=== PATIENT | female | born 1995 | race Hispanic/Latino ===

== ENCOUNTER 2018-04-22 14:53 | Emergency (ER) | payer OTHER, SELFPAY ==
[2018-04-22 14:58] VITALS: BP 120/68; PULSE 84; RESP 16; TEMP 36.6; O2SAT 98; BMI 27.9
--- NOTE | 2018-04-22 15:04 | ED.LOWEXIN ---
HPI - Extremity Injury (Lower) <PRO Dowd - Last Filed: 04/22/18 22:32> General Chief Complaint: Extremity Injury, Lower Stated Complaint: 'NEEDS US FOR LFT LEG' Time Seen by Provider: 04/22/18 15:04 History of Present Illness HPI Narrative: 22-year-old female here for complaint of pain into her left calf for the last few days. She recently had surgery for tunnel release left lower extremity. She was seen by her primary care provider today and due to pain in her calf she was sent here to rule out DVT. She denies any swelling no increased temperature no erythema to the area. She denies any shortness of breath or chest pain. She denies any other concerns or complaints at this time. Related Data Home Medications Medication Instructions Recorded Confirmed No Known Home Medications 04/22/18 04/22/18 Allergies Allergy/AdvReac Type Severity Reaction Status Date / Time No Known Drug Allergies Allergy Verified 04/07/18 12:15 Review of Systems <PRO Dwod - Last Filed: 04/22/18 22:32> Constitutional Denies chills, Denies fever(s), Denies lethargy and Denies weakness Eyes Denies change in vision, Denies eye discharge, Denies irritation and Denies loss of vision ENT Ears, Nose, Mouth, and Throat: Denies change in voice, Denies neck pain and Denies sore throat Cardiovascular Denies chest pain, Denies irregular heart rhythm, Denies lightheadedness, Denies palpitations, Denies dyspnea, Denies dyspnea on exertion and Denies orthopnea Respiratory Denies cough, Denies dyspnea, Denies dyspnea on exertion and Denies wheezing Gastrointestinal Gastrointestinal: Denies abdominal pain, Denies change in bowel habits, Denies diarrhea, Denies nausea and Denies vomiting Genitourinary Denies hematuria, Denies flank pain, Denies urinary incontinence and Denies urinary urgency Musculoskeletal Denies neck pain Comments: Left calf pain Integumentary/Breasts Denies pruritus, Denies erythema, Denies rash and Denies wounds Neurologic Denies loss of vision and Denies weakness Endocrine Denies palpitations Allergic/Immunologic Denies wheezing Exam <PRO Dowd Last Filed: 04/22/18 22:32> Initial Vital Signs Initial Vital Signs: Vital Signs Temperature 98 F 04/22/18 14:58 Pulse Rate 84 04/22/18 14:58 Respiratory Rate 16 04/22/18 14:58 Blood Pressure 120/68 04/22/18 14:58 Pulse Oximetry 98 04/22/18 14:58 Const General: cooperative and well developed Nutritional Appearance: well nourished Orientation: alert, awake, oriented x3 and not confused HENWA Mouth: oral mucosae normal and moist mucous membranes Eyes Sclera: sclerae normal Cornea: corneas normal EOM: EOM intact bilaterally Resp Effort & Inspection: normal respiratory effort, able to speak in complete sentences, no respiratory distress and no use of accessory muscles Auscultation: clear to auscultation bilaterally, no rales, no rhonchi and no wheezes Cardio Rate: regular rate Rhythm: regular rhythm Heart Sounds: no click, no gallops, no murmurs and no rubs Pulses: normal peripheral pulses Skin General: no rashes or lesions noted, No jaundice and No petechiae Neuro General: alert, oriented x3, gait normal and no focal motor deficits Speech: speech normal Extrem Other: Left calf with no swelling no erythema no bruising no deformities. No increased temperature. Homans sign negative. Distal CMS is intact <Vanessa Valenzuela DO - Last Filed: 04/29/18 18:49> Initial Vital Signs Initial Vital Signs: Vital Signs Temperature 98 F 04/22/18 14:58 Pulse Rate 84 04/22/18 14:58 Respiratory Rate 16 04/22/18 14:58 Blood Pressure 120/68 04/22/18 14:58 Pulse Oximetry 98 04/22/18 14:58 Course <PRO Dowd - Last Filed: 04/22/18 22:32> Orders Ordered: ED Orders 04/22/18 15:32 periph venous low extrem lt Stat Vital Signs - 8 hr 04/22/18 14:58 04/22/18 16:59 Temperature 98 F Pulse Rate 84 87 Respiratory Rate 16 15 Blood Pressure 120/68 Blood Pressure [Left Arm] 122/81 H Pulse Oximetry 98 97 <Vanessa Valenzuela DO - Last Filed: 04/29/18 18:49> Orders Ordered: ED Orders 04/22/18 15:32 periph venous low extrem lt Stat Vital Signs - 8 hr 04/22/18 14:58 04/22/18 16:59 Temperature 98 F Pulse Rate 84 87 Respiratory Rate 16 15 Blood Pressure 120/68 Blood Pressure [Left Arm] 122/81 H Pulse Oximetry 98 97 MDM - Extremity Injury (Lower) <PRO Dowd - Last Filed: 04/22/18 22:32> [facility] Narrative Medical decision making narrative: Ultrasound of left lower extremity was obtained and was negative for DVT. Signs and symptoms presents as calf pain secondary to her recent surgery for tarsal tunnel release. [id number] Tylenol or Motrin as needed for any discomfort. Follow up with primary care provider. For any worsening symptoms return to the emergency room. Discharge Plan Departure Patient Disposition: Home, Self-Care Clinical Impression: Leg pain, left Discharge Date/Time: 04/22/18 17:10 Interventions: ED Discharge Assessment Last Done: 04/22/18 17:08 Instructions: How to Care for a Surgical Wound Activity Restrictions/Additional Instructions: Ultrasound of left lower extremity was obtained and was negative for DVT. Signs and symptoms presents as calf pain secondary to her recent surgery for tarsal tunnel release. [id number] Tylenol or Motrin as needed for any discomfort. Follow up with primary care provider. For any worsening symptoms return to the emergency room. Prescriptions: No Action No Known Home Medications RF: 0 Referrals: [facility] [Provider Group] <Vanessa Valenzuela DO - Last Filed: 04/29/18 18:49> Cosign ED Attending Ghazala Attestation: I was immediately available in the department for consultation. Documentation has been reviewed. I agree with assessment and plan.
--- NOTE | 2018-04-22 15:27 | PC.NURSE ---
Pt with recent surgery. Reports cramping in calf starting a few days ago. Followed up with her ortho doc today and sent for possible dvt. Pt reports increased pain with palpation of calf.
--- NOTE | 2018-04-22 15:32 | DI.US.S_ITS ---
PROCEDURE: US PERIPH VENOUS LOW EXTREM LT INDICATIONS: pain in calf after recent surgery. TECHNIQUE: Real-time imaging, as well as color and pulse Doppler interrogation, were performed of the lower extremity deep veins from the inguinal ligament to the popliteal fossa. COMPARISON: None. FINDINGS: The deep veins are normally compressible, and free of intraluminal thrombus. Color and pulse Doppler demonstrate normal phasic intraluminal flow. There is normal augmentation response to distal compression maneuver. IMPRESSION: Negative for DVT Dictated by: Jese Monroy M.D. on 04/22/2018 at 16:54 Approved by: Jese Monroy M.D. on 04/22/2018 at 16:55
[2018-04-22 16:59] VITALS: BP 122/81; PULSE 87; RESP 15; O2SAT 97
== END 2018-04-22 17:10 | disposition home or self-care (01) ==
PROVIDERS: Emergency Provider Nurse Practitioner Family
DX: M79.662 Pain in left lower leg (principal)
CPT/HCPCS: 93971; 99282; 99283

== ENCOUNTER 2018-10-11 21:49 | Emergency (ER) | payer OTHER, SELFPAY ==
[2018-10-11 21:59] VITALS: BP 126/79; PULSE 88; RESP 22; TEMP 37.1; O2SAT 100
--- NOTE | 2018-10-11 22:34 | DI.CT.S_ITS ---
PROCEDURE: CT ABDOMEN PELVIS W CON INDICATIONS: LUQ pain >LLQ pain, slight lft elevated last week TECHNIQUE: After the administration of intravenous contrast, 5 mm thick sections acquired from the diaphragm to the symphysis. 5 mm coronal and sagittal reformats were acquired. For radiation dose reduction, the following was used: automated exposure control, adjustment of mA and/or kV according to patient size. COMPARISON: None. FINDINGS: Image quality: Excellent. ABDOMEN: Lung bases: Lung bases are clear. Heart size is normal. Solid organs: Liver is normal in size and enhancement. Gallbladder surgically absent. Biliary system is non dilated. Pancreas enhances normally. Spleen is normal in size and enhancement. No adrenal nodules. Kidneys demonstrate normal size and enhancement, without hydronephrosis. Peritoneum and bowel: Bowel loops demonstrate normal wall thickness and caliber. No free fluid or air. Appendix partially visualized and appears normal on image 64 series 2 Nodes and vessels: No retroperitoneal or mesenteric adenopathy by size criteria. Aorta and inferior vena cava are normal in size. Miscellaneous: No ventral hernias. PELVIS: Genitourinary: Bladder wall thickness is normal. There is a presumed physiologic involuting right ovarian cyst image 71 series 2 measuring 2 cm. There is mild surrounding fluid. Miscellaneous: No inguinal hernias or adenopathy. Bones: No suspicious bony lesions. No vertebral body compression fractures. IMPRESSION: Presumed involuting right ovarian cyst (in the setting of NEGATIVE test, which is clinically reported) with associated mild adjacent free fluid. Status post cholecystectomy. Mild hepatic steatosis. Elsewhere, no acute process. Dictated by: Chris Barahona M.D. on 10/12/2018 at 7:53 Approved by: Chris Barahona M.D. on 10/12/2018 at 7:57
--- NOTE | 2018-10-11 22:34 | ED.ABDPAIN ---
HPI - Abdominal Pain General Chief Complaint: Abdominal Pain Stated Complaint: Nausea,pain left side lower ribs Time Seen by Provider: 10/11/18 22:18 Source: patient Mode of arrival: ambulatory Limitations: no limitations History of Present Illness HPI narrative: This is a 23-year-old female who comes to the emergency department with complaint of abdominal pain. She states it has been going on for the last 2 or 3 days. I would send her left back and front of the upper abdomen kind of under her ribs. She states not in her chest. She states it has been pretty intermittent particularly with eating or lying flat. She states that she has been nauseated she is not having regular vomiting. She has been having bowel movements, she has not had diarrhea. She is not having any urinary frequency urgency or dysuria. She is not having any vaginal discharge or bleeding. Patient states she has had issues with right upper quadrant pain and had her gallbladder out. She has continued to have some right upper quadrant issues takes medication for it but was told to stop because her liver enzymes were slightly elevated. She is scheduled to have her enzymes rechecked in about 2 weeks and have an ultrasound. Patient states this pain is new and well feels sort of similar is a totally different location. She has not had fevers. Related Data Previous Rx's Medication Instructions Recorded cephalexin [Keflex] 500 mg PO BID #20 cap 10/12/18 Allergies Allergy/AdvReac Type Severity Reaction Status Date / Time No Known Drug Allergies Allergy Verified 04/07/18 12:15 Review of Systems Review of Systems All systems reviewed & are unremarkable except as noted in HPI and below Constitutional Denies chills and Denies fever(s) Cardiovascular Denies chest pain and Denies dyspnea Respiratory Reports pain on inspiration (in abdomen) and Denies dyspnea Gastrointestinal Gastrointestinal: Reports abdominal pain, Denies melena, Denies hematochezia, Denies change in bowel habits, Denies constipation, Denies diarrhea, Reports nausea and Denies vomiting Genitourinary Denies abnormal vaginal bleeding, Denies hematuria, Denies urinary frequency, Denies dysuria, Denies pelvic pain, Reports flank pain (left), Denies urinary hesitancy, Denies urinary urgency and Denies vaginal discharge Musculoskeletal Reports back pain (left flank pain) [facility] Medical History Closed left ankle fracture (Acute) Gastritis (Acute) Numbness (Acute) Surgical History Hx of cholecystectomy (Acute) Social History household members: significant other Smoking Status: Never smoker alcohol intake: never Exam Narrative Exam Narrative: GENERAL: Alert and oriented x three, Well-nourished, well-appearing female in moderate distress. HEENT: Head normocephalic, atraumatic, EOMI, pupils reactive, face symmetric, moist mucous membranes NECK: Supple, full range of motion CARDIOVASCULAR: Regular rate and rhythm without murmurs, rubs or gallops. RESPIRATORY: Breath sounds equal bilaterally, no wheezes rales or rhonchi. ABDOMEN: Soft, Patient has left upper quadrant tenderness greater than left lower although she is quite uncomfortable with palpation of both. Normoactive bowel sounds all 4 quadrants. No guarding or rebound, rigidity, no mass, No pulsatile bruit. Patient does not have any right upper quadrant tenderness or right lower quadrant tenderness. : mild left CVA tenderness, no right CVA tenderness. EXTREMITIES: Normal range of motion, no clubbing or edema. Neurovascularly intact NEUROLOGICAL: Cranial nerves II through XII grossly intact. Moving all extremities SKIN: Warm, dry, no petechiae, no rashes or lesions. Initial Vital Signs Initial Vital Signs: Vital Signs Temperature 98.7 F 10/11/18 21:59 Pulse Rate 88 10/11/18 21:59 Respiratory Rate 22 10/11/18 21:59 Blood Pressure 126/79 10/11/18 21:59 Pulse Oximetry 100 10/11/18 21:59 Course Orders Ordered: ED Orders 10/11/18 22:20 Complete Blood Count AUTO DIFF Stat Comprehensive Metabolic Panel Stat Lipase Stat Partial Thromboplastin Time Stat Prothrombin Time INR Stat 10/11/18 22:34 CT abdomen pelvis w con Stat 10/12/18 00:10 Urine Microscopic Stat Discontinued Medications Hydrocodone Bitart/Acetaminophen (Vicodin Prepack) 1 bottle MISC SEEINSTR ONE Stop: 10/12/18 01:04 Last Admin: 10/12/18 01:26 Dose: 1 bottle Cephalexin HCl (Keflex) 500 mg PO NOW ONE Stop: 10/12/18 01:04 Last Admin: 10/12/18 01:26 Dose: 500 mg Sodium Chloride (Normal Saline 0.9%) 1,000 mls @ 1,000 mls/hr IV BOLUS ONE Stop: 10/11/18 23:32 Last Infusion: 10/11/18 23:46 Dose: 0 mls/hr Admin: 10/11/18 22:46 Dose: 1,000 mls/hr Ketorolac Tromethamine (Toradol) 30 mg IV NOW ONE Stop: 10/11/18 22:34 Last Admin: 10/11/18 22:46 Dose: 30 mg Ondansetron HCl (Zofran) 4 mg IV NOW ONE Stop: 10/11/18 22:34 Last Admin: 10/11/18 22:46 Dose: 4 mg Vital Signs - 8 hr 10/11/18 21:59 10/12/18 01:34 Temperature 98.7 F Pulse Rate 88 72 Respiratory Rate 22 16 Blood Pressure 126/79 110/65 Pulse Oximetry 100 98 MDM - Abdominal Pain Lab Data Result diagrams: 10/11/18 22:20 10/11/18 22:20 Lab Results 10/11/18 10/11/18 10/11/18 Range/Units 22:20 22:20 22:20 WBC 12.3 H (4.5-11.0) X10^3/uL RBC 4.54 (4.0-5.2) X10^6/uL Hgb 13.8 (12.0-16.0) g/dL Hct 39.5 (36-46) % MCV 86.9 (80-100) fL MCH 30.4 (26-34) PG MCHC 35.0 (30-36) % RDW 13.4 (11.6-14.8) % Plt Count 339 (150-400) X10^3/uL Neut % (Auto) 52.6 (50-75) % Lymph % (Auto) 39.1 (25-40) % [place] % (Auto) 5.9 (3-14) % Eos % (Auto) 1.8 L (2-4) % Baso % (Auto) 0.6 (0-2) % Neut # (Auto) 6500 H (4322-9135) /uL PT 11.2 (10.1-12.7) SECONDS INR 1.0 (0.9-1.3) APTT 30 (26.4-36.2) SECONDS Sodium 141 (137-145) mmol/L Potassium 3.9 (3.4-5.1) mmol/L Chloride 107 (98-107) mmol/L Carbon Dioxide 20 L (22-32) mmol/L BUN 6 L (7-17) mg/dL Creatinine 0.50 L (0.52-1.04) mg/dL Estimated GFR > 60.0 (>60) mL/min BUN/Creatinine Ratio 12.0 (6-22) Glucose 110 H (70-100) mg/dL Calcium 9.2 (8.4-10.2) mg/dL Total Bilirubin 0.3 (0.2-1.3) mg/dL AST 75 H (14-36) IU/L ALT 124 H (9-52) IU/L Alkaline Phosphatase 66 (38-126) U/L Total Protein 8.1 (6.3-8.2) g/dL Albumin 4.6 (3.5-5.0) g/dL Globulin 3.5 (1.7-4.1) g/dL Albumin/Globulin Ratio 1.3 (1.0-2.8) Lipase 101 (23-300) U/L Urine RBC (0-5/HPF) Urine WBC (0-5/HPF) Ur Squamous Epith Cells Urine Bacteria (None) Ur Culture Indicated? Micro UA Comment 10/12/18 Range/Units 00:10 WBC (4.5-11.0) X10^3/uL RBC (4.0-5.2) X10^6/uL Hgb (12.0-16.0) g/dL Hct (36-46) % MCV (80-100) fL MCH (26-34) PG MCHC (30-36) % RDW (11.6-14.8) % Plt Count (150-400) X10^3/uL Neut % (Auto) (50-75) % Lymph % (Auto) (25-40) % [place] % (Auto) (3-14) % Eos % (Auto) (2-4) % Baso % (Auto) (0-2) % Neut # (Auto) (8591-1248) /uL PT (10.1-12.7) SECONDS INR (0.9-1.3) APTT (26.4-36.2) SECONDS Sodium (137-145) mmol/L Potassium (3.4-5.1) mmol/L Chloride (98-107) mmol/L Carbon Dioxide (22-32) mmol/L BUN (7-17) mg/dL Creatinine (0.52-1.04) mg/dL Estimated GFR (>60) mL/min BUN/Creatinine Ratio (6-22) Glucose (70-100) mg/dL Calcium (8.4-10.2) mg/dL Total Bilirubin (0.2-1.3) mg/dL AST (14-36) IU/L ALT (9-52) IU/L Alkaline Phosphatase (38-126) U/L Total Protein (6.3-8.2) g/dL Albumin (3.5-5.0) g/dL Globulin (1.7-4.1) g/dL Albumin/Globulin Ratio (1.0-2.8) Lipase (23-300) U/L Urine RBC 0-1/hpf (0-5/HPF) Urine WBC 1-5/hpf (0-5/HPF) Ur Squamous Epith Cells 5-10 /hpf H Urine Bacteria Few (2-10) H (None) Ur Culture Indicated? Cult not indicated Micro UA Comment Not Reportable Point of care testing: Point of Care Testing Test Results Negative Urine Dip Bedside Urine Glucose Negative Bedside Urine Bilirubin - Negative Bedside Urine Ketone - Negative Urine Specific [place] 1.015 Bedside Urine Occult Blood - Negative Bedside Urine pH 7.5 Bedside Urine Protein - Negative Bedside Urine Urobilinogen - Negative Bedside Urine Nitrite - Negative Bedside Urine Leukocytes + 70 Esterase MDM Narrative Medical decision making narrative: Recheck after medications, patient feels the same. Discussed will do oral medication. Labs shows elevation wbc at 12, continues to have slightly elevation of LFT's were similar thru pcp. Urine has LE, bacteria and sent for culture. Discussed could possibly be pyelonephritis although not definitive diagnosis. Patient CT showed right ovarian cyst but pain is left more upper quadrant, some left. Possibly free fluid if it was blood would be irritating to the abdomen and cause pain particularly when she is lying back but she really cause left upper quadrant discomfort when she is sitting up. Discussed that we will treat for pyelo, symptoms should be improving in the next 24 hr. Signs/symptoms. Discharge Plan Departure Patient Disposition: Home Clinical Impression: Cyst of right ovary, Pyelonephritis Discharge Date/Time: 10/12/18 01:34 Interventions: ED Discharge Assessment Last Done: 10/12/18 01:34 Instructions: DI for Abdominal Pain-Adult Activity Restrictions/Additional Instructions: Follow-up with primary care in the next 2-3 days for recheck. Your CT shows a cyst on the right ovary, there is a small amount of free fluid. Your urine shows possible UTI. Take antibiotics as prescribed. Take until gone. Take pain medication as prescribed, you may take 1 tablet every 6 hr as needed for pain Return to the emergency department for fevers greater than 100.4, persistent vomiting, rapidly worsening or increasing abdominal pain, black or bloody stools, or other new or concerning symptoms. Prescriptions: New cephalexin [Keflex] 500 mg capsule 500 mg PO BID Qty: 20 RF: 0
[2018-10-11 22:38] LABS: Prothrombin Time 11.2 SECONDS (10.1-12.7)
--- NOTE | 2018-10-11 22:38 | ED_ITS ---
HPI - Abdominal Pain General Chief Complaint: Abdominal Pain Stated Complaint: Nausea,pain left side lower ribs Time Seen by Provider: 10/11/18 22:18 Source: patient Mode of arrival: ambulatory Limitations: no limitations History of Present Illness HPI narrative: This is a 23-year-old female who comes to the emergency department with complaint of abdominal pain. She states it has been going on for the last 2 or 3 days. I would send her left back and front of the upper abdomen kind of under her ribs. She states not in her chest. She states it has been pretty intermittent particularly with eating or lying flat. She states that she has been nauseated she is not having regular vomiting. She has been having bowel movements, she has not had diarrhea. She is not having any urinary frequency urgency or dysuria. She is not having any vaginal discharge or bleeding. Patient states she has had issues with right upper quadrant pain and had her gallbladder out. She has continued to have some right upper quadrant issues takes medication for it but was told to stop because her liver enzymes were slightly elevated. She is scheduled to have her enzymes rechecked in about 2 weeks and have an ultrasound. Patient states this pain is new and well feels sort of similar is a totally different location. She has not had fevers. Related Data Previous Rx's Medication Instructions Recorded cephalexin [Keflex] 500 mg PO BID #20 cap 10/12/18 Allergies Allergy/AdvReac Type Severity Reaction Status Date / Time No Known Drug Allergies Allergy Verified 04/07/18 12:15 Review of Systems Review of Systems All systems reviewed & are unremarkable except as noted in HPI and below Constitutional Denies chills and Denies fever(s) Cardiovascular Denies chest pain and Denies dyspnea Respiratory Reports pain on inspiration (in abdomen) and Denies dyspnea Gastrointestinal Gastrointestinal: Reports abdominal pain, Denies melena, Denies hematochezia, Denies change in bowel habits, Denies constipation, Denies diarrhea, Reports nausea and Denies vomiting Genitourinary Denies abnormal vaginal bleeding, Denies hematuria, Denies urinary frequency, Denies dysuria, Denies pelvic pain, Reports flank pain (left), Denies urinary hesitancy, Denies urinary urgency and Denies vaginal discharge Musculoskeletal Reports back pain (left flank pain) [facility] Medical History Closed left ankle fracture (Acute) Gastritis (Acute) Numbness (Acute) Surgical History Hx of cholecystectomy (Acute) Social History household members: significant other Smoking Status: Never smoker alcohol intake: never Exam Narrative Exam Narrative: GENERAL: Alert and oriented x three, Well-nourished, well- appearing female in moderate distress. HEENT: Head normocephalic, atraumatic, EOMI, pupils reactive, face symmetric, moist mucous membranes NECK: Supple, full range of motion CARDIOVASCULAR: Regular rate and rhythm without murmurs, rubs or gallops. RESPIRATORY: Breath sounds equal bilaterally, no wheezes rales or rhonchi. ABDOMEN: Soft, Patient has left upper quadrant tenderness greater than left lower although she is quite uncomfortable with palpation of both. Normoactive bowel sounds all 4 quadrants. No guarding or rebound, rigidity, no mass, No pulsatile bruit. Patient does not have any right upper quadrant tenderness or right lower quadrant tenderness. : mild left CVA tenderness, no right CVA tenderness. EXTREMITIES: Normal range of motion, no clubbing or edema. Neurovascularly intact NEUROLOGICAL: Cranial nerves II through XII grossly intact. Moving all extremities SKIN: Warm, dry, no petechiae, no rashes or lesions. Initial Vital Signs Initial Vital Signs: Vital Signs Temperature 98.7 F 10/11/18 21:59 Pulse Rate 88 10/11/18 21:59 Respiratory Rate 22 10/11/18 21:59 Blood Pressure 126/79 10/11/18 21:59 Pulse Oximetry 100 10/11/18 21:59 Course Orders Ordered: ED Orders 10/11/18 22:20 Complete Blood Count AUTO DIFF Stat Comprehensive Metabolic Panel Stat Lipase Stat Partial Thromboplastin Time Stat Prothrombin Time INR Stat 10/11/18 22:34 CT abdomen pelvis w con Stat 10/12/18 00:10 Urine Microscopic Stat Discontinued Medications Hydrocodone Bitart/Acetaminophen (Vicodin Prepack) 1 bottle MISC SEEINSTR ONE Stop: 10/12/18 01:04 Last Admin: 10/12/18 01:26 Dose: 1 bottle Cephalexin HCl (Keflex) 500 mg PO NOW ONE Stop: 10/12/18 01:04 Last Admin: 10/12/18 01:26 Dose: 500 mg Sodium Chloride (Normal Saline 0.9%) 1,000 mls @ 1,000 mls/hr IV BOLUS ONE Stop: 10/11/18 23:32 Last Infusion: 10/11/18 23:46 Dose: 0 mls/hr Admin: 10/11/18 22:46 Dose: 1,000 mls/hr Ketorolac Tromethamine (Toradol) 30 mg IV NOW ONE Stop: 10/11/18 22:34 Last Admin: 10/11/18 22:46 Dose: 30 mg Ondansetron HCl (Zofran) 4 mg IV NOW ONE Stop: 10/11/18 22:34 Last Admin: 10/11/18 22:46 Dose: 4 mg Vital Signs - 8 hr 10/11/18 21:59 10/12/18 01:34 Temperature 98.7 F Pulse Rate 88 72 Respiratory Rate 22 16 Blood Pressure 126/79 110/65 Pulse Oximetry 100 98 MDM - Abdominal Pain Lab Data Result diagrams: 10/11/18 22:20 10/11/18 22:20 Lab Results 10/11/18 10/11/18 10/11/18 Range/Units 22:20 22:20 22:20 WBC 12.3 H (4.5-11.0) X10^3/uL RBC 4.54 (4.0-5.2) X10^6/uL Hgb 13.8 (12.0-16.0) g/dL Hct 39.5 (36-46) % MCV 86.9 (80-100) fL MCH 30.4 (26-34) PG MCHC 35.0 (30-36) % RDW 13.4 (11.6-14.8) % Plt Count 339 (150-400) X10^3/uL Neut % (Auto) 52.6 (50-75) % Lymph % (Auto) 39.1 (25-40) % [place] % (Auto) 5.9 (3-14) % Eos % (Auto) 1.8 L (2-4) % Baso % (Auto) 0.6 (0-2) % Neut # (Auto) 6500 H (9494-9279) /uL PT 11.2 (10.1-12.7) SECONDS INR 1.0 (0.9-1.3) APTT 30 (26.4-36.2) SECONDS Sodium 141 (137-145) mmol/L Potassium 3.9 (3.4-5.1) mmol/L Chloride 107 (98-107) mmol/L Carbon Dioxide 20 L (22-32) mmol/L BUN 6 L (7-17) mg/dL Creatinine 0.50 L (0.52-1.04) mg/dL Estimated GFR > 60.0 (>60) mL/min BUN/Creatinine Ratio 12.0 (6-22) Glucose 110 H (70-100) mg/dL Calcium 9.2 (8.4-10.2) mg/dL Total Bilirubin 0.3 (0.2-1.3) mg/dL AST 75 H (14-36) IU/L ALT 124 H (9-52) IU/L Alkaline Phosphatase 66 (38-126) U/L Total Protein 8.1 (6.3-8.2) g/dL Albumin 4.6 (3.5-5.0) g/dL Globulin 3.5 (1.7-4.1) g/dL Albumin/Globulin Ratio 1.3 (1.0-2.8) Lipase 101 (23-300) U/L Urine RBC (0-5/HPF) Urine WBC (0-5/HPF) Ur Squamous Epith Cells Urine Bacteria (None) Ur Culture Indicated? Micro UA Comment 10/12/18 Range/Units 00:10 WBC (4.5-11.0) X10^3/uL RBC (4.0-5.2) X10^6/uL Hgb (12.0-16.0) g/dL Hct (36-46) % MCV (80-100) fL MCH (26-34) PG MCHC (30-36) % RDW (11.6-14.8) % Plt Count (150-400) X10^3/uL Neut % (Auto) (50-75) % Lymph % (Auto) (25-40) % [place] % (Auto) (3-14) % Eos % (Auto) (2-4) % Baso % (Auto) (0-2) % Neut # (Auto) (9663-2579) /uL PT (10.1-12.7) SECONDS INR (0.9-1.3) APTT (26.4-36.2) SECONDS Sodium (137-145) mmol/L Potassium (3.4-5.1) mmol/L Chloride (98-107) mmol/L Carbon Dioxide (22-32) mmol/L BUN (7-17) mg/dL Creatinine (0.52-1.04) mg/dL Estimated GFR (>60) mL/min BUN/Creatinine Ratio (6-22) Glucose (70-100) mg/dL Calcium (8.4-10.2) mg/dL Total Bilirubin (0.2-1.3) mg/dL AST (14-36) IU/L ALT (9-52) IU/L Alkaline Phosphatase (38-126) U/L Total Protein (6.3-8.2) g/dL Albumin (3.5-5.0) g/dL Globulin (1.7-4.1) g/dL Albumin/Globulin Ratio (1.0-2.8) Lipase (23-300) U/L Urine RBC 0-1/hpf (0-5/HPF) Urine WBC 1-5/hpf (0-5/HPF) Ur Squamous Epith Cells 5-10 /hpf H Urine Bacteria Few (2-10) H (None) Ur Culture Indicated? Cult not indicated Micro UA Comment Not Reportable Point of care testing: Point of Care Testing Test Results Negative Urine Dip Bedside Urine Glucose Negative Bedside Urine Bilirubin - Negative Bedside Urine Ketone - Negative Urine Specific [place] 1.015 Bedside Urine Occult Blood - Negative Bedside Urine pH 7.5 Bedside Urine Protein - Negative Bedside Urine Urobilinogen - Negative Bedside Urine Nitrite - Negative Bedside Urine Leukocytes + 70 Esterase MDM Narrative Medical decision making narrative: Recheck after medications, patient feels the same. Discussed will do oral medication. Labs shows elevation wbc at 12, continues to have slightly elevation of LFT's were similar thru pcp. Urine has LE, bacteria and sent for culture. Discussed could possibly be pyelonephritis although not definitive diagnosis. Patient CT showed right ovarian cyst but pain is left more upper quadrant, some left. Possibly free fluid if it was blood would be irritating to the abdomen and cause pain particularly when she is lying back but she really cause left upper quadrant discomfort when she is sitting up. Discussed that we will treat for pyelo, symptoms should be improving in the next 24 hr. Signs/symptoms. Discharge Plan Departure Patient Disposition: Home Clinical Impression: Cyst of right ovary, Pyelonephritis Discharge Date/Time: 10/12/18 01:34 Interventions: ED Discharge Assessment Last Done: 10/12/18 01:34 Instructions: DI for Abdominal Pain-Adult Activity Restrictions/Additional Instructions: Follow-up with primary care in the next 2-3 days for recheck. Your CT shows a cyst on the right ovary, there is a small amount of free fluid. Your urine shows possible UTI. Take antibiotics as prescribed. Take until gone. Take pain medication as prescribed, you may take 1 tablet every 6 hr as needed for pain Return to the emergency department for fevers greater than 100.4, persistent vomiting, rapidly worsening or increasing abdominal pain, black or bloody stools , or other new or concerning symptoms. Prescriptions: New cephalexin [Keflex] 500 mg capsule 500 mg PO BID Qty: 20 RF: 0
[2018-10-11 22:41] LABS: PTT Partial Thromboplastin Tim 30 SECONDS (26.4-36.2)
[2018-10-11 22:42] LABS: Add Manual Diff / Slide Review NO; Basophils Percent Auto 0.6 % (0-2); Eosinophils Percent Auto 1.8 % (2-4); Hematocrit 39.5 % (36-46); Hemoglobin 13.8 g/dL (12.0-16.0); Lymphocytes Percent Auto 39.1 % (25-40); Mean Corpuscular Hemoglobin 30.4 PG (26-34); Mean Corpuscular Volume 86.9 fL (80-100); Monocytes Percent Auto 5.9 % (3-14); Neutrophils Absolute Auto 6500 /uL (3000-5900); Neutrophils Percent Auto 52.6 % (50-75); Platelet Count 339 X10^3/uL (150-400); Red Blood Cell Count 4.54 X10^6/uL (4.0-5.2); Red Cell Distribution Width 13.4 % (11.6-14.8); White Blood Cell Count 12.3 X10^3/uL (4.5-11.0)
[2018-10-11 22:46] LABS: Alanine Aminotransferase 124 IU/L (9-52); Albumin 4.6 g/dL (3.5-5.0); Albumin Globulin Ratio 1.3 (1.0-2.8); Alkaline Phosphatase 66 U/L (38-126); Aspartate Aminotransferase 75 IU/L (14-36); Bilirubin Total 0.3 mg/dL (0.2-1.3); Blood Urea Nitrogen 6 mg/dL (7-17); Calcium 9.2 mg/dL (8.4-10.2); Carbon Dioxide 20 mmol/L (22-32); Chloride 107 mmol/L (98-107); Estimated Glomerular Filt Rate > 60.0 mL/min (>60); Globulin 3.5 g/dL (1.7-4.1); Glucose 110 mg/dL (70-100); HEMOLYSIS < 15 (0-50); Lipase 101 U/L (23-300); Potassium 3.9 mmol/L (3.4-5.1); Sodium 141 mmol/L (137-145); Total Protein 8.1 g/dL (6.3-8.2)
[2018-10-11] MEDS: ONDANSETRON 4 MG/2 ML INJ IV (22:46)
[2018-10-11] MEDS: KETOROLAC 60 MG/2 ML VIAL 30 MG IV (22:46)
[2018-10-11] MEDS: SODIUM CHLORIDE 0.9% 1,000 ML 1000 ML IV (22:46)
[2018-10-12 00:24] LABS: RBC Urine 0-1/HPF (0-5/HPF); Squamous Epithelial Cell Urine 5-10 /HPF; WBC Urine 1-5/HPF (0-5/HPF)
[2018-10-12 00:25] LABS: Bacteria Urine Few (2-10); Culture Indicated Urine Cult Not Indicated
[2018-10-12] MEDS: HYDROCODONE/ACET 5/325 PREPACK 1 BOTTLE MISC (01:26)
[2018-10-12] MEDS: cephALEXin 250 MG CAPSULE 500 MG PO (01:26)
[2018-10-12 01:34] VITALS: BP 110/65; PULSE 72; RESP 16; O2SAT 98
== END 2018-10-12 01:34 | disposition home or self-care (01) ==
PROVIDERS: Emergency Provider Emergency Medicine
DX: N83.201 Unspecified ovarian cyst, right side (principal); N12 Tubulo-interstitial nephritis, not specified as acute or chronic
CPT/HCPCS: 36591; 74177; 80053; 81003; 81015; 81025; 83690; 85025; 85610; 85730; 96361; 96374; 96375; 99283; 99285; J1885; J2405; Q9967

== ENCOUNTER 2019-09-04 21:17 | Emergency (ER) | payer OTHER, SELFPAY ==
[2019-09-04 21:20] VITALS: BP 129/92; PULSE 104; RESP 20; TEMP 37.1; O2SAT 99; BMI 27.3
[2019-09-04 21:51] LABS: Add Manual Diff / Slide Review NO; Basophils Absolute Auto 100 /uL (0-100); Basophils Percent Auto 0.5 % (0-2); Eosinophils Absolute Auto 0 /uL (0-450); Eosinophils Percent Auto 0.1 % (2-4); Hematocrit 41.3 % (36-46); Hemoglobin 14.6 g/dL (12.0-16.0); Lymphocytes Absolute Auto 3400 /uL (1100-4500); Mean Corpuscular HGB Conc 35.3 % (30-36); Mean Corpuscular Hemoglobin 30.9 PG (26-34); Mean Corpuscular Volume 87.7 fL (80-100); Monocytes Absolute Auto 500 /uL (0-900); Monocytes Percent Auto 4.3 % (3-14); Neutrophils Absolute Auto 7800 /uL (1500-7000); Neutrophils Percent Auto 66.1 % (50-75); Platelet Count 366 X10^3/uL (150-400); Red Blood Cell Count 4.71 X10^6/uL (4.0-5.2); Red Cell Distribution Width 13.4 % (11.6-14.8); White Blood Cell Count 11.8 X10^3/uL (4.5-11.0)
[2019-09-04 21:57] LABS: Alanine Aminotransferase 37 IU/L (9-52); Albumin 4.8 g/dL (3.5-5.0); Albumin Globulin Ratio 1.3 (1.0-2.8); Alkaline Phosphatase 65 U/L (38-126); Aspartate Aminotransferase 25 IU/L (14-36); Bilirubin Total 0.6 mg/dL (0.2-1.3); Blood Urea Nitrogen 6 mg/dL (7-17); Calcium 9.5 mg/dL (8.4-10.2); Carbon Dioxide 27 mmol/L (22-32); Chloride 103 mmol/L (98-107); Estimated Glomerular Filt Rate > 60.0 mL/min (>60); Globulin 3.6 g/dL (1.7-4.1); Glucose 105 mg/dL (70-100); HEMOLYSIS < 15 (0-50); Lipase 77 U/L (23-300); Potassium 3.6 mmol/L (3.4-5.1); Sodium 140 mmol/L (137-145); Total Protein 8.4 g/dL (6.3-8.2)
[2019-09-04 22:04] VITALS: BP 120/63; PULSE 108; RESP 20; O2SAT 99
--- NOTE | 2019-09-04 22:42 | ED_ITS ---
HPI - Nausea/Vomiting/Diarrhea General Chief complaint: Nausea/Vomiting/Diarrhea Stated complaint: vomiting all day Time Seen by Provider: 09/04/19 21:33 Source: patient Mode of arrival: Ambulatory Limitations: no limitations History of Present Illness HPI Narrative: PATIENT IS A 24-YEAR-OLD FEMALE WITH HISTORY OF RHEUMATOID ARTHRITIS, lupus, sjorens, on prednisone and Humira presenting with vomiting. She says she did not feel quite well yesterday but was able to keep Pedialyte down. Today she has been vomiting all day unable to keep anything down. She has epigastric pain. She denies any right upper quadrant pain she has had a cholecystectomy. She has no lower abdominal pain or diarrhea. She is afebrile. MD complaint: nausea and vomiting Onset (ago): day(s) (1) Description of Diarrhea: none Location of pain: epigastric Related Data Previous Rx's Medication Instructions Recorded cephalexin [Keflex] 500 mg PO BID #20 cap 10/12/18 ondansetron 4 mg PO Q8H PRN #10 tab 09/05/19 Allergies Allergy/AdvReac Type Severity Reaction Status Date / Time No Known Drug Allergies Allergy Verified 04/07/18 12:15 Review of Systems Review of Systems Narrative: GENERAL: Denies chills, fatigue, malaise, fever, sweats, travel HEENT: Denies sinus pain, ear pain, sore throat, difficulty swallowing, neck pain RESPIRATORY: Denies dyspnea, cough, wheezing, hemoptysis, sputum. CARDIOVASCULAR: Denies chest pain, palpitations, orthopnea, edema GASTROINTESTINAL: See HPI : Denies dysuria, frequency, incontinence, hematuria, urinary retention, flank pain. MUSCULOSKELETAL: Denies weakness, joint pain, or bony pain SKIN: No rash, no erythema, no pruritus NEUROLOGIC: Denies weakness, dizziness, headache, numbness, change in speech, confusion PSYCHIATRIC: No concerning psychosocial issues. 12 point review of systems is negative except for those stated above and HPI Patient History Medical/Surgical History Medical History Closed left ankle fracture (Acute) Gastritis (Acute) Numbness (Acute) Surgical History Hx of cholecystectomy (Acute) Social History household members: significant other Smoking Status: Never smoker alcohol intake: never Family/Social History Social History household members: significant other Smoking Status: Never smoker alcohol intake: never Substance Use Type: does not use Exam Initial Vital Signs Initial Vital Signs: Vital Signs Temperature 98.7 F 09/04/19 21:20 Pulse Rate 104 H 09/04/19 21:20 Respiratory Rate 20 09/04/19 21:20 Blood Pressure 129/92 H 09/04/19 21:20 Pulse Oximetry 99 09/04/19 21:20 GENERAL: Tearful young female and in no acute distress. HEENT: Head atraumatic,EOMI, pupils reactive, face symmetric, moist mucous membranes CARDIOVASCULAR: Regular rate and rhythm without murmurs, rubs or gallops. RESPIRATORY: Breath sounds equal bilaterally, no wheezes rales or rhonchi. ABDOMEN: Soft, tender epigastric area no right upper quadrant. Normoactive bowel sounds all 4 quadrants. No guarding or rebound. EXTREMITIES: Normal range of motion, no clubbing or edema. Neurovascularly intact NEUROLOGICAL: Alert and oriented x4.Normal gait and speech. Cranial nerves II through XII grossly intact. SKIN: Warm, dry, no laceration, no petechiae, no rashes or lesions. Course Orders Ordered: ED Orders 09/04/19 21:40 Complete Blood Count AUTO DIFF Stat Comprehensive Metabolic Panel Stat Lipase Stat Discontinued Medications Sodium Chloride (Normal Saline 0.9%) 1,000 mls @ 1,000 mls/hr IV CONT EMERY Last Infusion: 09/05/19 00:33 Dose: 0 mls/hr Documented by: Admin: 09/04/19 23:06 Dose: 1,000 mls/hr Documented by: SANDY Ondansetron HCl (Zofran) 4 mg IV NOW ONE Stop: 09/04/19 21:34 Last Admin: 09/04/19 23:06 Dose: 4 mg Documented by: SANDY Ondansetron HCl (Zofran Odt Prepack) 1 bottle MISC SEEINSTR ONE Stop: 09/05/19 00:06 Last Admin: 09/05/19 00:33 Dose: 1 bottle Documented by: SANDY Pantoprazole Sodium (Protonix) 40 mg IV NOW ONE Stop: 09/04/19 21:34 Last Admin: 09/04/19 23:06 Dose: 40 mg Documented by: SANDY Vital Signs Vital signs: Vital Signs - 8 hr 09/04/19 21:20 09/04/19 22:04 09/05/19 00:42 Temperature 98.7 F Pulse Rate 104 H 108 H 73 Respiratory Rate 20 20 16 Blood Pressure 129/92 H 123/105 H Blood Pressure [Left Arm] 120/63 Pulse Oximetry 99 99 98 MDM - Nausea/Vomiting/Diarrhea Lab Data Attestation: I reviewed the patient's lab results. Result diagrams: 09/04/19 21:40 09/04/19 21:40 Labs: Lab Results 09/04/19 09/04/19 Range/Units 21:40 21:40 WBC 11.8 H (4.5-11.0) X10^3/uL RBC 4.71 (4.0-5.2) X10^6/uL Hgb 14.6 (12.0-16.0) g/dL Hct 41.3 (36-46) % MCV 87.7 (80-100) fL MCH 30.9 (26-34) PG MCHC 35.3 (30-36) % RDW 13.4 (11.6-14.8) % Plt Count 366 (150-400) X10^3/uL Neut % (Auto) 66.1 (50-75) % Lymph % (Auto) 29.0 (25-40) % [place] % (Auto) 4.3 (3-14) % Eos % (Auto) 0.1 L (2-4) % Baso % (Auto) 0.5 (0-2) % Neut # (Auto) 7800 H (6399-6893) /uL Lymph # (Auto) 3400 (6166-0847) /uL [place] # (Auto) 500 (0-900) /uL Eos # (Auto) 0 (0-450) /uL Baso # (Auto) 100 (0-100) /uL Sodium 140 (137-145) mmol/L Potassium 3.6 (3.4-5.1) mmol/L Chloride 103 (98-107) mmol/L Carbon Dioxide 27 (22-32) mmol/L BUN 6 L (7-17) mg/dL Creatinine 0.50 L (0.52-1.04) mg/dL Estimated GFR > 60.0 (>60) mL/min BUN/Creatinine Ratio 12.0 (6-22) Glucose 105 H (70-100) mg/dL Calcium 9.5 (8.4-10.2) mg/dL Total Bilirubin 0.6 (0.2-1.3) mg/dL AST 25 (14-36) IU/L ALT 37 (9-52) IU/L Alkaline Phosphatase 65 (38-126) U/L Total Protein 8.4 H (6.3-8.2) g/dL Albumin 4.8 (3.5-5.0) g/dL Globulin 3.6 (1.7-4.1) g/dL Albumin/Globulin Ratio 1.3 (1.0-2.8) Lipase 77 (23-300) U/L Point of Care Testing Test Results Negative Urine Dip Bedside Urine Glucose Negative Bedside Urine Bilirubin - Negative Bedside Urine Ketone - Negative Urine Specific [place] 1.010 Bedside Urine Occult Blood - Negative Bedside Urine pH 6.5 Bedside Urine Protein - Negative Bedside Urine Urobilinogen - Negative Bedside Urine Nitrite - Negative Bedside Urine Leukocytes - Negative Esterase MDM Narrative Medical decision making narrative: Patient overall feeling much better. She is tolerating oral fluids. Of blood work is reassuring. Discussed with her oral rehydration technique and when to return to ED. Discharge Plan Departure Patient Disposition: Home Clinical Impression: Gastroenteritis Discharge Date/Time: 09/05/19 00:44 Instructions: DI for Viral Gastroenteritis -- Adult Activity Restrictions/Additional Instructions: 1) You have been diagnosed with gastroenteritis 2) What to do: Drink frequent but small amounts of fluids. I recommend Gatorade or a Gatorade-like product, as it has small amounts of sugar and salts that improve fluid retention. 3) Take medications as directed Zofran 4 mg every 8 hours if needed for nausea vomiting 4) Follow up with your primary care provider in 2-3 days 5) Return to ER if you should have any new or worsening symptoms such as, unable to hold down fluids despite use of anti-nausea medications and the small volume oral rehydration strategy. Prescriptions: New ondansetron 4 mg tablet,disintegrating 4 mg PO Q8H PRN (Reason: nausea and vomiting) Qty: 10 RF: 0 No Action cephalexin [Keflex] 500 mg capsule 500 mg PO BID Qty: 20 RF: 0
[2019-09-04] MEDS: ONDANSETRON 4 MG/2 ML INJ IV (23:06)
[2019-09-04] MEDS: SODIUM CHLORIDE 0.9% 1,000 ML 1000 ML IV (23:06)
[2019-09-04] MEDS: PANTOPRAZOLE 40 MG VIAL IV (23:06)
[2019-09-05] MEDS: ONDANSETRON 4 MG ODT PREPACK 1 BOTTLE MISC (00:33)
[2019-09-05 00:42] VITALS: BP 123/105; PULSE 73; RESP 16; O2SAT 98
== END 2019-09-05 00:44 | disposition home or self-care (01) ==
PROVIDERS: Emergency Provider Emergency Medicine
DX: K52.9 Noninfective gastroenteritis and colitis, unspecified (principal)
CPT/HCPCS: 36415; 80053; 81003; 81025; 83690; 85025; 96361; 96374; 96375; 99283; 99284; C9113; J2405

== ENCOUNTER 2020-03-20 22:36 | Emergency (ER) | payer OTHER, SELFPAY ==
[2020-03-20 22:59] VITALS: BMI 27.3
[2020-03-20 23:05] VITALS: BP 161/108; PULSE 80; RESP 20; TEMP 36.7; O2SAT 98
--- NOTE | 2020-03-20 23:13 | DI.RAD.S_ITS ---
PROCEDURE: XR HAND LT MIN 3V INDICATIONS: injury to Left hand, pain and swelling TECHNIQUE: A 3 views of the hand(s) acquired. COMPARISON: None. FINDINGS: Bones: No fractures or dislocations. Carpal bones are normally aligned. No suspicious bony lesions. Soft tissues: No suspicious soft tissue calcifications. IMPRESSION: No fracture or foreign body. Swelling over the dorsum of the hand appears present on the lateral view. No foreign body seen. Dictated by: Barrett Srivastava M.D. on 03/21/2020 at 8:24 Approved by: Barrett Srivastava M.D. on 03/21/2020 at 8:24
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
[2020-03-21 00:03] VITALS: BP 161/108; PULSE 76; O2SAT 100
[2020-03-21] MEDS: DOXYCYCLINE HYCLATE 100 MG TABLET PO (00:14)
== END 2020-03-21 00:15 | disposition home or self-care (01) ==
PROVIDERS: Emergency Provider Emergency Medicine; PCP General Practice
DX: S61.412A Laceration without foreign body of left hand, initial encounter (principal); S60.512A Abrasion of left hand, initial encounter; W19.XXXA Unspecified fall, initial encounter
CPT/HCPCS: 73130; 99283; 99284

== ENCOUNTER 2020-05-03 13:45 | Emergency (ER) | payer OTHER, SELFPAY ==
[2020-05-03 13:49] VITALS: BP 134/94; PULSE 88; RESP 16; TEMP 36; O2SAT 99; BMI 28.3
--- NOTE | 2020-05-03 15:06 | DI.US.S_ITS ---
PROCEDURE: US OB <= 14 WEEKS FETUS INDICATIONS: VAG BLEED OUTSIDE/PRIOR DATING DATA: Last menstrual period (LMP): Unknown LMP-based estimated date of delivery (AURA): Unknown. First dating scan (date and location): 05/03/20. Estimated date of delivery (AURA) from first dating scan: 12/20/20 TECHNIQUE: Real-time scanning was performed of the fetus and maternal pelvic organs, with image documentation. Endovaginal scanning was also performed to better visualize the fetus and maternal ovaries. COMPARISON: None. FINDINGS: Embryo: There is a crown-rump length measuring 6 weeks 3 days without heart beat. There is a deformed gestational sac. No yolk sac was identified. Measurement variability in dating: +/- 4 weeks by LMP, +/- 7 days by mean sac diameter (use before 6 weeks gestation if crown-rump length not able to be measured), +/- 5 days by crown-rump length (up to 8 weeks 6 days gestation), +/- 7 days by crown-rump length (up to 13 weeks 6 days gestation). Maternal organs: Ovaries unremarkable. Limited images through the kidneys demonstrate no hydronephrosis. IMPRESSION: 1. Very early intrauterine with crown-rump length without heart beat measuring 6 weeks 3 days. A gestational sac is deformed. This very likely represents a nonviable early first trimester intrauterine . However, there is a small instance of viable very early intrauterine pregnancies with a crown-rump length without heart beat. Therefore, consider following serial beta hCGs. Comment: Findings were discussed with PRO Russell, at the time of study dictation on 05/03/20 at 1642 hrs.. Dictated by: Ramesh Fang M.D. on 05/03/2020 at 16:32 Approved by: Ramesh Fang M.D. on 05/03/2020 at 16:45
[2020-05-03 15:31] LABS: Add Manual Diff / Slide Review NO; Basophils Absolute Auto 100 /uL (0-100); Basophils Percent Auto 0.8 % (0-2); Eosinophils Absolute Auto 200 /uL (0-450); Eosinophils Percent Auto 2.2 % (2-4); Hemoglobin 13.1 g/dL (12.0-16.0); Lymphocytes Absolute Auto 2900 /uL (1100-4500); Lymphocytes Percent Auto 39.1 % (25-40); Mean Corpuscular HGB Conc 33.7 % (30-36); Monocytes Absolute Auto 600 /uL (0-900); Monocytes Percent Auto 8.6 % (3-14); Neutrophils Absolute Auto 3600 /uL (1500-7000); Neutrophils Percent Auto 49.3 % (50-75); Platelet Count 344 X10^3/uL (150-400); Red Blood Cell Count 4.23 X10^6/uL (4.0-5.2); Red Cell Distribution Width 13.3 % (11.6-14.8); White Blood Cell Count 7.3 X10^3/uL (4.5-11.0)
[2020-05-03 15:44] LABS: Alanine Aminotransferase 28 IU/L (<35); Albumin 4.2 g/dL (3.5-5.0); Albumin Globulin Ratio 1.3 (1.0-2.8); Alkaline Phosphatase 52 U/L (38-126); Aspartate Aminotransferase 36 IU/L (14-36); BUN Creatinine Ratio 10.6 (6-22); Bilirubin Total 0.4 mg/dL (0.2-1.3); Blood Urea Nitrogen 5 mg/dL (7-17); Calcium 9.4 mg/dL (8.4-10.2); Carbon Dioxide 25 mmol/L (22-32); Chloride 108 mmol/L (98-107); Estimated Glomerular Filt Rate > 60.0 mL/min (>60); Globulin 3.3 g/dL (1.7-4.1); Glucose 95 mg/dL (70-100); HEMOLYSIS < 15 (0-50); Potassium 4.5 mmol/L (3.4-5.1); Sodium 140 mmol/L (137-145); Total Protein 7.5 g/dL (6.3-8.2)
[2020-05-03 17:22] LABS: HCG Quantitative /Beta subunit 32267 mIU/mL
[2020-05-03 17:35] VITALS: BP 131/79; PULSE 94; RESP 17; O2SAT 98
--- NOTE | 2020-05-03 23:12 | ED_ITS ---
HPI - <Marlon WynnPRO Redman - Last Filed: 05/03/20 23:31> General Chief complaint: OB/Uterine Contractions Stated complaint: first trimester spotting today Time Seen by Provider: 05/03/20 14:44 Source: patient Mode of arrival: Family Vehicle Limitations: no limitations History of Present Illness HPI Narrative: This is a 24 year female, nonsmoker, who presents to ED with significant other with chief complain of vaginal spotting. She states her was confirmed at [facility] last week when she was treated for alcohol poisoning. LMP was 03/18/2020 and this is . Reports last period was very light which lasted for a day. Period in January was normal f or patient. Patient denies abdominal pain or urinary symptoms such as urgency, frequency, dysuria. Light vaginal spotting started today and describes as 1st day of of period which now has slowed down even more. Patient denies having intercourse prior to this. No ultrasound test has been done at this time. Patient denies chest pain, breathing difficulty, or dizziness. Date of Last Menstrual Period: 03/18/20 Patient : Yes Related Data Previous Rx's Medication Instructions Recorded cephalexin [Keflex] 500 mg PO BID #20 cap 10/12/18 ondansetron 4 mg PO Q8H PRN #10 tab 09/05/19 doxycycline hyclate 100 mg PO BID #20 tab 03/21/20 Allergies Allergy/AdvReac Type Severity Reaction Status Date / Time No Known Drug Allergies Allergy Verified 05/03/20 13:56 Review of Systems <PRO Powell - Last Filed: 05/03/20 23:31> Review of Systems Narrative: General: Denies fever, chills, fatigue, malaise, sweats. HEENT: Denies sinus pain, ear pain, sore throat, difficulty swallowing, dizziness. Respiratory: Denies dyspnea, cough, wheezing, hemoptysis, sputum. Cardiovascular: Denies chest pain, palpitations, orthopnea, edema. Gastrointestinal: Denies nausea, vomiting, abdominal pain, diarrhea, constipatio n, melena. : Denies dysuria, frequency, incontinence, hematuria, urinary retention. See HPI for further info. Musculoskeletal: Denies weakness, joint pain or bony pain. Skin: Denies rash, skin lesions, or other. Neurologic: Denies weakness, headache, numbness, change in speech, confusion, seizures, incoordination. Psychiatric: No concerning psychosocial issues. 12-point review of systems is negative except for those stated above. PMFSH - <PRO Powell - Last Filed: 05/03/20 23:31> Past Medical History Medical history: Reports no medical history Surgical history: Reports no surgical history DIE CUT OPERATOR history: Reports No DIE CUT OPERATOR History Date of Last Menstrual Period: 03/18/20 Patient : Yes Psychiatric history: Reports no psych history Family History Family history: Reports no significant family history Exam <PRO Powell - Last Filed: 05/03/20 23:31> Narrative Exam Narrative: General appearance: well developed, well nourished, in no acute distress. Head: normocephalic, atraumatic, no scalp lesions, non-tender. ENT: Hearing grossly intact. Nose without bleeding, purulent discharge. Mucous membrane moist, no mucosal lesion. Airway patent. Neck/Thyroid: neck supple, full range of motion, no visible masses or meningeal signs. No JVD, non-tender without lymphadenopathy. Skin: no suspicious rashes, lesions over visible areas. Warm and dry and appropriate color for ethnicity. Heart: no clubbing, no cyanosis, no edema. S1 and S2 normal. RRR w/o murmurs, clicks, or bruits. Lungs: Breathing even and unlabored. No stridor. No accessory muscles used. Able to speak in full sentences. Chest: normal shape and expansion. Abdomen: non-obese, non-distended. Nontender to palpate. Neurologic: alert and oriented. Cognitive exam, HOG KILLER and PNS grossly intact on informal exam. Psych: good eye contact, normal affect. Initial Vital Signs Initial Vital Signs: Vital Signs Temperature 96.8 F L 05/03/20 13:49 Pulse Rate 88 05/03/20 13:49 Respiratory Rate 16 05/03/20 13:49 Blood Pressure 134/94 H 05/03/20 13:49 Pulse Oximetry 99 05/03/20 13:49 OB/External & Speculum: deferred <Juanito Mitchell DO - Last Filed: 05/09/20 07:24> Initial Vital Signs Initial Vital Signs: Vital Signs Temperature 96.8 F L 05/03/20 13:49 Pulse Rate 88 05/03/20 13:49 Respiratory Rate 16 05/03/20 13:49 Blood Pressure 134/94 H 05/03/20 13:49 Pulse Oximetry 99 05/03/20 13:49 Scores <CHRISTO PowellP - Last Filed: 05/03/20 23:31> GCS [place] coma scale eye opening: Spontaneous Briana coma scale verbal response: Orientated Briana coma scale motor response: Obey commands Briana coma scale total score: 15 Course <Marlon Menchaca W[employer]ING SYSTEMS AND EQUIPMENT REPAIRER - Last Filed: 05/03/20 23:31> Orders Ordered: ED Orders 05/03/20 15:06 US OB <= 14 weeks fetus Stat 05/03/20 15:20 ABO RH Type Stat Complete Blood Count AUTO DIFF Stat Comprehensive Metabolic Panel Stat HCG Quantitative /Beta subunit Stat Vital Signs Vital signs: Vital Signs - 8 hr 05/03/20 17:35 Pulse Rate 94 H Respiratory Rate 17 Blood Pressure 131/79 Pulse Oximetry 98 <Juanito Mitchell DO - Last Filed: 05/09/20 07:24> Orders Ordered: ED Orders 05/03/20 15:06 US OB <= 14 weeks fetus Stat 05/03/20 15:20 ABO RH Type Stat Complete Blood Count AUTO DIFF Stat Comprehensive Metabolic Panel Stat HCG Quantitative /Beta subunit Stat Vital Signs Vital signs: Vital Signs - 8 hr 05/03/20 17:35 Pulse Rate 94 H Respiratory Rate 17 Blood Pressure 131/79 Pulse Oximetry 98 MDM - OB/Uterine Contractions <Marlon Bernarda W[employer] SYSTEM[employer] AND EQUIPMENT REPAIRER - Last Filed: 05/03/20 23:31> Differential Diagnosis Differential diagnosis: Likely other (Threatened miscarriage, ectopic , miscarriage) Medical Records Attestation: I reviewed the patient's medical records. Lab Data Attestation: I reviewed the patient's lab results. Result diagrams: 05/03/20 15:20 05/03/20 15:20 Labs: Lab Results 05/03/20 05/03/20 05/03/20 Range/Units 15:20 15:20 15:20 WBC 7.3 (4.5-11.0) X10^3/uL RBC 4.23 (4.0-5.2) X10^6/uL Hgb 13.1 (12.0-16.0) g/dL Hct 39.0 (36-46) % MCV 92.0 (80-100) fL MCH 31.0 (26-34) PG MCHC 33.7 (30-36) % RDW 13.3 (11.6-14.8) % Plt Count 344 (150-400) X10^3/uL Neut % (Auto) 49.3 L (50-75) % Lymph % (Auto) 39.1 (25-40) % Schleicher % (Auto) 8.6 (3-14) % Eos % (Auto) 2.2 (2-4) % Baso % (Auto) 0.8 (0-2) % Neut # (Auto) 3600 (2221-1014) /uL Lymph # (Auto) 2900 (7990-0951) /uL Schleicher # (Auto) 600 (0-900) /uL Eos # (Auto) 200 (0-450) /uL Baso # (Auto) 100 (0-100) /uL Sodium 140 (137-145) mmol/L Potassium 4.5 (3.4-5.1) mmol/L Chloride 108 H (98-107) mmol/L Carbon Dioxide 25 (22-32) mmol/L BUN 5 L (7-17) mg/dL Creatinine 0.47 L (0.52-1.04) mg/dL Estimated GFR > 60.0 (>60) mL/min BUN/Creatinine Ratio 10.6 (6-22) Glucose 95 (70-100) mg/dL Calcium 9.4 (8.4-10.2) mg/dL Total Bilirubin 0.4 (0.2-1.3) mg/dL AST 36 (14-36) IU/L ALT 28 (<35) IU/L Alkaline Phosphatase 52 (38-126) U/L Total Protein 7.5 (6.3-8.2) g/dL Albumin 4.2 (3.5-5.0) g/dL Globulin 3.3 (1.7-4.1) g/dL Albumin/Globulin Ratio 1.3 (1.0-2.8) HCG, Quant 03416 mIU/mL Blood Type O Positive Point of Care Testing Test Results Positive Urine Dip Bedside Urine Glucose Negative Bedside Urine Bilirubin - Negative Bedside Urine Ketone - Negative Urine Specific [place] 1.010 Bedside Urine Occult Blood - Negative Bedside Urine pH 6.0 Bedside Urine Protein - Negative Bedside Urine Urobilinogen - Negative Bedside Urine Nitrite - Negative Bedside Urine Leukocytes - Negative Esterase Imaging Data US - OB: Radiologist's Impression: [address] [address] Ultrasound Report Signed Patient: Mehdi Cavanaugh#: [id number] : 1995Acct:[id number] Age/Sex: 24 / FDate of Service: 05/03/20 Loc: ED Accession Number: [id number] Procedure: US OB <= 14 weeks fetus Ordering Provider: Marlon Menchaca PROCEDURE: US OB <= 14 WEEKS FETUS INDICATIONS: VAG BLEED OUTSIDE/PRIOR DATING DATA: Last menstrual period (LMP): Unknown LMP-based estimated date of delivery (AURA): Unknown. First dating scan (date and location): 05/03/20. Estimated date of delivery (AURA) from first dating scan: 12/20/20 TECHNIQUE: Real-time scanning was performed of the fetus and maternal pelvic organs, with image documentation. Endovaginal scanning was also performed to better visualize the fetus and maternal ovaries. COMPARISON: None. FINDINGS: Embryo: There is a crown-rump length measuring 6 weeks 3 days without heart beat. There is a deformed gestational sac. No yolk sac was identified. Measurement variability in dating: +/- 4 weeks by LMP, +/- 7 days by mean sac diameter (use before 6 weeks gestation if crown-rump length not able to be measured), +/- 5 days by crown-rump length (up to 8 weeks 6 days gestation), +/- 7 days by crown-rump length (up to 13 weeks 6 days gestation). Maternal organs: Ovaries unremarkable. Limited images through the kidneys demonstrate no hydronephrosis. IMPRESSION: 1. Very early intrauterine with crown-rump length without heart beat measuring 6 weeks 3 days. A gestational sac is deformed. This very likely represents a nonviable early first trimester intrauterine . However, there is a small instance of viable very early intrauterine pregnancies with a crown-rump length without heart beat. Therefore, consider following serial beta hCGs. Comment: Findings were discussed with PRO Powell, at the time of study dictation on 05/03/20 at 1642 hrs.. Dictated by: Ramesh Fang M.D. on 05/03/2020 at 16:32 Approved by: Ramesh Fang M.D. 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 Stable H&H. Unremarkable coag and chemistry test results. Urine hCG was positive. No signs urinary tract infection. Quantitative hcg today is 32,267. OB <14 weeks shows IUP with crown rump length measuring 6 weeks and 3 days without heart beat measurement. He was noted a deformed gestational sac likely presenting a nonviable early first-trimester IUP. Dr. Fang (Radiologist) called to inform the above. I discussed findings with patient and significant other at bedside and advised to follow up with primary care physician to have quantitative hCG trend monitor whether to verify ultrasound findings with the patient is having miscarriage. All questions were answered and copy of ultrasound test was provided for patient to follow up with primary care physician. Patient advised to take [id number] Tylenol as needed for discomfort. Return precautions were discussed and patient verbalized understanding in agreement with treatment plan after no further questions expressed. Findings were discussed with patient and patient advised to follow-up with primary care physician <Juanito Mitchell DO - Last Filed: 05/09/20 07:24> Lab Data Labs: Lab Results 05/03/20 05/03/20 05/03/20 Range/Units 15:20 15:20 15:20 WBC 7.3 (4.5-11.0) X10^3/uL RBC 4.23 (4.0-5.2) X10^6/uL Hgb 13.1 (12.0-16.0) g/dL Hct 39.0 (36-46) % MCV 92.0 (80-100) fL MCH 31.0 (26-34) PG MCHC 33.7 (30-36) % RDW 13.3 (11.6-14.8) % Plt Count 344 (150-400) X10^3/uL Neut % (Auto) 49.3 L (50-75) % Lymph % (Auto) 39.1 (25-40) % Schleicher % (Auto) 8.6 (3-14) % Eos % (Auto) 2.2 (2-4) % Baso % (Auto) 0.8 (0-2) % Neut # (Auto) 3600 (7567-5253) /uL Lymph # (Auto) 2900 (5565-2484) /uL Schleicher # (Auto) 600 (0-900) /uL Eos # (Auto) 200 (0-450) /uL Baso # (Auto) 100 (0-100) /uL Sodium 140 (137-145) mmol/L Potassium 4.5 (3.4-5.1) mmol/L Chloride 108 H (98-107) mmol/L Carbon Dioxide 25 (22-32) mmol/L BUN 5 L (7-17) mg/dL Creatinine 0.47 L (0.52-1.04) mg/dL Estimated GFR > 60.0 (>60) mL/min BUN/Creatinine Ratio 10.6 (6-22) Glucose 95 (70-100) mg/dL Calcium 9.4 (8.4-10.2) mg/dL Total Bilirubin 0.4 (0.2-1.3) mg/dL AST 36 (14-36) IU/L ALT 28 (<35) IU/L Alkaline Phosphatase 52 (38-126) U/L Total Protein 7.5 (6.3-8.2) g/dL Albumin 4.2 (3.5-5.0) g/dL Globulin 3.3 (1.7-4.1) g/dL Albumin/Globulin Ratio 1.3 (1.0-2.8) HCG, Quant 85540 mIU/mL Blood Type O Positive Point of Care Testing Test Results Positive Urine Dip Bedside Urine Glucose Negative Bedside Urine Bilirubin - Negative Bedside Urine Ketone - Negative Urine Specific [place] 1.010 Bedside Urine Occult Blood - Negative Bedside Urine pH 6.0 Bedside Urine Protein - Negative Bedside Urine Urobilinogen - Negative Bedside Urine Nitrite - Negative Bedside Urine Leukocytes - Negative Esterase Discharge Plan Departure Patient Disposition: Home Clinical Impression: Miscarriage, threatened, early Discharge Date/Time: 05/03/20 17:36 Instructions: DI for Threatened Activity Restrictions/Additional Instructions: You have been diagnosed with [threatened . Bed a HCG is 32,267 today. Early ultrasound test shows very early IUP without heart beat measuring 6 wks 3 days with deformed gestational sac. It is important to follow-up in 2-3 days to recheck better a HCG to call relate this.]. What to do: *Take your medications as directed. You can take [id number] Tylenol for discomfort. *Follow up with your primary care provider in 2-3 days, call for an appointment. Let them know you were seen in the ED and that we asked you to be seen in follow up. *Return to ED if you have any new, worsening, or concerning symptoms, such as [chest pain, breathing difficulty, unable to tolerate fluids, fever, increasing pain, heavy vaginal bleeding that you need to change pad every hour for next 2-3 hours, or any acute concerns]. Prescriptions: No Action cephalexin [Keflex] 500 mg capsule 500 mg PO BID Qty: 20 RF: 0 ondansetron 4 mg tablet,disintegrating 4 mg PO Q8H PRN (Reason: nausea and vomiting) Qty: 10 RF: 0 doxycycline hyclate 100 mg tablet 100 mg PO BID Qty: 20 RF: 0 Referrals: [facility] [place] [Outside] Jovany Kirkpatrick MD [Primary Care Provider] - <Juanito Mitchell, - Last Filed: 05/09/20 07:24> Cosign ED Attending Cosignature Attestation: Dr Mitchell Co-Sign Statement: I was available for consultation during this patient's emergency department visit. This chart is signed by myself for administrative purposes only. I did not have direct contact with this patient during this visit. They were seen ind ependently by the APC.
== END 2020-05-03 17:36 | disposition home or self-care (01) ==
PROVIDERS: Emergency Provider Nurse Practitioner Family; PCP General Practice
DX: O20.0 Threatened abortion (principal)
CPT/HCPCS: 36415; 76801; 80053; 81003; 81025; 84702; 85025; 86900; 86901; 99282; 99284

== ENCOUNTER 2020-07-19 20:07 | Emergency (ER) | payer OTHER, SELFPAY ==
[2020-07-19 20:17] VITALS: BP 145/78; PULSE 95; RESP 16; TEMP 37.2; O2SAT 99; BMI 29.2
--- NOTE | 2020-07-19 20:43 | DI.US.S_ITS ---
PROCEDURE: US OB <= 14 WEEKS FETUS INDICATIONS: BLEEDING OUTSIDE/PRIOR DATING DATA: Last menstrual period (LMP): Unknown . LMP-based estimated date of delivery (AURA): Not applicable . First dating scan (date and location): 07/19/2020 . Estimated date of delivery (AURA) from first dating scan: [place] at 18-21 . TECHNIQUE: Real-time scanning was performed of the fetus and maternal pelvic organs, with image documentation. Endovaginal scanning was also performed to better visualize the fetus and maternal ovaries. COMPARISON: [facility], OB <= 14 WEEKS FETUS, 05/03/2020, 15:33. FINDINGS: Embryo: An anechoic focus within the endometrial canal is present measuring 16 mm, corresponding to a 6 week 3 day gestation. Measurement variability in dating: +/- 4 weeks by LMP, +/- 7 days by mean sac diameter (use before 6 weeks gestation if crown-rump length not able to be measured), +/- 5 days by crown-rump length (up to 8 weeks 6 days gestation), +/- 7 days by crown-rump length (up to 13 weeks 6 days gestation). 16 mm fibroid adjacent to the gestational sac. Maternal organs: Ovaries within normal limits . Limited images through the kidneys demonstrate no hydronephrosis. IMPRESSION: 1. Findings consistent with a 6 week 3 day gestation. Routine clinical and sonographic follow-up recommended to document viability. Dictated by: Krystle Caban M.D. on 07/19/2020 at 21:54 Approved by: Krystle Caban M.D. on 07/19/2020 at 21:56
--- NOTE | 2020-07-19 20:52 | ED.PREGNANCY ---
HPI - <PURA Aguilera-BC - Last Filed: 07/19/20 21:11> General Chief complaint: Vaginal Bleeding Stated complaint: Thinks she is having a miscarriage Time Seen by Provider: 07/19/20 20:28 Source: patient Mode of arrival: Ambulatory Limitations: no limitations History of Present Illness HPI Narrative: The patient is a 25-year-old female nonsmoker with history of miscarriage who presents with a chief complaint of vaginal bleeding during early . She states that she had a miscarriage a few months ago, which resulted in a D&C at the very end of April, early May. She has not had a normal menstrual cycle since. She states that she took a per and again see urine test on July 05 because it was her birthday and in case she wanted to drink. She had a positive urine test at that point time. She noted today that she ?felt weird while cooking dinner and went to go to the bathroom, took down her pants and noticed a spot of bright red blood in her underwear. She denies any cramping, vaginal discharge, dysuria urgency or frequency. She denies any abdominal pain, lightheadedness or dizziness at this point time. She does not know her blood type. The patient presents with her fiance. Related Data Previous Rx's Medication Instructions Recorded cephalexin [Keflex] 500 mg PO BID #20 cap 10/12/18 ondansetron 4 mg PO Q8H PRN #10 tab 09/05/19 doxycycline hyclate 100 mg PO BID #20 tab 03/21/20 Allergies Allergy/AdvReac Type Severity Reaction Status Date / Time No Known Drug Allergies Allergy Verified 07/19/20 20:17 Review of Systems <TERRANCE Aguilera - Last Filed: 07/19/20 21:11> Review of Systems Narrative: GENERAL: Denies chills, fatigue, malaise, fever, sweats. HEENT: Denies sinus pain, ear pain, sore throat, difficulty swallowing, dizziness. RESPIRATORY: Denies dyspnea, cough, wheezing, hemoptysis, sputum. CARDIOVASCULAR: Denies chest pain, palpitations, orthopnea, edema, GASTROINTESTINAL: Denies nausea, vomiting, abdominal pain, diarrhea, constipation, melena. : See HPI MUSCULOSKELETAL: denies weakness, joint pain, or bony pain SKIN: Denies rash, skin lesions, or other NEUROLOGIC: Denies weakness, headache, numbness, change in speech, confusion, seizures, incoordination. PSYCHIATRIC: No concerning psychosocial issues. 12 point review of systems is negative except for those stated above PMFSH - <PURA Aguilera-BC - Last Filed: 07/19/20 21:11> Past Medical History Medical history: Reports no medical history Surgical history: Reports no surgical history Psychiatric history: Reports no psych history Family History Family history: Reports no significant family history Exam <REBECA AguileraP-BC - Last Filed: 07/19/20 21:11> Narrative Exam Narrative: GENERAL: This is a well-nourished, well-developed patient, in appears teary and anxious HEAD: Atraumatic. Normocephalic. No temporal or scalp tenderness. EYES: Pupils equal round and reactive. Extraocular motions intact. No scleral icterus. No injection or drainage. ENT: Nose without bleeding, purulent drainage or septal hematoma. Throat without erythema, tonsillar hypertrophy or exudate. Uvula midline. Airway patent. NECK: Trachea midline. No JVD or lymphadenopathy. Supple, nontender, no meningeal signs. CARDIOVASCULAR: Regular rate and rhythm RESPIRATORY: Clear to auscultation. Breath sounds equal bilaterally. No wheezes, rales, or rhonchi. No cough. No increased respiratory effort. No accessory muscle use. GASTROINTESTINAL: Abdomen soft, non-tender, nondistended. No hepato-splenomegaly, or palpable masses. No guarding. Active bowel sounds all 4 quadrants EXTREMITIES: No clubbing, cyanosis, or edema. No joint tenderness, effusion, or edema noted. BACK: Nontender without deformity or crepitance. No flank tenderness. NEURO: AOx3. SKIN: No rash or erythema on visible skin Initial Vital Signs Initial Vital Signs: Vital Signs Temperature 98.9 F 07/19/20 20:17 Pulse Rate 95 H 07/19/20 20:17 Respiratory Rate 16 07/19/20 20:17 Blood Pressure 145/78 H 07/19/20 20:17 Pulse Oximetry 99 07/19/20 20:17 <Joni Smart MD - Last Filed: 07/20/20 00:04> Initial Vital Signs Initial Vital Signs: Vital Signs Temperature 98.9 F 07/19/20 20:17 Pulse Rate 95 H 07/19/20 20:17 Respiratory Rate 16 07/19/20 20:17 Blood Pressure 145/78 H 07/19/20 20:17 Pulse Oximetry 99 07/19/20 20:17 Scores <TERRANCE Aguilera - Last Filed: 07/19/20 21:11> GCS Briana coma scale eye opening: Spontaneous [place] coma scale verbal response: Orientated [place] coma scale motor response: Obey commands Briana coma scale total score: 15 Course <TERRANCE gAuilera - Last Filed: 07/19/20 21:11> Orders Ordered: ED Orders 07/19/20 20:43 US OB <= 14 weeks fetus Stat 07/19/20 20:50 ABO RH Type Stat Complete Blood Count AUTO DIFF Stat Comprehensive Metabolic Panel Stat HCG Quantitative /Beta subunit Stat Urine Microscopic Stat Vital Signs Vital signs: Vital Signs - 8 hr 07/19/20 20:17 07/19/20 22:52 Temperature 98.9 F Pulse Rate 95 H 66 Respiratory Rate 16 16 Blood Pressure 145/78 H 139/75 Pulse Oximetry 99 99 <Joni Smart MD - Last Filed: 07/20/20 00:04> Orders Ordered: ED Orders 07/19/20 20:43 US OB <= 14 weeks fetus Stat 07/19/20 20:50 ABO RH Type Stat Complete Blood Count AUTO DIFF Stat Comprehensive Metabolic Panel Stat HCG Quantitative /Beta subunit Stat Urine Microscopic Stat Reevaluation(s) Reevaluation #1: Spoke with patient and fiancee results of ultrasound that demise/threatened miscarriage possible. She does have follow-up with OBGYN. She understands that she needs to get repeat beta quantitative hCG. She has had miscarriage before. Vital Signs Vital signs: Vital Signs - 8 hr 07/19/20 20:17 07/19/20 22:52 Temperature 98.9 F Pulse Rate 95 H 66 Respiratory Rate 16 16 Blood Pressure 145/78 H 139/75 Pulse Oximetry 99 99 MDM - OB/Uterine Contractions <TERRANCE Aguilera - Last Filed: 07/19/20 21:11> Lab Data Result diagrams: 07/19/20 20:50 07/19/20 20:50 Labs: Lab Results 08/26/20 08/26/20 08/26/20 Range/Units 20:50 20:50 20:50 WBC 9.2 (4.5-11.0) X10^3/uL RBC 4.52 (4.0-5.2) X10^6/uL Hgb 13.6 (12.0-16.0) g/dL Hct 39.3 (36-46) % MCV 86.9 (80-100) fL MCH 30.1 (26-34) PG MCHC 34.6 (30-36) % RDW 13.0 (11.6-14.8) % Plt Count 292 (150-400) X10^3/uL Neut % (Auto) 64.3 (50-75) % Lymph % (Auto) 28.4 (25-40) % Gregory % (Auto) 6.1 (3-14) % Eos % (Auto) 0.8 L (2-4) % Baso % (Auto) 0.4 (0-2) % Neut # (Auto) 5900 (9148-9342) /uL Lymph # (Auto) 2600 (4465-6501) /uL Gregory # (Auto) 600 (0-900) /uL Eos # (Auto) 100 (0-450) /uL Baso # (Auto) 0 (0-100) /uL Sodium 137 (137-145) mmol/L Potassium 4.0 (3.4-5.1) mmol/L Chloride 104 (98-107) mmol/L Carbon Dioxide 26 (22-32) mmol/L BUN 7 (7-17) mg/dL Creatinine 0.55 (0.52-1.04) mg/dL Estimated GFR > 60.0 (>60) mL/min BUN/Creatinine Ratio 12.7 (6-22) Glucose 92 (70-100) mg/dL Calcium 9.0 (8.4-10.2) mg/dL Total Bilirubin 0.7 (0.2-1.3) mg/dL AST 38 H (14-36) IU/L ALT 38 H (<35) IU/L Alkaline Phosphatase 51 (38-126) U/L Total Protein 7.7 (6.3-8.2) g/dL Albumin 4.4 (3.5-5.0) g/dL Globulin 3.3 (1.7-4.1) g/dL Albumin/Globulin Ratio 1.3 (1.0-2.8) HCG, Quant 36366 mIU/mL Urine RBC (0-5/HPF) Urine WBC (0-5/HPF) Ur Squamous Epith Cells (0-5/HPF) Urine Bacteria (None) Ur Culture Indicated? Blood Type O Positive 07/19/20 Range/Units 20:50 WBC (4.5-11.0) X10^3/uL RBC (4.0-5.2) X10^6/uL Hgb (12.0-16.0) g/dL Hct (36-46) % MCV (80-100) fL MCH (26-34) PG MCHC (30-36) % RDW (11.6-14.8) % Plt Count (150-400) X10^3/uL Neut % (Auto) (50-75) % Lymph % (Auto) (25-40) % Gregory % (Auto) (3-14) % Eos % (Auto) (2-4) % Baso % (Auto) (0-2) % Neut # (Auto) (6397-0731) /uL Lymph # (Auto) (5142-6987) /uL Gregory # (Auto) (0-900) /uL Eos # (Auto) (0-450) /uL Baso # (Auto) (0-100) /uL Sodium (137-145) mmol/L Potassium (3.4-5.1) mmol/L Chloride (98-107) mmol/L Carbon Dioxide (22-32) mmol/L BUN (7-17) mg/dL Creatinine (0.52-1.04) mg/dL Estimated GFR (>60) mL/min BUN/Creatinine Ratio (6-22) Glucose (70-100) mg/dL Calcium (8.4-10.2) mg/dL Total Bilirubin (0.2-1.3) mg/dL AST (14-36) IU/L ALT (<35) IU/L Alkaline Phosphatase (38-126) U/L Total Protein (6.3-8.2) g/dL Albumin (3.5-5.0) g/dL Globulin (1.7-4.1) g/dL Albumin/Globulin Ratio (1.0-2.8) HCG, Quant mIU/mL Urine RBC 0-1/hpf (0-5/HPF) Urine WBC None seen (0-5/HPF) Ur Squamous Epith Cells 1-5 /hpf (0-5/HPF) Urine Bacteria Few (2-10) H (None) Ur Culture Indicated? Cult not indicated Blood Type Point of Care Testing Test Results Positive Urine Dip Bedside Urine Glucose Negative Bedside Urine Bilirubin - Negative Bedside Urine Ketone - Negative Urine Specific Gaston 1.010 Bedside Urine Occult Blood +++ Bedside Urine pH 6.5 Bedside Urine Protein - Negative Bedside Urine Urobilinogen - Negative Bedside Urine Nitrite - Negative Bedside Urine Leukocytes - Negative Esterase MDM Narrative Medical decision making narrative: The patient is a 25-year-old female who presents with a chief complaint of I think I am having a miscarriage.She had a positive urine test earlier this month, most recently had a D&C after miscarriage at the end of April/early May and has not had a normal menstrual cycle. Basic lab work was obtained including a serum quant beta hCG. Given the possibility of retained products, an ultrasound was ordered. The patient was signed out to Dr. Smart at 9:00 p.m. with all lab work and imaging pending. <Joni Smart MD - Last Filed: 07/20/20 00:04> Differential Diagnosis Differential diagnosis: Likely other (Threatened miscarriage) Lab Data Attestation: I reviewed the patient's lab results. Labs: Lab Results 07/19/20 07/19/20 07/19/20 Range/Units 20:50 20:50 20:50 WBC 9.2 (4.5-11.0) X10^3/uL RBC 4.52 (4.0-5.2) X10^6/uL Hgb 13.6 (12.0-16.0) g/dL Hct 39.3 (36-46) % MCV 86.9 (80-100) fL MCH 30.1 (26-34) PG MCHC 34.6 (30-36) % RDW 13.0 (11.6-14.8) % Plt Count 292 (150-400) X10^3/uL Neut % (Auto) 64.3 (50-75) % Lymph % (Auto) 28.4 (25-40) % Gregory % (Auto) 6.1 (3-14) % Eos % (Auto) 0.8 L (2-4) % Baso % (Auto) 0.4 (0-2) % Neut # (Auto) 5900 (7084-4515) /uL Lymph # (Auto) 2600 (5822-1479) /uL Gregory # (Auto) 600 (0-900) /uL Eos # (Auto) 100 (0-450) /uL Baso # (Auto) 0 (0-100) /uL Sodium 137 (137-145) mmol/L Potassium 4.0 (3.4-5.1) mmol/L Chloride 104 (98-107) mmol/L Carbon Dioxide 26 (22-32) mmol/L BUN 7 (7-17) mg/dL Creatinine 0.55 (0.52-1.04) mg/dL Estimated GFR > 60.0 (>60) mL/min BUN/Creatinine Ratio 12.7 (6-22) Glucose 92 (70-100) mg/dL Calcium 9.0 (8.4-10.2) mg/dL Total Bilirubin 0.7 (0.2-1.3) mg/dL AST 38 H (14-36) IU/L ALT 38 H (<35) IU/L Alkaline Phosphatase 51 (38-126) U/L Total Protein 7.7 (6.3-8.2) g/dL Albumin 4.4 (3.5-5.0) g/dL Globulin 3.3 (1.7-4.1) g/dL Albumin/Globulin Ratio 1.3 (1.0-2.8) HCG, Quant 10828 mIU/mL Urine RBC (0-5/HPF) Urine WBC (0-5/HPF) Ur Squamous Epith Cells (0-5/HPF) Urine Bacteria (None) Ur Culture Indicated? Blood Type O Positive 07/19/20 Range/Units 20:50 WBC (4.5-11.0) X10^3/uL RBC (4.0-5.2) X10^6/uL Hgb (12.0-16.0) g/dL Hct (36-46) % MCV (80-100) fL MCH (26-34) PG MCHC (30-36) % RDW (11.6-14.8) % Plt Count (150-400) X10^3/uL Neut % (Auto) (50-75) % Lymph % (Auto) (25-40) % Gregory % (Auto) (3-14) % Eos % (Auto) (2-4) % Baso % (Auto) (0-2) % Neut # (Auto) (1451-0247) /uL Lymph # (Auto) (6377-4544) /uL Gregory # (Auto) (0-900) /uL Eos # (Auto) (0-450) /uL Baso # (Auto) (0-100) /uL Sodium (137-145) mmol/L Potassium (3.4-5.1) mmol/L Chloride (98-107) mmol/L Carbon Dioxide (22-32) mmol/L BUN (7-17) mg/dL Creatinine (0.52-1.04) mg/dL Estimated GFR (>60) mL/min BUN/Creatinine Ratio (6-22) Glucose (70-100) mg/dL Calcium (8.4-10.2) mg/dL Total Bilirubin (0.2-1.3) mg/dL AST (14-36) IU/L ALT (<35) IU/L Alkaline Phosphatase (38-126) U/L Total Protein (6.3-8.2) g/dL Albumin (3.5-5.0) g/dL Globulin (1.7-4.1) g/dL Albumin/Globulin Ratio (1.0-2.8) HCG, Quant mIU/mL Urine RBC 0-1/hpf (0-5/HPF) Urine WBC None seen (0-5/HPF) Ur Squamous Epith Cells 1-5 /hpf (0-5/HPF) Urine Bacteria Few (2-10) H (None) Ur Culture Indicated? Cult not indicated Blood Type Point of Care Testing Test Results Positive Urine Dip Bedside Urine Glucose Negative Bedside Urine Bilirubin - Negative Bedside Urine Ketone - Negative Urine Specific Gaston 1.010 Bedside Urine Occult Blood +++ Bedside Urine pH 6.5 Bedside Urine Protein - Negative Bedside Urine Urobilinogen - Negative Bedside Urine Nitrite - Negative Bedside Urine Leukocytes - Negative Esterase Imaging Data US - OB: Radiologist's Impression: [address] [address] Ultrasound Report Signed Patient: Mehdi Cavanaugh#: [id number] : 1995Acct:[id number] Age/Sex: 25 / FDate of Service: 07/19/20 Loc: ED Accession Number: [id number] Procedure: OB <= 14 weeks fetus Ordering Provider: Terra Jenkins PROCEDURE: US OB <= 14 WEEKS FETUS INDICATIONS: BLEEDING OUTSIDE/PRIOR DATING DATA: Last menstrual period (LMP): Unknown . LMP-based estimated date of delivery (AURA): Not applicable . First dating scan (date and location): 07/19/2020 . Estimated date of delivery (AURA) from first dating scan: [place] at 18-21 . TECHNIQUE: Real-time scanning was performed of the fetus and maternal pelvic organs, with image documentation. Endovaginal scanning was also performed to better visualize the fetus and maternal ovaries. COMPARISON: [facility], OB <= 14 WEEKS FETUS, 05/03/2020, 15:33. FINDINGS: Embryo: An anechoic focus within the endometrial canal is present measuring 16 mm, corresponding to a 6 week 3 day gestation. Measurement variability in dating: +/- 4 weeks by LMP, +/- 7 days by mean sac diameter (use before 6 weeks gestation if crown-rump length not able to be measured), +/- 5 days by crown-rump length (up to 8 weeks 6 days gestation), +/- 7 days by crown-rump length (up to 13 weeks 6 days gestation). 16 mm fibroid adjacent to the gestational sac. Maternal organs: Ovaries within normal limits . Limited images through the kidneys demonstrate no hydronephrosis. IMPRESSION: 1. Findings consistent with a 6 week 3 day gestation. Routine clinical and sonographic follow-up recommended to document viability. Dictated by: Krystle Caban M.D. on 07/19/2020 at 21:54 Approved by: Krystle Caban M.D. on 07/19/2020 at 21:56 MDM Narrative Medical decision making narrative: Appropriate for discharge home. Patient does have over joint follow-up on the [employer] [facility]. Patient is already taking vitamins. Discharge Plan Departure Patient Disposition: Home Clinical Impression: Miscarriage, threatened, early Discharge Date/Time: 07/19/20 22:45 Instructions: DI for Threatened Activity Restrictions/Additional Instructions: Return immediately for severe increased bleeding or if any questions or concerns. See your doctor this week to have hormone levels redrawn this Friday for comparison to today's. Level today is 14,859. Quantitative hCG Prescriptions: No Action cephalexin [Keflex] 500 mg capsule 500 mg PO BID Qty: 20 RF: 0 ondansetron 4 mg tablet,disintegrating 4 mg PO Q8H PRN (Reason: nausea and vomiting) Qty: 10 RF: 0 doxycycline hyclate 100 mg tablet 100 mg PO BID Qty: 20 RF: 0 Referrals: Jovany Kirkpatrick MD [Primary Care Provider] -
[2020-07-19 20:57] LABS: WBC Urine None Seen (0-5/HPF)
[2020-07-19 21:01] LABS: Add Manual Diff / Slide Review NO; Basophils Absolute Auto 0 /uL (0-100); Basophils Percent Auto 0.4 % (0-2); Eosinophils Absolute Auto 100 /uL (0-450); Eosinophils Percent Auto 0.8 % (2-4); Hematocrit 39.3 % (36-46); Hemoglobin 13.6 g/dL (12.0-16.0); Lymphocytes Absolute Auto 2600 /uL (1100-4500); Lymphocytes Percent Auto 28.4 % (25-40); Mean Corpuscular HGB Conc 34.6 % (30-36); Mean Corpuscular Hemoglobin 30.1 PG (26-34); Mean Corpuscular Volume 86.9 fL (80-100); Monocytes Absolute Auto 600 /uL (0-900); Monocytes Percent Auto 6.1 % (3-14); Neutrophils Absolute Auto 5900 /uL (1500-7000); Neutrophils Percent Auto 64.3 % (50-75); Platelet Count 292 X10^3/uL (150-400); Red Blood Cell Count 4.52 X10^6/uL (4.0-5.2); White Blood Cell Count 9.2 X10^3/uL (4.5-11.0)
[2020-07-19 21:12] LABS: Alanine Aminotransferase 38 IU/L (<35); Albumin 4.4 g/dL (3.5-5.0); Albumin Globulin Ratio 1.3 (1.0-2.8); Alkaline Phosphatase 51 U/L (38-126); Aspartate Aminotransferase 38 IU/L (14-36); BUN Creatinine Ratio 12.7 (6-22); Bacteria Urine Few (2-10); Bilirubin Total 0.7 mg/dL (0.2-1.3); Blood Urea Nitrogen 7 mg/dL (7-17); Carbon Dioxide 26 mmol/L (22-32); Chloride 104 mmol/L (98-107); Culture Indicated Urine Cult Not Indicated; Estimated Glomerular Filt Rate > 60.0 mL/min (>60); Globulin 3.3 g/dL (1.7-4.1); Glucose 92 mg/dL (70-100); HEMOLYSIS < 15 (0-50); RBC Urine 0-1/HPF (0-5/HPF); Sodium 137 mmol/L (137-145); Squamous Epithelial Cell Urine 1-5 /HPF (0-5/HPF); Total Protein 7.7 g/dL (6.3-8.2)
[2020-07-19 21:54] LABS: HCG Quantitative /Beta subunit 14859 mIU/mL
[2020-07-19 22:52] VITALS: BP 139/75; PULSE 66; RESP 16; O2SAT 99
== END 2020-07-19 22:45 | disposition home or self-care (01) ==
PROVIDERS: Nurse Practitioner Family; Emergency Provider Emergency Medicine; PCP General Practice
DX: O20.0 Threatened abortion (principal); Z3A.01 Less than 8 weeks gestation of pregnancy
CPT/HCPCS: 36415; 76801; 76817; 80053; 81003; 81015; 81025; 84702; 85025; 86900; 86901; 99284

== ENCOUNTER → 2020-10-05 15:21 | Outpatient (CLI) | payer OTHER, SELFPAY ==
[2020-10-05 17:14] LABS: Free T4, Direct Thyroxine 0.95 ng/dL (0.78-2.19)
[2020-10-05 17:28] LABS: Thyroid Stimulating Hormone 1.51 uIU/mL (0.47-4.68)
[2020-10-08 11:10] LABS: Dilute Russell Viper Venom 38.4 sec (0.0-47.0); Lupus Reflex Interpretation Comment: (.); PTT-LA 30.6 sec (0.0-51.9)
[2020-10-19 14:57] LABS: Cardiolipin IgA Negative
== END ==
PROVIDERS: PCP Registered Nurse Diabetes Educator; Referring Provider Specialist; Visit Provider Specialist
DX: N96 Recurrent pregnancy loss (principal)
CPT/HCPCS: 36415; 81240; 81241; 81291; 83520; 84439; 84443; 85598; 85613; 86147

== ENCOUNTER → 2020-11-01 10:56 | Outpatient (CLI) | payer OTHER, SELFPAY ==
[2020-11-01 12:00] LABS: COVID19 -Nasal RAPID Negative (Negative)
== END ==
PROVIDERS: PCP Registered Nurse Diabetes Educator; Visit Provider Specialist
DX: Z03.818 Encounter for observation for suspected exposure to other biological agents ruled out (principal)
CPT/HCPCS: 87635

== ENCOUNTER 2020-11-02 06:32 | Day surgery (SDC) | payer OTHER, SELFPAY ==
[2020-10-30 15:13] VITALS: BMI 31.1
[2020-11-02] VITALS (27 sets, daily range): BP systolic 95–175; BP diastolic 43–103; PULSE 62–95; RESP 11–24; TEMP 36.3–37; O2SAT 92–100; BMI 31.1
--- NOTE | 2020-11-02 | DI.CT.S_ITS ---
PROCEDURE: CT HEAD/BRAIN WO CON INDICATIONS: non responsive post surgical procedure TECHNIQUE: Noncontrast 4.5 mm thick angled axial sections acquired from the foramen magnum to the vertex, with coronal and sagittal reformats. For radiation dose reduction, the following was used: automated exposure control, adjustment of mA and/or kV according to patient size. COMPARISON: None. FINDINGS: Image quality: Excellent. CSF spaces: Basal cisterns are patent. No extra-axial fluid collections. Ventricles are normal in size and shape. Brain: No midline shift. No intracranial masses or hemorrhage. Marks-white matter interface is normal. Skull and face: Calvarium and visualized facial bones are intact, without suspicious lesions. Sinuses: Visualized sinuses and mastoids are clear. IMPRESSION: Unremarkable head CT. No evidence acute stroke, hemorrhage, or mass. Dictated by: Ramesh Fang M.D. on 11/02/2020 at 9:27 Approved by: Ramesh Fang M.D. on 11/02/2020 at 9:27
--- NOTE | 2020-11-02 | PATH_ITS ---
[facility] Accession Number: [id number] . 01 Material submitted: . PART A: body - FIBROID PART B: endometrium - ENDOMETRIAL CURETTINGS . 01 Clinical history: . SDC . 02 Diagnosis: A. Fibroid: Histologic changes suggestive of poorly preserved intermediate trophoblasts and possible villous structures, suggestive of possible products of conception / placental site nodule, in the appropriate clinical context. Please correlate with clinical information. Small fragments of weakly proliferative endometrium / basalis endometrium; negative for glandular hyperplasia, cytologic atypia, or malignancy. Portions of myometrium, some with associated endometrium, consistent with submcusal leiomyoma; negative for cytologic atypia or malignancy. . . B. Endometrial Curettings: Portions of weakly proliferative endometrium with patchy regions of stromal breakdown; negative for glandular hyperplasia, cytologic atypia, or malignancy. Portions of endocervical tissue with metaplastic squamous mucosa; negative for glandular dysplasia or malignancy. Negative for squamous dysplasia or malignancy. [facility] 11/08/2020 1509 Local . 02 Electronically signed: . Dee Pop MD, Pathologist NPI- [id number] . 01 Gross description: . A. Specimen A is received in formalin, labeled fibroid and consists of multiple phillips-pink rubbery fragments of soft tissue measuring 3.0 x 3.0 x 2.0 cm in aggregate. The specimen is entirely submitted in cassettes A1-A2. B. Specimen B is received in formalin, labeled endometrial curettings and consists of multiple phillips-pink fragments of soft tissue and clotted blood, measuring 2.0 x 1.5 x 0.4 cm in aggregate. The specimen is filtered and entirely submitted in cassette B1. ([id number]) /[facility] 11/03/2020 1759 Local . 02 Pathologist provided ICD-10: D25.0 . 02 CPT . 335950, 125717 Performed at: 01 [facility] [address] [place] [address], [place], [place] [id number] MD Bin Rodriguez MD Phone: [phone] Performed at: [address] [id number] [place], [place] [id number] MD Mague Aceves MD Phone: [phone]
--- NOTE | 2020-11-02 07:23 | PM.PREOP ---
Pre-operative Note COVID-19 COVID-19 status: Negative Result date/Date tested (Pos, Neg/Pending): 11/01/20 Interval Note History & Physical reviewed/Exam performed by Physician: Yes Changes to H&P: No
[2020-11-02] MEDS: LACTATED RINGERS 1,000 ML 100 ML IV ×3 (07:28→12:10)
--- NOTE | 2020-11-02 08:10 | SUR.OPER ---
Lithotomy on padded OR bed, head on pillow, arms secured on padded arm boards at <90 degrees abduction. Legs secured in padded yellow fins stirrups.
--- NOTE | 2020-11-02 08:36 | PM.OP.1 ---
Operative Date/Time/Diagnoses Date of procedure: 11/02/20 Time of procedure: 08:37 Pre-op diagnosis: Submucous fibroid Post-op diagnosis: same Procedure & Clinicians Procedure: Hysteroscopy with resection of submucous fibroid Same procedure as scheduled: Yes Indications: Submucous fibroid on ultrasound Surgeon: Belen Little Click Yes if Unassisted: Yes Anesthesia Type: General Operative Notes Findings: Submucous fibroid. Closure Type: not applicable Specimen(s): other (Submucous fibroid and endometrial curettage) Estimated Blood Loss (mL): 20 Blood products transfused: none Procedure in detail: The patient was brought to the operating room where she underwent general anesthesia. She was placed in low stirrups She was prepped and draped in usual sterile fashion with pulsatile stockings in place and functional, warming in place. No antibiotics were indicated Her bladder was drained with in and out catheter. A single-tooth tenaculum was placed on the anterior lip of the cervix and the uterus dilated to #8 Hegar dilator. The hysteroscope was placed into the uterus with a sorbitol solution running and under constant suction. The resecting loop set at 80 W of cutting was used to resect the fibroid down to the level of the endometrium. A endometrial curettage was performed. The fibroid and the endometrial curettage was sent to pathology. The patient went to recovery room in good condition counts of instruments and sponges were correct. The sorbitol solution I=O approximately 2300 mL. Complications: none Post-operative Condition: stable Disposition: same day surgery Plan for aftercare: Home when awake and stable.
[2020-11-02] MEDS: NALOXONE 0.4 MG/ML VIAL IV (09:03)
--- NOTE | 2020-11-02 09:25 | PM.PNPO.1 ---
Subjective Subjective Date Patient Seen: 11/02/20 Time Patient Seen: 09:25 Interval history: Patient in the recovery room was initially doing well and when transferred from PACU to preop area all the sudden became unresponsive. Her vital signs remained stable. Blood sugar 86. She is breathing easily. Exam Vital Signs (past 8 hours): - 11/02/20 07:20 11/02/20 08:31 11/02/20 08:36 Temperature 98.6 F 98.0 F Pulse Rate 74 72 69 Respiratory Rate 16 11 L 12 Blood Pressure 112/69 111/68 111/68 Pulse Oximetry 99 92 92 11/02/20 08:41 11/02/20 08:47 Temperature 97.7 F Pulse Rate 90 91 H Respiratory Rate 16 20 Blood Pressure 128/76 134/80 Pulse Oximetry 100 100 Oxygen Delivery Method Room Air Narrative Exam Narrative: Lungs appear to be clear. Heart is regular rate, and rhythm. Abdomen is soft, with no distension. She has minimal vaginal bleeding. [facility] Medical History (Updated 11/02/20 @ 09:32 by Belen Little MD) Anxiety Closed left ankle fracture Depression Fibromyalgia Gastritis Numbness PTSD (post-traumatic stress disorder) Rheumatoid arthritis Sjogrens syndrome SLE (systemic lupus erythematosus) Ulnar neuropathy of both upper extremities Wrist pain Surgical History (Updated 10/30/20 @ 15:14 by Karne Leon RN) History of surgery (04/08/18) Hx of cholecystectomy Social History household members: significant other Smoking Status: Current every day smoker alcohol intake: current Assessment & Plan Post-op Assessment and plan (1) Unresponsive episode: Postoperative Procedures: Procedures Operation Date: 11/02/20 07:45 Actual Procedures Side Surgeon p Hysteroscopy - removal of fibroid Belen Little MD Postoperative status narrative: Patient became unresponsive. She was given Narcan. CT scan of head performed. Patient received more Narcan and now appears to be more responsive. Will monitor for responsiveness.
[2020-11-02] MEDS: NALOXONE 1 MG/ML SYRINGE 2 MG IV (09:28)
[2020-11-02 09:58] LABS: Add Manual Diff / Slide Review NO; Basophils Absolute Auto 100 /uL (0-100); Basophils Percent Auto 0.5 % (0-2); Eosinophils Absolute Auto 100 /uL (0-450); Hematocrit 39.6 % (36-46); Hemoglobin 13.5 g/dL (12.0-16.0); Lymphocytes Absolute Auto 2800 /uL (1100-4500); Lymphocytes Percent Auto 21.1 % (25-40); Mean Corpuscular HGB Conc 34.2 % (30-36); Mean Corpuscular Hemoglobin 30.1 PG (26-34); Mean Corpuscular Volume 88.1 fL (80-100); Monocytes Absolute Auto 300 /uL (0-900); Monocytes Percent Auto 2.3 % (3-14); Neutrophils Absolute Auto 10000 /uL (1500-7000); Neutrophils Percent Auto 75.1 % (50-75); Platelet Count 288 X10^3/uL (150-400); Red Blood Cell Count 4.49 X10^6/uL (4.0-5.2); Red Cell Distribution Width 12.7 % (11.6-14.8); White Blood Cell Count 13.4 X10^3/uL (4.5-11.0)
[2020-11-02 10:11] LABS: Alanine Aminotransferase 40 IU/L (<35); Albumin 4.2 g/dL (3.5-5.0); Albumin Globulin Ratio 1.1 (1.0-2.8); Alkaline Phosphatase 56 U/L (38-126); Aspartate Aminotransferase 49 IU/L (14-36); BUN Creatinine Ratio 16.7 (6-22); Bilirubin Total 0.4 mg/dL (0.2-1.3); Blood Urea Nitrogen 9 mg/dL (7-17); Calcium 9.1 mg/dL (8.4-10.2); Carbon Dioxide 24 mmol/L (22-32); Chloride 106 mmol/L (98-107); Estimated Glomerular Filt Rate > 60.0 mL/min (>60); Globulin 3.9 g/dL (1.7-4.1); Glucose 94 mg/dL (70-100); HEMOLYSIS 42 (0-50); Magnesium 1.9 mg/dL (1.6-2.3); Potassium 4.4 mmol/L (3.4-5.1); Sodium 136 mmol/L (137-145); Total Protein 8.1 g/dL (6.3-8.2)
[2020-11-02 10:41] LABS: Thyroid Stimulating Hormone 1.36 uIU/mL (0.47-4.68)
[2020-11-02] MEDS: ACETAMINOPHEN 325 MG TABLET 650 MG PO (10:41)
--- NOTE | 2020-11-02 11:14 | PM.PNPO.1 ---
Subjective Subjective Date Patient Seen: 11/02/20 Time Patient Seen: 10:25 Interval history: Patient is now responsive and oriented. Exam Vital Signs (past 8 hours): - 11/02/20 07:20 11/02/20 08:31 11/02/20 08:36 Temperature 98.6 F 98.0 F Pulse Rate 74 72 69 Respiratory Rate 16 11 L 12 Blood Pressure 112/69 111/68 111/68 Pulse Oximetry 99 92 92 11/02/20 08:41 11/02/20 08:47 11/02/20 08:50 Temperature 97.7 F 97.4 F L Pulse Rate 90 91 H 69 Respiratory Rate 16 20 12 Blood Pressure 128/76 134/80 130/83 Pulse Oximetry 100 100 98 11/02/20 08:58 11/02/20 09:00 11/02/20 09:03 Temperature Pulse Rate 76 76 75 Respiratory Rate 18 14 12 Blood Pressure 147/91 H 150/93 H 153/97 H Pulse Oximetry 100 100 98 11/02/20 09:07 11/02/20 09:10 11/02/20 09:15 Temperature 98.0 F Pulse Rate 95 H 88 76 Respiratory Rate 18 16 18 Blood Pressure 154/103 H 175/95 H 167/103 H Pulse Oximetry 100 100 100 11/02/20 09:23 11/02/20 09:32 11/02/20 09:37 Temperature Pulse Rate 70 71 71 Respiratory Rate 18 17 18 Blood Pressure 153/88 H 133/79 141/93 H Pulse Oximetry 100 100 100 11/02/20 09:47 11/02/20 09:52 11/02/20 09:57 Temperature Pulse Rate 76 74 74 Respiratory Rate 18 12 12 Blood Pressure 128/80 125/71 120/81 Pulse Oximetry 98 96 96 11/02/20 10:02 11/02/20 10:12 11/02/20 10:27 Temperature 98.1 F 97.4 F L Pulse Rate 70 73 72 Respiratory Rate 20 15 23 Blood Pressure 117/56 L 115/61 111/65 Pulse Oximetry 97 97 96 11/02/20 10:45 11/02/20 11:00 Temperature Pulse Rate 66 73 Respiratory Rate 19 24 Blood Pressure 116/46 L 101/80 Pulse Oximetry 96 97 Oxygen Delivery Method Room Air Oxygen Flow Rate 0 Objective Labs Result Diagrams: 11/02/20 09:45 11/02/20 09:45 Labs: Laboratory Results - last 24 hr 11/02/20 11/02/20 11/02/20 09:45 09:45 09:45 WBC 13.4 H RBC 4.49 Hgb 13.5 Hct 39.6 MCV 88.1 MCH 30.1 MCHC 34.2 RDW 12.7 Plt Count 288 Neut % (Auto) 75.1 H Lymph % (Auto) 21.1 L [place] % (Auto) 2.3 L Eos % (Auto) 1.0 L Baso % (Auto) 0.5 Neut # (Auto) 87341 H Lymph # (Auto) 2800 [place] # (Auto) 300 Eos # (Auto) 100 Baso # (Auto) 100 Sodium 136 L Potassium 4.4 Chloride 106 Carbon Dioxide 24 BUN 9 Creatinine 0.54 Estimated GFR > 60.0 BUN/Creatinine Ratio 16.7 Glucose 94 Calcium 9.1 Magnesium 1.9 Total Bilirubin 0.4 AST 49 H ALT 40 H Alkaline Phosphatase 56 Total Protein 8.1 Albumin 4.2 Globulin 3.9 Albumin/Globulin Ratio 1.1 TSH 1.36 PFSH Medical History (Updated 11/02/20 @ 11:15 by Belen Little MD) Anxiety Closed left ankle fracture Depression Fibromyalgia Gastritis Numbness PTSD (post-traumatic stress disorder) Rheumatoid arthritis Sjogrens syndrome SLE (systemic lupus erythematosus) Ulnar neuropathy of both upper extremities Wrist pain Surgical History (Updated 10/30/20 @ 15:14 by Karen Leon RN) History of surgery (04/08/18) Hx of cholecystectomy Social History household members: significant other Smoking Status: Current every day smoker alcohol intake: current Assessment & Plan Post-op Assessment and plan (1) Unresponsive episode: (2) Idiosyncratic reaction to medication after proper dose: Postoperative Procedures: Procedures Operation Date: 11/02/20 07:45 Actual Procedures Side Surgeon p Hysteroscopy - removal of fibroid Belen Little MD Postoperative status narrative: Patient is recovering after reaction to fentanyl Postoperative plan narrative: Patient will be monitored for hours after Narcan administration before discharge
--- NOTE | 2020-11-02 12:33 | PC.ADMIT ---
955 [facility] Admission Note: Patient is alert and oriented, a little drowsy. Safe hand off from PACU. VSS. Patient is on Tele:NS. Patient has pain /10, Dr. Little telephoned for some Ibuprofen orders. Patient is on room air. Bowel tones are active. Patient has small ammt. of blood drainage on franklin pad. Call light is within reach, bed is low and locked. The patient,Carlos Cavanaugh,25 y/o, was given written information regarding hospital policies, unit procedures and contact persons. Patient's smoking status: Current every day smoker. Vital Signs - 8 hr 11/02/20 07:20 11/02/20 08:31 11/02/20 08:36 Temperature 98.6 F 98.0 F Pulse Rate 74 72 69 Respiratory Rate 16 11 L 12 Blood Pressure 112/69 111/68 111/68 Pulse Oximetry 99 92 92 11/02/20 08:41 11/02/20 08:47 11/02/20 08:50 Temperature 97.7 F 97.4 F L Pulse Rate 90 91 H 69 Respiratory Rate 16 20 12 Blood Pressure 128/76 134/80 130/83 Pulse Oximetry 100 100 98 11/02/20 08:58 11/02/20 09:00 11/02/20 09:03 Temperature Pulse Rate 76 76 75 Respiratory Rate 18 14 12 Blood Pressure 147/91 H 150/93 H 153/97 H Pulse Oximetry 100 100 98 11/02/20 09:07 11/02/20 09:10 11/02/20 09:15 Temperature 98.0 F Pulse Rate 95 H 88 76 Respiratory Rate 18 16 18 Blood Pressure 154/103 H 175/95 H 167/103 H Pulse Oximetry 100 100 100 11/02/20 09:23 11/02/20 09:32 11/02/20 09:37 Temperature Pulse Rate 70 71 71 Respiratory Rate 18 17 18 Blood Pressure 153/88 H 133/79 141/93 H Pulse Oximetry 100 100 100 11/02/20 09:47 11/02/20 09:52 11/02/20 09:57 Temperature Pulse Rate 76 74 74 Respiratory Rate 18 12 12 Blood Pressure 128/80 125/71 120/81 Pulse Oximetry 98 96 96 11/02/20 10:02 11/02/20 10:12 11/02/20 10:27 Temperature 98.1 F 97.4 F L Pulse Rate 70 73 72 Respiratory Rate 20 15 23 Blood Pressure 117/56 L 115/61 111/65 Pulse Oximetry 97 97 96 11/02/20 10:45 11/02/20 11:00 11/02/20 11:15 Temperature 97.4 F L Pulse Rate 66 73 62 Respiratory Rate 19 24 16 Blood Pressure 116/46 L 101/80 95/43 L Pulse Oximetry 96 97 97
[2020-11-02] MEDS: IBUPROFEN 600 MG TABLET PO (12:52)
--- NOTE | 2020-11-02 13:05 | P.PN_ITS ---
Subjective Subjective Date Patient Seen: 11/02/20 Time Patient Seen: 13:05 Interval history: Patient complains of abdominal and low back pain. She was asleep when I arrived in the room but was easily arousable. She is oriented. Exam Vital Signs (past 8 hours): - 11/02/20 07:20 11/02/20 08:31 11/02/20 08:36 Temperature 98.6 F 98.0 F Pulse Rate 74 72 69 Respiratory Rate 16 11 L 12 Blood Pressure 112/69 111/68 111/68 Pulse Oximetry 99 92 92 11/02/20 08:41 11/02/20 08:47 11/02/20 08:50 Temperature 97.7 F 97.4 F L Pulse Rate 90 91 H 69 Respiratory Rate 16 20 12 Blood Pressure 128/76 134/80 130/83 Pulse Oximetry 100 100 98 11/02/20 08:58 11/02/20 09:00 11/02/20 09:03 Temperature Pulse Rate 76 76 75 Respiratory Rate 18 14 12 Blood Pressure 147/91 H 150/93 H 153/97 H Pulse Oximetry 100 100 98 11/02/20 09:07 11/02/20 09:10 11/02/20 09:15 Temperature 98.0 F Pulse Rate 95 H 88 76 Respiratory Rate 18 16 18 Blood Pressure 154/103 H 175/95 H 167/103 H Pulse Oximetry 100 100 100 11/02/20 09:23 11/02/20 09:32 11/02/20 09:37 Temperature Pulse Rate 70 71 71 Respiratory Rate 18 17 18 Blood Pressure 153/88 H 133/79 141/93 H Pulse Oximetry 100 100 100 11/02/20 09:47 11/02/20 09:52 11/02/20 09:57 Temperature Pulse Rate 76 74 74 Respiratory Rate 18 12 12 Blood Pressure 128/80 125/71 120/81 Pulse Oximetry 98 96 96 11/02/20 10:02 11/02/20 10:12 11/02/20 10:27 Temperature 98.1 F 97.4 F L Pulse Rate 70 73 72 Respiratory Rate 20 15 23 Blood Pressure 117/56 L 115/61 111/65 Pulse Oximetry 97 97 96 11/02/20 10:45 11/02/20 11:00 11/02/20 11:15 Temperature 97.4 F L Pulse Rate 66 73 62 Respiratory Rate 19 24 16 Blood Pressure 116/46 L 101/80 95/43 L Pulse Oximetry 96 97 97 11/02/20 11:55 Temperature 97.9 F Pulse Rate 67 Respiratory Rate 17 Blood Pressure 121/86 Pulse Oximetry 98 Oxygen Delivery Method Room Air Oxygen Flow Rate 0 Narrative Exam Narrative: Abdomen is soft with no rebound. Mild lochia. Objective Labs Result Diagrams: 11/02/20 09:45 11/02/20 09:45 Labs: Laboratory Results - last 24 hr 11/02/20 11/02/20 11/02/20 09:45 09:45 09:45 WBC 13.4 H RBC 4.49 Hgb 13.5 Hct 39.6 MCV 88.1 MCH 30.1 MCHC 34.2 RDW 12.7 Plt Count 288 Neut % (Auto) 75.1 H Lymph % (Auto) 21.1 L [place] % (Auto) 2.3 L Eos % (Auto) 1.0 L Baso % (Auto) 0.5 Neut # (Auto) 93139 H Lymph # (Auto) 2800 [place] # (Auto) 300 Eos # (Auto) 100 Baso # (Auto) 100 Sodium 136 L Potassium 4.4 Chloride 106 Carbon Dioxide 24 BUN 9 Creatinine 0.54 Estimated GFR > 60.0 BUN/Creatinine Ratio 16.7 Glucose 94 Calcium 9.1 Magnesium 1.9 Total Bilirubin 0.4 AST 49 H ALT 40 H Alkaline Phosphatase 56 Total Protein 8.1 Albumin 4.2 Globulin 3.9 Albumin/Globulin Ratio 1.1 TSH 1.36 PFSH Medical History (Updated 11/02/20 @ 11:15 by Belen Little MD) Anxiety Closed left ankle fracture Depression Fibromyalgia Gastritis Numbness PTSD (post-traumatic stress disorder) Rheumatoid arthritis Sjogrens syndrome SLE (systemic lupus erythematosus) Ulnar neuropathy of both upper extremities Wrist pain Surgical History (Updated 10/30/20 @ 15:14 by Karen Leon RN) History of surgery (04/08/18) Hx of cholecystectomy Social History household members: significant other Smoking Status: Current every day smoker alcohol intake: current Assessment & Plan Post-op Postoperative Procedures: Procedures Operation Date: 11/02/20 07:45 Actual Procedures Side Surgeon p Hysteroscopy - removal of fibroid Belen Little MD Postoperative status narrative: Patient is stable about 4 hours post Narcan Postoperative plan narrative: Patient is discharged home with routine post hysteroscopy precautions. Went over with the patient the reaction she had to fentanyl and her need to tell Physicians in the future about this if she has need for narcotic pain medicine Quality VTE Deep Vein Thrombosis/Pulmonary Embolism Present on Admission: No
--- NOTE | 2020-11-02 16:10 | SUR.PHASEI ---
Pt transferred to post op bay 8, awake and alert at 0849. At 0850 pt noted to be unresponsive to voice and noxious stimuli. Pt pink, with strong radial pulse, and shallow respirations. Pt placed on portable monitor and 2LNC. VS at 0858 = 147/91 76 18 100%. Pt placed on 2L. 0900 - Dr Little and Dr Forte at bedside. Pt remains unresponsive. 0903 - Narcan 0.4mg IVP given. POC glucose = 85. Pupils 4mm equal and reactive. 909 - Dr Mitchell from ER at bedside. 09 - To CT on monitor. Pt remains unresponsive. VSS although BP increasing from baseline. 09 - Returned from CT to PACU. Dr Mitchell at bedside. 927 - Narcan 2mg IVP given. 0931 - Pt awake, alert, and oriented x3. 0932 - EKG and labs being drawn. Dr Little and Dr Mitchell at bedside numerous times throughout event. Pt remained responsive during the remainder of PACU stay. Report called to FADI Gamez. Pt transferred to acute care at 1143 by FADI Almanza. Please refer to documentation (VS and Assessments) in both Phase I and Phase II worklists. Phase I documentation was inadvertently charted in Phase II worklist.)
== END 2020-11-02 14:02 | disposition home or self-care (01) ==
LOC: OR 08:36 → AC 11:33
PROVIDERS: PCP Registered Nurse Diabetes Educator; Referring Provider Registered Nurse Diabetes Educator; Visit Provider Specialist
PROC: 0UDB8ZZ Extraction of Endometrium, Via Natural or Artificial Opening Endoscopic (ICD-10-PCS; CPT 58558; principal; 2020-11-02 07:45)
DX: D25.0 Submucous leiomyoma of uterus (principal); R41.89 Other symptoms and signs involving cognitive functions and awareness; T50.905A Adverse effect of unspecified drugs, medicaments and biological substances, initial encounter; F17.210 Nicotine dependence, cigarettes, uncomplicated; F41.9 Anxiety disorder, unspecified; F32.9 Major depressive disorder, single episode, unspecified; F43.10 Post-traumatic stress disorder, unspecified
CPT/HCPCS: 58561; 36415; 70450; 80053; 83735; 84443; 85025; 93005; 93010; J1100; J1885; J2250; J2310; J2405; J2704; J3010

== ENCOUNTER → 2020-11-07 14:25 | Outpatient (CLI) | payer OTHER, SELFPAY ==
[2020-11-02 12:11] VITALS: BMI 31.1
--- NOTE | 2020-11-07 14:27 | DI.RAD.S_ITS ---
PROCEDURE: XR ELBOW RT MIN 3V INDICATIONS: bilateral ulnar neuropathy TECHNIQUE: 3 views of the elbow were acquired. COMPARISON: None. FINDINGS: Bones: No fractures or dislocations. No suspicious bony lesions. Soft tissues: No elbow joint effusion. No suspicious soft tissue calcifications. IMPRESSION: Normal examination. If the patient's pain or other symptoms persist, consider further evaluation with MRI Dictated by: Chris Barahona M.D. on 11/07/2020 at 15:45 Approved by: Chris Barahona M.D. on 11/07/2020 at 15:46
--- NOTE | 2020-11-07 14:27 | DI.RAD.S_ITS ---
PROCEDURE: XR ELBOW LT MIN 3V INDICATIONS: bilateral ulnar neuropathy TECHNIQUE: 2 views of the elbow were acquired. COMPARISON: None. FINDINGS: Bones: No fractures or dislocations. No suspicious bony lesions. Soft tissues: No elbow joint effusion. No suspicious soft tissue calcifications. IMPRESSION: Normal examination. If the patient's pain or other symptoms persist, consider further evaluation with MRI Dictated by: Chris Barahona M.D. on 11/07/2020 at 16:53 Approved by: Chris Barahona M.D. on 11/07/2020 at 16:53
--- NOTE | 2020-11-07 14:27 | DI.RAD.S_ITS ---
PROCEDURE: XR WRIST LT 2V INDICATIONS: bilateral ulnar neuropathy TECHNIQUE: 2 views of the wrist were acquired. COMPARISON: None. FINDINGS: Bones: No fractures or dislocations. No suspicious bony lesions. Soft tissues: No suspicious soft tissue calcifications. IMPRESSION: Negative examination. If the patient's pain or other symptoms persist, consider further evaluation with MRI Dictated by: Chris Barahona M.D. on 11/07/2020 at 16:52 Approved by: Chris Barahona M.D. on 11/07/2020 at 16:53
--- NOTE | 2020-11-07 14:27 | DI.RAD.S_ITS ---
PROCEDURE: XR WRIST RT 2V INDICATIONS: bilateral ulnar neuropathy TECHNIQUE: 2 views of the wrist were acquired. COMPARISON: [facility], CR, XR WRIST LT 2V, 11/07/2020, 15:29. FINDINGS: Bones: No fracture. Anatomic alignment. Soft tissues: No suspicious soft tissue calcifications. IMPRESSION: Negative examination. If the patient's pain or other symptoms persist, consider further evaluation with MRI Dictated by: Chris Barahona M.D. on 11/07/2020 at 15:44 Approved by: Chris Barahona M.D. on 11/07/2020 at 15:45
== END ==
PROVIDERS: PCP Registered Nurse Diabetes Educator; Referring Provider Registered Nurse Diabetes Educator; Visit Provider Registered Nurse Diabetes Educator
DX: G56.23 Lesion of ulnar nerve, bilateral upper limbs (principal); M25.539 Pain in unspecified wrist
CPT/HCPCS: 73080; 73100

== ENCOUNTER → 2021-01-31 13:13 | Outpatient (CLI) | payer OTHER, SELFPAY ==
[2020-11-02 12:11] VITALS: BMI 31.1
[2021-01-31 14:08] LABS: Add Manual Diff / Slide Review NO; Basophils Absolute Auto 0 /uL (0-100); Basophils Percent Auto 0.6 % (0-2); Eosinophils Absolute Auto 700 /uL (0-450); Eosinophils Percent Auto 8.1 % (2-4); Hemoglobin 13.7 g/dL (12.0-16.0); Lymphocytes Absolute Auto 3400 /uL (1100-4500); Lymphocytes Percent Auto 40.3 % (25-40); Mean Corpuscular HGB Conc 34.1 % (30-36); Mean Corpuscular Hemoglobin 29.2 PG (26-34); Mean Corpuscular Volume 85.7 fL (80-100); Monocytes Absolute Auto 400 /uL (0-900); Monocytes Percent Auto 4.5 % (3-14); Neutrophils Absolute Auto 4000 /uL (1500-7000); Neutrophils Percent Auto 46.5 % (50-75); Platelet Count 289 X10^3/uL (150-400); Red Blood Cell Count 4.67 X10^6/uL (4.0-5.2); Red Cell Distribution Width 12.9 % (11.6-14.8); White Blood Cell Count 8.5 X10^3/uL (4.5-11.0)
[2021-01-31 14:18] LABS: Alanine Aminotransferase 84 IU/L (<35); Albumin 4.5 g/dL (3.5-5.0); Albumin Globulin Ratio 1.3 (1.0-2.8); Alkaline Phosphatase 63 U/L (38-126); Aspartate Aminotransferase 69 IU/L (14-36); BUN Creatinine Ratio 12.7 (6-22); Bilirubin Total 0.3 mg/dL (0.2-1.3); Blood Urea Nitrogen 7 mg/dL (7-17); Carbon Dioxide 28 mmol/L (22-32); Chloride 105 mmol/L (98-107); Estimated Glomerular Filt Rate > 60.0 mL/min (>60); Globulin 3.6 g/dL (1.7-4.1); Glucose 91 mg/dL (70-100); HEMOLYSIS < 15 (0-50); Potassium 4.1 mmol/L (3.4-5.1); Sodium 139 mmol/L (137-145); Total Protein 8.1 g/dL (6.3-8.2)
[2021-01-31 14:34] LABS: Erythrocyte Sedimentation Rate 13 MM/HR (0-20)
[2021-01-31 16:00] LABS: Vitamin D 25 Hydroxy (D3) 34.7 ng/mL (30.0-100.0)
[2021-02-08 08:01] LABS: Miscellaneous to LabCorp SEE SEPARATE RESULT
== END ==
PROVIDERS: PCP Registered Nurse Diabetes Educator; Referring Provider Internal Medicine; Visit Provider Internal Medicine
DX: R76.0 Raised antibody titer (principal); M35.9 Systemic involvement of connective tissue, unspecified; Z79.52 Long term (current) use of systemic steroids; M06.09 Rheumatoid arthritis without rheumatoid factor, multiple sites
CPT/HCPCS: 36415; 80053; 82306; 85025; 85651; 86146; 86147

== ENCOUNTER → 2021-03-09 11:32 | Outpatient (CLI) | payer OTHER, SELFPAY ==
[2020-11-02 12:11] VITALS: BMI 31.1
[2021-03-09 12:22] LABS: Bacteria Urine None Seen; WBC Urine None Seen (0-5/HPF)
[2021-03-09 13:03] LABS: Add Manual Diff / Slide Review NO; Basophils Absolute Auto 100 /uL (0-100); Basophils Percent Auto 1.1 % (0-2); Eosinophils Absolute Auto 600 /uL (0-450); Hematocrit 39.5 % (36-46); Hemoglobin 13.5 g/dL (12.0-16.0); Lymphocytes Absolute Auto 3900 /uL (1100-4500); Lymphocytes Percent Auto 53.7 % (25-40); Mean Corpuscular HGB Conc 34.2 % (30-36); Mean Corpuscular Hemoglobin 29.7 PG (26-34); Mean Corpuscular Volume 86.8 fL (80-100); Monocytes Absolute Auto 300 /uL (0-900); Monocytes Percent Auto 4.6 % (3-14); Neutrophils Absolute Auto 2300 /uL (1500-7000); Neutrophils Percent Auto 32.6 % (50-75); Platelet Count 289 X10^3/uL (150-400); Red Blood Cell Count 4.55 X10^6/uL (4.0-5.2); Red Cell Distribution Width 13.3 % (11.6-14.8); White Blood Cell Count 7.2 X10^3/uL (4.5-11.0)
[2021-03-09 13:10] LABS: Appearance Urine UA CLEAR; Bilirubin Urine UA NEGATIVE (NEGATIVE); Color Urine UA YELLOW; Glucose Urine UA NEGATIVE (Negative); Ketones Urine UA NEGATIVE (NEGATIVE); Leukocyte Esterase Urine UA NEGATIVE (NEGATIVE); Nitrite Urine UA NEGATIVE (Negative); Occult Blood Urine UA NEGATIVE (Negative); Protein Urine UA NEGATIVE (Negative); Specific Gravity Urine UA <=1.005 (1.000-1.035); Urobilinogen Urine UA 0.2 E.U./dL (0.2)
[2021-03-09 13:11] LABS: pH Urine UA 6.5 (4.5-8.0)
[2021-03-09 13:12] LABS: RBC Urine 0-1/HPF (0-5/HPF); Squamous Epithelial Cell Urine 5-10 /HPF (0-5/HPF)
[2021-03-09 13:28] LABS: Alanine Aminotransferase 94 IU/L (<35); Albumin 4.6 g/dL (3.5-5.0); Albumin Globulin Ratio 1.2 (1.0-2.8); Alkaline Phosphatase 57 U/L (38-126); Aspartate Aminotransferase 71 IU/L (14-36); BUN Creatinine Ratio 11.3 (6-22); Bilirubin Total 0.4 mg/dL (0.2-1.3); Blood Urea Nitrogen 7 mg/dL (7-17); C-Reactive Protein Quant < 0.5 mg/dL (<1.0); Calcium 9.5 mg/dL (8.4-10.2); Carbon Dioxide 28 mmol/L (22-32); Chloride 104 mmol/L (98-107); Estimated Glomerular Filt Rate > 60.0 mL/min (>60); Globulin 3.7 g/dL (1.7-4.1); Glucose 91 mg/dL (70-100); HEMOLYSIS < 15 (0-50); Potassium 4.1 mmol/L (3.4-5.1); Sodium 141 mmol/L (137-145); Total Protein 8.3 g/dL (6.3-8.2)
[2021-03-09 16:14] LABS: Erythrocyte Sedimentation Rate 9 MM/HR (0-20)
[2021-03-10 10:36] LABS: SARS CoV19 IgG Negative (Negative)
== END ==
PROVIDERS: PCP Registered Nurse Diabetes Educator; Referring Provider Internal Medicine; Visit Provider Internal Medicine
DX: M35.9 Systemic involvement of connective tissue, unspecified (principal); R05 Cough; Z20.822 Contact with and (suspected) exposure to COVID-19
CPT/HCPCS: 36415; 80053; 81001; 85025; 85651; 86140; 86769

== ENCOUNTER → 2021-04-11 16:50 | Outpatient (CLI) | payer OTHER, SELFPAY ==
[2021-03-30 10:31] VITALS: BMI 31.1
[2021-04-11 19:01] LABS: HCG Quantitative /Beta subunit 2055 mIU/mL
== END ==
PROVIDERS: PCP Registered Nurse Diabetes Educator; Referring Provider Specialist; Visit Provider Specialist
DX: O20.0 Threatened abortion (principal)
CPT/HCPCS: 36415; 84702

== ENCOUNTER → 2021-04-13 15:29 | Outpatient (CLI) | payer OTHER, SELFPAY ==
[2021-03-30 10:31] VITALS: BMI 31.1
[2021-04-13 17:37] LABS: Progesterone, Total 6.14 ng/mL
[2021-04-13 17:39] LABS: HCG Quantitative /Beta subunit 3149.8 mIU/mL
== END ==
PROVIDERS: PCP Registered Nurse Diabetes Educator; Referring Provider Specialist; Visit Provider Specialist
DX: O20.0 Threatened abortion (principal)
CPT/HCPCS: 36415; 84144; 84702

== ENCOUNTER → 2021-04-16 17:02 | Outpatient (CLI) | payer OTHER, SELFPAY ==
[2021-03-30 10:31] VITALS: BMI 31.1
[2021-04-16 19:08] LABS: HCG Quantitative /Beta subunit 6061 mIU/mL
== END ==
PROVIDERS: PCP Registered Nurse Diabetes Educator; Referring Provider Specialist; Visit Provider Specialist
DX: O20.9 Hemorrhage in early pregnancy, unspecified (principal)
CPT/HCPCS: 36415; 84702

== ENCOUNTER → 2021-05-14 09:42 | Outpatient (CLI) | payer OTHER, SELFPAY ==
[2021-03-30 10:31] VITALS: BMI 31.1
--- NOTE | 2021-05-14 09:43 | DI.US.S_ITS ---
PROCEDURE: US PELVIC COMPLETE INDICATIONS: MISSED AB; POSSIBLE RPOC TECHNIQUE: Real-time scanning was performed of the pelvic organs, with image documentation. Additional endovaginal scanning was necessary due to incomplete visualization of the adnexal and endometrial structures by transabdominal scanning. COMPARISON: [facility], US, US PELVIC COMPLETE, 05/09/2021, 16:32. FINDINGS: Uterus: Uterus is normal in size at 7.1 x 4.7 x 5.7 cm. The endometrium measures 19.7 mm in combined thickness. There is associated internal vascularity of the endometrial contents, suspicious for retained products of conception. Ovaries: Right ovary measures 3.1 x 1.6 x 2.2 cm. The left ovary measures 2.8 x 1.7 x 2.0 cm. Ovaries are unremarkable bilaterally. Other: No pathologic free abdominal or pelvic fluid. IMPRESSION: Thickened and heterogeneous endometrium, with areas of internal vascularity suspicious for retained products of conception. Dictated by: Chris Barahona M.D. on 05/14/2021 at 14:31 Approved by: Chris Barahona M.D. on 05/14/2021 at 14:33
== END ==
PROVIDERS: PCP Registered Nurse Diabetes Educator; Referring Provider Specialist; Visit Provider Specialist
DX: O02.1 Missed abortion (principal)
CPT/HCPCS: 76830; 76856

== ENCOUNTER → 2021-05-15 10:29 | Outpatient (CLI) | payer OTHER, SELFPAY ==
[2021-03-30 10:31] VITALS: BMI 31.1
[2021-05-15 11:08] LABS: COVID19 -Nasal RAPID Negative (Negative)
== END ==
PROVIDERS: PCP Registered Nurse Diabetes Educator; Visit Provider Specialist
DX: Z01.812 Encounter for preprocedural laboratory examination (principal); Z20.822 Contact with and (suspected) exposure to COVID-19
CPT/HCPCS: 87635

== ENCOUNTER 2021-05-15 11:18 | Day surgery (SDC) | payer OTHER, SELFPAY ==
[2021-03-30 10:31] VITALS: BMI 31.1
[2021-05-14 13:35] VITALS: BMI 29.2
[2021-05-15] VITALS (12 sets, daily range): BP systolic 95–125; BP diastolic 27–79; PULSE 46–74; RESP 11–20; TEMP 36.4–36.8; O2SAT 94–100; BMI 29.2
--- NOTE | 2021-05-15 | PATH_ITS ---
[facility] Accession Number: [id number] . 01 Material submitted: . product of conception - ENDOMETRIAL RETAINED PRODUCTS OF CONCEPTION . 02 Diagnosis: Endometrial Retained Products of Conception: Products of conception identified (syncytiotrophoblast). V 05/21/2021 1305 Local . 02 Electronically signed: . Dee Pop MD, Pathologist NPI- [id number] . 01 Gross description: . The specimen is received in formalin, labeled endometrial products of conception and consists of multiple phillips-brown fragments of soft tissue measuring 3.0 x 3.0 x 1.0 cm in aggregate. The specimen is filtered and entirely submitted in cassettes A1-A2. ([id number]) /[facility] 05/16/2021 1125 Local . 02 Pathologist provided ICD-10: O02.1 . 02 CPT . 119334 Performed at: 01 [facility] [address] [facility], [place], [place] [id number] MD Bin Rodriguez MD Phone: [phone] Performed at: 02 [facility] [address] [place], [place] [id number] MD Mague Aceves MD Phone: [phone]
[2021-05-15] MEDS: LACTATED RINGERS 1,000 ML 100 ML IV (11:53)
--- NOTE | 2021-05-15 11:54 | SUR.OPER ---
Lithotomy on padded OR bed, head on pillow, arms secured on padded arm boards at <90 degrees abduction. Legs secured in padded yellow fins stirrups.
--- NOTE | 2021-05-15 12:29 | PM.PREOP ---
Pre-operative Note COVID-19 COVID-19 status: Negative Result date/Date tested (Pos, Neg/Pending): 05/15/21 Interval Note History & Physical reviewed/Exam performed by Physician: Yes Changes to H&P: No
--- NOTE | 2021-05-15 13:03 | P.OP_ITS ---
Operative Date/Time/Diagnoses Date of procedure: 05/15/21 Time of procedure: 13:04 Pre-op diagnosis: incomplete miscarriage Post-op diagnosis: same Procedure & Clinicians Procedure: D&C Same procedure as scheduled: Yes Indications: Retained products of conception after documented demise with heavy bleeding Surgeon: Belen Little Click Yes if Unassisted: Yes Anesthesia Type: General Operative Notes Findings: Retained products of conception otherwise normal exam under anesthesia Closure Type: not applicable Specimen(s): other ( retained products of conception) Estimated Blood Loss (mL): 10 Procedure in detail: Patient was brought to the operating room where she was placed in [facility] after undergoing general anesthesia. She was prepped and draped in the usual sterile fashion with her bladder drained with an in and out catheter. No antibiotics were indicated. Warming was with blankets. Pulsatile stockings in place and functional. A check system was reviewed with the staff in the room prior to beginning the case. A single-tooth tenaculum was placed on the anterior lip of the cervix and the cervix was dilated to a number 8 Hegar dilator. A curette was placed in the uterus and tissue removed by scraping. The the tissue was sent to pathology. Patient went to recovery room in good condition. Counts of instruments and sponges were correct. Complications: none Post-operative Condition: stable Disposition: same day surgery Plan for aftercare: home when awake and stable
[2021-05-15] MEDS: ACETAMINOPHEN 325 MG TABLET 650 MG PO (13:21)
[2021-05-15] MEDS: diphenhydrAMINE 50 MG/ML VIAL 25 MG IV (13:39)
--- NOTE | 2021-05-15 14:01 | SUR.PHASEI ---
Assumed care of pty at 1321, pt c/o itching to face, ears, neck, back. Small raised bumps and red skin to ears, skin around ears and neck. Dr. Little and Dr. Edwards made aware Benedryl 25mg iv given, 15 minutes later symptoms still present, Dr. Edwards made aware, Dr. Forte to bedside to consult. No new orders received.
--- NOTE | 2021-05-15 14:12 | SUR.PHASEI ---
Assisted pt to use bedpan, voided large amount of urine. Widla pad changed, small amount of bloody drainage on pad changed. Denies and never had any SOB.
--- NOTE | 2021-05-15 14:55 | SUR.PHASEII ---
Up to BR to void, steady when up. No further itching red skin and raised bumps resolved. Spoke with Dr. Edwards, reported pt's VS and condition. pt allowed to go home.
--- NOTE | 2021-05-15 15:32 | SUR.PHASEII ---
1515 Pt dressed, left when ready and left in stable condition.
== END 2021-05-15 15:15 | disposition home or self-care (01) ==
PROVIDERS: PCP Registered Nurse Diabetes Educator; Referring Provider Specialist; Visit Provider Specialist
PROC: (CPT 58120; principal; 2021-05-15 12:30)
DX: O73.1 Retained portions of placenta and membranes, without hemorrhage (principal); Z01.818 Encounter for other preprocedural examination; Z20.822 Contact with and (suspected) exposure to COVID-19
CPT/HCPCS: 59812; 87635; J1100; J1200; J1885; J2405; J2704; J3010

== ENCOUNTER 2021-06-24 20:36 | Emergency (ER) | payer OTHER, SELFPAY ==
[2021-03-30 10:31] VITALS: BMI 31.1
[2021-06-24 20:55] VITALS: BP 153/70; PULSE 88; RESP 16; TEMP 36.3; O2SAT 99
[2021-06-24] MEDS: ONDANSETRON 4 MG ODT PO (21:02)
[2021-06-24 23:29] VITALS: BP 140/91; PULSE 70; O2SAT 100
[2021-06-24 23:30] VITALS: BP 140/89; PULSE 78; O2SAT 100
--- NOTE | 2021-06-24 23:39 | ED_ITS ---
HPI - Nausea/Vomiting/Diarrhea General Chief complaint: Nausea/Vomiting/Diarrhea Stated complaint: THROWING UP DIARRHEA VOMITING Time Seen by Provider: 06/24/21 20:38 Source: patient Mode of arrival: Ambulatory Limitations: no limitations History of Present Illness HPI Narrative: 25-year-old female nonsmoker with history of autoimmune disorders and chronic abdominal pain presents with her significant other and a chief complaint of many days of generalized abdominal pain, nausea, vomiting and diarrhea. She has had no fever chills but has become quite fatigued and is dizzy and lightheaded. She states any time she eats anything she gets pain and has diarrhea. She denies any dysuria, frequency or urgency. She has recently started employing a gluten free diet. She does have an extensive history of GI complaints and frequently has elevated LFTs. She has had her gallbladder surgically removed and most recent endoscopy was about 2 years ago. She was seen and evaluated at an outside facility a few days ago and had reassuring labs but no imaging and was discharged with a diagnosis of anxiety. She presents here tonight stating she has ongoing symptoms Related Data Home Medications Medication Instructions Recorded Confirmed calcium carbonate-vitamin D3 600 1 tab PO DAILY tab 12/22/20 04/24/21 mg(1,500 mg)-400 unit chewable tablet (Calcium 600 with Vitamin D3) cholecalciferol (vitamin D3) 1,250 1,250 mcg PO QWEEK 12/22/20 05/15/21 mcg (50,000 unit) capsule belimumab 200 mg/mL subcutaneous 200 mg SUBCUT QWEEK 05/09/21 05/15/21 auto-injector (Benlysta) Previous Rx's Medication Instructions Recorded progesterone micronized 200 mg 200 mg PO BID #60 cap 04/18/21 capsule (Prometrium) hydrocodone 5 mg-acetaminophen 325 1 tab PO Q4-6H PRN #10 tab 05/15/21 mg tablet hyoscyamine sulfate 0.125 mg tablet 0.125 mg PO BID-QID PRN #20 tab 06/25/21 promethazine 12.5 mg rectal 12.5 mg OK Q4-6H PRN #12 each 06/25/21 suppository Allergies Allergy/AdvReac Type Severity Reaction Status Date / Time fentanyl Allergy Severe Unresponsive Verified 06/24/21 21:00 after 50 mcg Review of Systems Review of Systems Narrative: GENERAL: Denies chills, fatigue, malaise, fever, sweats. HEENT: Denies sinus pain, ear pain, sore throat, difficulty swallowing, dizziness. RESPIRATORY: Denies dyspnea, cough, wheezing, hemoptysis, sputum. CARDIOVASCULAR: Denies chest pain, palpitations, orthopnea, edema, GASTROINTESTINAL: See HPI : Denies dysuria, frequency, incontinence, hematuria, urinary retention. MUSCULOSKELETAL: denies weakness, joint pain, or bony pain SKIN: Denies rash, skin lesions, or other NEUROLOGIC: Denies weakness, headache, numbness, change in speech, confusion, seizures, incoordination. PSYCHIATRIC: No concerning psychosocial issues. 12 point review of systems is negative except for those stated above Patient History Medical History Anembryonic Ankle pain (~2017) Anxiety (~2018) Closed left ankle fracture Depression (~2018) Fibromyalgia (~2019) Gastritis GERD (gastroesophageal reflux disease) (~2017) Lupus (~2019) Numbness PTSD (post-traumatic stress disorder) (~2019) Rheumatoid arthritis (~2019) Sjogrens syndrome (~2019) SLE (systemic lupus erythematosus) Ulnar neuropathy of both upper extremities Wrist pain Surgical History Anesthesia History of hysteroscopy (11/02/20) History of surgery (04/08/18) Hx of cholecystectomy (~2017) Family History Father No problems noted. Mother No problems noted. Grandfather No problems noted. Grandmother No problems noted. Grandfather No problems noted. Grandmother No problems noted. Social History household members: significant other Smoking Status: Former smoker alcohol intake: current Smoking Status: Former smoker alcohol intake frequency: holidays/special occasions only Substance Use Type: marijuana Exam Narrative Exam Narrative: GENERAL: 25 year old patient appears stated age. Well-developed patient, in mild distress. HEAD: Atraumatic. Normocephalic. EYES: Pupils equal round and reactive. Extraocular motions intact. No scleral icterus. No injection or drainage. ENT: Nose without bleeding, purulent drainage. Throat without erythema, tonsillar hypertrophy or exudate. Airway patent. NECK: Trachea midline. Non tender CARDIOVASCULAR: Regular rate and rhythm without murmurs, gallops, or rubs. RESPIRATORY: Clear to auscultation. Breath sounds equal bilaterally. No wheezes, rales, or rhonchi. GASTROINTESTINAL: Abdomen soft, generalized tenderness nondistended. EXTREMITIES: No edema or joint tenderness. BACK: Nontender without deformity or crepitance. No flank tenderness. NEURO: AOx3. SKIN: No rash or erythema of visible areas Initial Vital Signs Initial Vital Signs: Vital Signs Temperature 97.4 F L 06/24/21 20:55 Pulse Rate 88 06/24/21 20:55 Respiratory Rate 16 06/24/21 20:55 Blood Pressure 153/70 H 06/24/21 20:55 Pulse Oximetry 99 06/24/21 20:55 Course Orders Ordered: ED Orders 06/24/21 23:35 Complete Blood Count AUTO DIFF Stat Comprehensive Metabolic Panel Stat Hepatic (Liver) Panel Stat Lipase Stat 06/25/21 00:04 Urinalysis and Microscopic Stat 06/25/21 01:08 CT abdomen pelvis w con Stat Discontinued Medications Hydromorphone HCl (Hydromorphone 0.5 Mg Inj) 0.5 mg IV NOW ONE Stop: 06/25/21 01:08 Last Admin: 06/25/21 02:08 Dose: 0.5 mg Documented by: [email or web address] Sodium Chloride (Normal Saline 0.9%) 1,000 mls @ 1,000 mls/hr IV BOLUS ONE Stop: 06/25/21 02:06 Last Infusion: 06/25/21 02:30 Dose: 0 mls/hr Documented by: [email or web address] Admin: 06/25/21 02:08 Dose: 1,000 mls/hr Documented by: [email or web address] Ondansetron HCl (Ondansetron 4 Mg Odt) 4 mg PO NOW ONE Stop: 06/24/21 21:01 Last Admin: 06/24/21 21:02 Dose: 4 mg Documented by: AMEE Ondansetron HCl (Ondansetron 4 Mg/2 Ml Inj) 4 mg IV NOW ONE Stop: 06/25/21 01:08 Last Admin: 06/25/21 02:07 Dose: 4 mg Documented by: [email or web address] Vital Signs Vital signs: Vital Signs - 8 hr 06/24/21 23:29 06/24/21 23:30 06/25/21 02:04 Pulse Rate 70 78 82 Blood Pressure 140/91 H 140/89 Pulse Oximetry 100 100 97 06/25/21 02:05 06/25/21 02:30 06/25/21 02:31 Pulse Rate 75 69 69 Blood Pressure 135/74 131/81 Pulse Oximetry 99 96 97 MDM - Nausea/Vomiting/Diarrhea Lab Data Result diagrams: 06/24/21 23:35 06/24/21 23:35 Labs: Lab Results 06/24/21 06/24/21 06/24/21 Range/Units 23:35 23:35 23:35 WBC 12.9 H (4.5-11.0) X10^3/uL RBC 4.77 (4.0-5.2) X10^6/uL Hgb 14.3 (12.0-16.0) g/dL Hct 41.9 (36-46) % MCV 87.8 (80-100) fL MCH 29.9 (26-34) PG MCHC 34.0 (30-36) % RDW 12.7 (11.6-14.8) % Plt Count 325 (150-400) X10^3/uL Neut % (Auto) 54.7 (50-75) % Lymph % (Auto) 39.0 (25-40) % [place] % (Auto) 5.1 (3-14) % Eos % (Auto) 0.4 L (2-4) % Baso % (Auto) 0.8 (0-2) % Neut # (Auto) 7100 H (3813-0802) /uL Lymph # (Auto) 5000 H (3096-1985) /uL [place] # (Auto) 700 (0-900) /uL Eos # (Auto) 100 (0-450) /uL Baso # (Auto) 100 (0-100) /uL Sodium 141 (137-145) mmol/L Potassium 3.7 (3.4-5.1) mmol/L Chloride 104 (98-107) mmol/L Carbon Dioxide 26 (22-32) mmol/L BUN 7 (7-17) mg/dL Creatinine 0.53 (0.52-1.04) mg/dL Estimated GFR > 60.0 (>60) mL/min BUN/Creatinine Ratio 13.2 (6-22) Glucose 90 (70-100) mg/dL Calcium 9.6 (8.4-10.2) mg/dL Total Bilirubin 0.7 0.7 (0.2-1.3) mg/dL Conjugated Bilirubin 0.0 (0.0-0.3) md/dL Unconjugated Bilirubin 0.5 (0.0-1.1) mg/dL AST 59 H 59 H (14-36) IU/L ALT 72 H 73 H (<35) IU/L Alkaline Phosphatase 76 76 (38-126) U/L Total Protein 8.8 H 8.6 H (6.3-8.2) g/dL Albumin 4.9 4.8 (3.5-5.0) g/dL Globulin 3.9 3.8 (1.7-4.1) g/dL Albumin/Globulin Ratio 1.3 1.3 (1.0-2.8) Lipase 92 (23-300) U/L Urine Color Urine Appearance Urine pH (4.5-8.0) Ur Specific [place] (1.000-1.035) Urine Protein (Negative) Urine Glucose (UA) (Negative) g/dL Urine Ketones (NEGATIVE) Urine Occult Blood (Negative) Urine Nitrate (Negative) Urine Bilirubin (NEGATIVE) Urine Urobilinogen (0.2) E.U./dL Ur Leukocyte Esterase (NEGATIVE) Urine RBC (0-5/HPF) Urine WBC (0-5/HPF) Ur Squamous Epith Cells (0-5/HPF) Urine Bacteria (None) Ur Culture Indicated? 06/24/21 Range/Units 23:35 WBC (4.5-11.0) X10^3/uL RBC (4.0-5.2) X10^6/uL Hgb (12.0-16.0) g/dL Hct (36-46) % MCV (80-100) fL MCH (26-34) PG MCHC (30-36) % RDW (11.6-14.8) % Plt Count (150-400) X10^3/uL Neut % (Auto) (50-75) % Lymph % (Auto) (25-40) % [place] % (Auto) (3-14) % Eos % (Auto) (2-4) % Baso % (Auto) (0-2) % Neut # (Auto) (8150-3071) /uL Lymph # (Auto) (5045-6804) /uL [place] # (Auto) (0-900) /uL Eos # (Auto) (0-450) /uL Baso # (Auto) (0-100) /uL Sodium (137-145) mmol/L Potassium (3.4-5.1) mmol/L Chloride (98-107) mmol/L Carbon Dioxide (22-32) mmol/L BUN (7-17) mg/dL Creatinine (0.52-1.04) mg/dL Estimated GFR (>60) mL/min BUN/Creatinine Ratio (6-22) Glucose (70-100) mg/dL Calcium (8.4-10.2) mg/dL Total Bilirubin (0.2-1.3) mg/dL Conjugated Bilirubin (0.0-0.3) md/dL Unconjugated Bilirubin (0.0-1.1) mg/dL AST (14-36) IU/L ALT (<35) IU/L Alkaline Phosphatase (38-126) U/L Total Protein (6.3-8.2) g/dL Albumin (3.5-5.0) g/dL Globulin (1.7-4.1) g/dL Albumin/Globulin Ratio (1.0-2.8) Lipase (23-300) U/L Urine Color Yellow Urine Appearance Clear Urine pH 6.5 (4.5-8.0) Ur Specific [place] <=1.005 (1.000-1.035) Urine Protein Negative (Negative) Urine Glucose (UA) Negative (Negative) g/dL Urine Ketones Trace H (NEGATIVE) Urine Occult Blood Trace-lysed (Negative) Urine Nitrate Negative (Negative) Urine Bilirubin Negative (NEGATIVE) Urine Urobilinogen 0.2 (0.2) E.U./dL Ur Leukocyte Esterase Negative (NEGATIVE) Urine RBC None seen (0-5/HPF) Urine WBC None seen (0-5/HPF) Ur Squamous Epith Cells 0-1 /hpf (0-5/HPF) Urine Bacteria None seen (None) Ur Culture Indicated? Cult not indicated Point of Care Testing Test Results Negative Imaging Data CT scan - abdomen/pelvis: Radiologist's Impression: [facility] [place] [address] [id number] Scan ReportSigned Patient: Mehdi Cavanaugh#: [id number]: 1995Acct:[id number]/Sex: 25 / FDate of Service: 06/25/21Loc: EDAccession Number: [id number] Procedure: CT abdomen pelvis w con Ordering Provider: Kwaku Mccollum D.O. PROCEDURE: CT ABDOMEN PELVIS W CON INDICATIONS: abdominal pain, N/V TECHNIQUE: After the administration of intravenous contrast, axial sections acquired from the lung bases to the pubic symphysis. Coronal and sagittal reformats were performed. For radiation dose reduction, the following was used: automated exposure control, adjustment of mA and/or kV according to patient size. COMPARISON: [facility], CT, CT ABDOMEN PELVIS W CON, 10/11/2018, 23:56. FINDINGS: Image quality: Excellent. Lung bases: Unremarkable. Heart: No significant findings. ABDOMEN: Liver: Unremarkable. Gallbladder: Surgically absent Biliary ducts: Unremarkable. Pancreas: Unremarkable. Spleen: Unremarkable. Adrenal Glands: Unremarkable. Kidneys and Ureters: Unremarkable. Stomach and Bowel: Stomach, small bowel loops, and colon are unremarkable. Peritoneum: No abnormal intraperitoneal fluid. No free air. Ventral Wall: No hernias. Abdominal Nodes: No retroperitoneal or mesenteric adenopathy by size criteria. Vessels: Aorta and inferior vena cava are normal in size. PELVIS: Pelvic Organs: Unremarkable. Bladder: Unremarkable. Pelvic Nodes: No enlarged lymph nodes. Miscellaneous: No hernias are seen. Bones: Unremarkable. IMPRESSION: 1. Remote cholecystectomy. 2. No evidence of acute abdominal process. Dictated by: Ramesh Fang M.D. on 06/25/2021 at 1:49 Approved by: Ramesh Fang M.D. on 06/25/2021 at 1:52 Discharge Plan Departure Patient Disposition: Home Clinical Impression: Abdominal pain Qualifiers: Abdominal location: generalized Qualified Code(s): R10.84 - Generalized abdominal pain Diarrhea Qualifiers: Diarrhea type: unspecified type Qualified Code(s): R19.7 - Diarrhea, unspecified Instructions: DI for Abdominal Pain-Adult Activity Restrictions/Additional Instructions: *You have been diagnosed with [acute on chronic abdominal pain with nausea and diarrhea. Lab work and CT are very reassuring] *What to do: *Please continue to take your regular medications as directed. [x ] New medication prescriptions sent to your pharmacy: [[facility] in [place] ] [ ] New medication written as a paper prescription [ ] No new medications given *Please follow up with your primary care provider in 2-3 days, call for an appointment. Let them know you were seen in the Emergency Department and that we ask that you be seen in follow up. We will electronically transmit a record of today's note if your PCP is in our system *If you do not have a primary care provider please contact the [facility] Resource line at [phone]. They will ask some questions about your medical history and help get you set up with a doctor in the community. *Return to Emergency Department if you should have any new, worsening or concerning symptoms, such as [fever greater than 101 F, shaking chills, worsening pain, persistent vomiting or other bothersome symptoms] Prescriptions: New hyoscyamine sulfate 0.125 mg tablet 0.125 mg PO BID-QID PRN (Reason: dyspepsia) Qty: 20 RF: 0 promethazine 12.5 mg suppository 12.5 mg OK Q4-6H PRN (Reason: nausea and vomiting) Qty: 12 RF: 0 No Action progesterone micronized [Prometrium] 200 mg capsule 200 mg PO BID Qty: 60 RF: 2 cholecalciferol (vitamin D3) 1,250 mcg (50,000 unit) capsule 1,250 mcg PO QWEEK RF: 0 Calcium 600 with Vitamin D3 600 mg(1,500mg) -400 unit tablet,chewable 1 tab PO DAILY RF: 0 Benlysta 200 mg/mL auto-injector 200 mg SUBCUT QWEEK RF: 0 hydrocodone-acetaminophen 5-325 mg tablet 1 tab PO Q4-6H PRN (Reason: pain) Qty: 10 RF: 0 Referrals: Carlos Bonner ARNP [Primary Care Provider] -
[2021-06-25 00:02] LABS: Add Manual Diff / Slide Review NO; Basophils Absolute Auto 100 /uL (0-100); Basophils Percent Auto 0.8 % (0-2); Eosinophils Absolute Auto 100 /uL (0-450); Eosinophils Percent Auto 0.4 % (2-4); Hematocrit 41.9 % (36-46); Hemoglobin 14.3 g/dL (12.0-16.0); Lymphocytes Absolute Auto 5000 /uL (1100-4500); Mean Corpuscular Hemoglobin 29.9 PG (26-34); Mean Corpuscular Volume 87.8 fL (80-100); Monocytes Absolute Auto 700 /uL (0-900); Monocytes Percent Auto 5.1 % (3-14); Neutrophils Absolute Auto 7100 /uL (1500-7000); Neutrophils Percent Auto 54.7 % (50-75); Platelet Count 325 X10^3/uL (150-400); Red Blood Cell Count 4.77 X10^6/uL (4.0-5.2); Red Cell Distribution Width 12.7 % (11.6-14.8); White Blood Cell Count 12.9 X10^3/uL (4.5-11.0)
[2021-06-25 00:08] LABS: Alanine Aminotransferase 73 IU/L (<35); Albumin 4.8 g/dL (3.5-5.0); Albumin Globulin Ratio 1.3 (1.0-2.8); Alkaline Phosphatase 76 U/L (38-126); Aspartate Aminotransferase 59 IU/L (14-36); Bacteria Urine None Seen; Bilirubin Total 0.7 mg/dL (0.2-1.3); Bilirubin Unconjugated 0.5 mg/dL (0.0-1.1); Globulin 3.8 g/dL (1.7-4.1); HEMOLYSIS < 15 (0-50); RBC Urine None Seen (0-5/HPF); Total Protein 8.6 g/dL (6.3-8.2); WBC Urine None Seen (0-5/HPF)
[2021-06-25 00:09] LABS: Alanine Aminotransferase 72 IU/L (<35); Albumin 4.9 g/dL (3.5-5.0); Albumin Globulin Ratio 1.3 (1.0-2.8); Alkaline Phosphatase 76 U/L (38-126); Aspartate Aminotransferase 59 IU/L (14-36); BUN Creatinine Ratio 13.2 (6-22); Bilirubin Total 0.7 mg/dL (0.2-1.3); Blood Urea Nitrogen 7 mg/dL (7-17); Calcium 9.6 mg/dL (8.4-10.2); Carbon Dioxide 26 mmol/L (22-32); Chloride 104 mmol/L (98-107); Estimated Glomerular Filt Rate > 60.0 mL/min (>60); Globulin 3.9 g/dL (1.7-4.1); Glucose 90 mg/dL (70-100); HEMOLYSIS < 15 (0-50); Lipase 92 U/L (23-300); Potassium 3.7 mmol/L (3.4-5.1); Sodium 141 mmol/L (137-145); Total Protein 8.8 g/dL (6.3-8.2)
[2021-06-25 00:30] LABS: Appearance Urine UA CLEAR; Bilirubin Urine UA NEGATIVE (NEGATIVE); Color Urine UA YELLOW; Glucose Urine UA NEGATIVE (Negative); Ketones Urine UA TRACE (NEGATIVE); Leukocyte Esterase Urine UA NEGATIVE (NEGATIVE); Nitrite Urine UA NEGATIVE (Negative); Occult Blood Urine UA TRACE-LYSED (Negative); Protein Urine UA NEGATIVE (Negative); Specific Gravity Urine UA <=1.005 (1.000-1.035); Urobilinogen Urine UA 0.2 E.U./dL (0.2)
[2021-06-25 00:33] LABS: pH Urine UA 6.5 (4.5-8.0)
[2021-06-25 00:53] LABS: Culture Indicated Urine Cult Not Indicated; Squamous Epithelial Cell Urine 0-1 /HPF (0-5/HPF)
--- NOTE | 2021-06-25 01:08 | DI.CT.S_ITS ---
PROCEDURE: CT ABDOMEN PELVIS W CON INDICATIONS: abdominal pain, N/V TECHNIQUE: After the administration of intravenous contrast, axial sections acquired from the lung bases to the pubic symphysis. Coronal and sagittal reformats were performed. For radiation dose reduction, the following was used: automated exposure control, adjustment of mA and/or kV according to patient size. COMPARISON: [facility], CT, CT ABDOMEN PELVIS W CON, 10/11/2018, 23:56. FINDINGS: Image quality: Excellent. Lung bases: Unremarkable. Heart: No significant findings. ABDOMEN: Liver: Unremarkable. Gallbladder: Surgically absent Biliary ducts: Unremarkable. Pancreas: Unremarkable. Spleen: Unremarkable. Adrenal Glands: Unremarkable. Kidneys and Ureters: Unremarkable. Stomach and Bowel: Stomach, small bowel loops, and colon are unremarkable. Peritoneum: No abnormal intraperitoneal fluid. No free air. Ventral Wall: No hernias. Abdominal Nodes: No retroperitoneal or mesenteric adenopathy by size criteria. Vessels: Aorta and inferior vena cava are normal in size. PELVIS: Pelvic Organs: Unremarkable. Bladder: Unremarkable. Pelvic Nodes: No enlarged lymph nodes. Miscellaneous: No hernias are seen. Bones: Unremarkable. IMPRESSION: 1. Remote cholecystectomy. 2. No evidence of acute abdominal process. Dictated by: Ramesh Fang M.D. on 06/25/2021 at 1:49 Approved by: Ramesh Fang M.D. on 06/25/2021 at 1:52
[2021-06-25 02:04] VITALS: PULSE 82; O2SAT 97
[2021-06-25 02:05] VITALS: BP 135/74; PULSE 75; O2SAT 99
[2021-06-25] MEDS: ONDANSETRON 4 MG/2 ML INJ IV (02:07)
[2021-06-25] MEDS: SODIUM CHLORIDE 0.9% 1,000 ML 1000 ML IV (02:08)
[2021-06-25] MEDS: HYDROMORPHONE 0.5 MG INJ IV (02:08)
[2021-06-25 02:30] VITALS: PULSE 69; O2SAT 96
[2021-06-25 02:31] VITALS: BP 131/81; PULSE 69; O2SAT 97
== END 2021-06-25 02:36 | disposition home or self-care (01) ==
PROVIDERS: Emergency Provider Emergency Medicine; PCP Registered Nurse Diabetes Educator
DX: R10.84 Generalized abdominal pain (principal); R11.2 Nausea with vomiting, unspecified; R19.7 Diarrhea, unspecified
CPT/HCPCS: 36415; 74177; 80053; 80076; 81001; 81025; 83690; 85025; 96374; 96375; 99284; J1170; J2405; Q9967

== ENCOUNTER → 2021-07-07 14:11 | Outpatient (CLI) | payer OTHER, SELFPAY ==
[2021-03-30 10:31] VITALS: BMI 31.1
[2021-07-07 14:48] LABS: COVID19 -Nasal RAPID POSITIVE (Negative)
== END ==
PROVIDERS: PCP Registered Nurse Diabetes Educator; Visit Provider Physician Assistant
DX: U07.1 COVID-19 (principal)
CPT/HCPCS: 87635

== ENCOUNTER 2021-09-06 18:35 | Emergency (ER) | payer OTHER, SELFPAY ==
[2021-03-30 10:31] VITALS: BMI 31.1
[2021-09-06 18:43] VITALS: BP 142/86; PULSE 137; RESP 24; TEMP 36.5; O2SAT 99; BMI 25.4
[2021-09-06 19:41] LABS: Bacteria Urine None Seen; Culture Indicated Urine Cult Not Indicated; Mucus Urine 1+ (Negative); RBC Urine 1-5/HPF (0-5/HPF); Squamous Epithelial Cell Urine 1-5 /HPF (0-5/HPF); WBC Urine 0-1/HPF (0-5/HPF)
[2021-09-06 19:49] VITALS: BP 104/60; PULSE 97; O2SAT 100
--- NOTE | 2021-09-06 20:06 | DI.US.S_ITS ---
PROCEDURE: US OB <= 14 WEEKS FETUS INDICATIONS: DUB; POSITIVE TEST OUTSIDE/PRIOR DATING DATA: Last menstrual period (LMP): 09/03/21. LMP-based estimated date of delivery (AURA): 06/10/22. First dating scan (date and location): 09/06/21, current study. Estimated date of delivery (AURA) from first dating scan: 05/03/22. TECHNIQUE: Real-time scanning was performed of the fetus and maternal pelvic organs, with image documentation. Endovaginal scanning was also performed to better visualize the fetus and maternal ovaries. COMPARISON: [facility], OB <= 14 WEEKS FETUS, 07/19/2020, 21:33. FINDINGS: Embryo: An intrauterine is present including a single pole with an average crown-rump length of 2.4 mm corresponding to a five week six day plus or minus four days gestation. There is detectable cardiac activity in the fetus at a rate of 99 beats per minute. A normal yolk sac is present. Heart rate: 99 beats per minute. Measurement variability in dating: +/- 4 weeks by LMP, +/- 7 days by mean sac diameter (use before 6 weeks gestation if crown-rump length not able to be measured), +/- 5 days by crown-rump length (up to 8 weeks 6 days gestation), +/- 7 days by crown-rump length (up to 13 weeks 6 days gestation). Maternal organs: Anteverted anteflexed uterus contains a fundal gestational sac. The cervix is closed. No perigestational hemorrhage. The right ovary contains an involuting corpus luteum. The left ovary contains a 2.7 cm simple dominant follicle. IMPRESSION: 1. Single living intrauterine with a gestational age of five weeks, six days, and sonographically derived due date of 05/03/22. 2. Right ovarian corpus luteum. Dictated by: Dior Carter M.D. on 09/06/2021 at 21:21 Approved by: Dior Carter M.D. on 09/06/2021 at 21:25
--- NOTE | 2021-09-06 20:06 | ED.NAVMDI ---
HPI - Nausea/Vomiting/Diarrhea General Chief complaint: Nausea/Vomiting/Diarrhea Stated complaint: Throwing Up, Dizzy, Stomach Pain, Diarrhea Time Seen by Provider: 09/06/21 20:04 Source: patient Mode of arrival: Ambulatory Limitations: no limitations History of Present Illness HPI Narrative: This is a 26-year-old female with 2 prior miscarriages and a prior D&C who has had longstanding nausea and vomiting and intermittent diarrhea and constipation. She gets bloating but does not really have significant pain. Patient has not had fevers. She has been having vaginal bleeding for the past 4-5 days. Patient denies any lightheadedness or passing out. No chest pain or shortness of breath. She is not having any abdominal pain at this time. No back or flank pain. No dysuria, urgency or frequency. Patient did check a test at home on Friday and was positive. Last time she checked was June or July and was negative at that time. She has had very irregular periods since her D and C in April or May and had spotting in June or July. In terms of patient's Gastroenterology history she does have a history several autoimmune diseases and is on an injectable on monoclonal antibody. Has seen GI and was told she had ?a personal problem? and was told something about her diet and to take MiraLax when she is constipated. She did have an upper and lower scope as soon as 2018 but has not had any findings on those. She has had a cholecystectomy and removal of fibroid. Dr. Little was prior OB for patient. Related Data Home Medications Medication Instructions Recorded Confirmed calcium carbonate-vitamin D3 600 1 tab PO DAILY tab 12/22/20 04/24/21 mg(1,500 mg)-400 unit chewable tablet (Calcium 600 with Vitamin D3) cholecalciferol (vitamin D3) 1,250 1,250 mcg PO QWEEK 12/22/20 05/15/21 mcg (50,000 unit) capsule belimumab 200 mg/mL subcutaneous 200 mg SUBCUT QWEEK 05/09/21 05/15/21 auto-injector (Benlysta) Previous Rx's Medication Instructions Recorded hydrocodone 5 mg-acetaminophen 325 1 tab PO Q4-6H PRN #10 tab 05/15/21 mg tablet hyoscyamine sulfate 0.125 mg tablet 0.125 mg PO BID-QID PRN #20 tab 08/02/21 promethazine 12.5 mg rectal 12.5 mg NC Q4-6H PRN #12 each 06/25/21 suppository progesterone micronized 200 mg 200 mg PO BID #60 cap 08/27/21 capsule (Prometrium) ondansetron 4 mg disintegrating 4 mg PO Q6H PRN #10 tab 09/06/21 tablet Allergies Allergy/AdvReac Type Severity Reaction Status Date / Time fentanyl Allergy Severe Unresponsive Verified 06/24/21 21:00 after 50 mcg Review of Systems Review of Systems ROS Unobtainable: All systems reviewed & are unremarkable except as noted in HPI and below Patient History Medical History Anembryonic Ankle pain (~2017) Anxiety (~2018) Closed left ankle fracture Depression (~2018) Fibromyalgia (~2019) Gastritis GERD (gastroesophageal reflux disease) (~2017) Lupus (~2018) Numbness PTSD (post-traumatic stress disorder) (~2019) Rheumatoid arthritis (~2018) Sjogrens syndrome (~2019) SLE (systemic lupus erythematosus) Ulnar neuropathy of both upper extremities Wrist pain Surgical History Anesthesia History of hysteroscopy (11/02/20) History of surgery (04/08/18) Hx of cholecystectomy (~2016) Family History Father No problems noted. Mother No problems noted. Grandfather No problems noted. Grandmother No problems noted. Grandfather No problems noted. Grandmother No problems noted. Social History household members: significant other Smoking Status: Former smoker alcohol intake: current Smoking Status: Former smoker alcohol intake frequency: holidays/special occasions only Substance Use Type: marijuana Exam Narrative Exam Narrative: GENERAL: Alert and oriented x three, female in mild distress. HEENT: Head normocephalic, atraumatic, EOMI, pupils reactive, face symmetric, moist mucous membranes NECK: Supple, full range of motion CARDIOVASCULAR: Regular rate and rhythm without murmurs, rubs or gallops. RESPIRATORY: Breath sounds equal bilaterally, no wheezes rales or rhonchi. ABDOMEN: Soft, nontender lower abdominal tenderness.Normoactive bowel sounds all 4 quadrants. No guarding or rebound, rigidity, no mass. Nondistended. : No CVA tenderness EXTREMITIES: Normal range of motion, no clubbing or edema. Neurovascularly intact NEUROLOGICAL: Cranial nerves II through XII grossly intact. Moving all extremities SKIN: Warm, dry, no petechiae, no rashes or lesions. Initial Vital Signs Initial Vital Signs: Vital Signs Temperature 97.7 F 09/06/21 18:43 Pulse Rate 137 H 09/06/21 18:43 Respiratory Rate 24 09/06/21 18:43 Blood Pressure 142/86 H 09/06/21 18:43 Pulse Oximetry 99 09/06/21 18:43 Course Orders Ordered: Discontinued Medications Sodium Chloride (Normal Saline 0.9%) 1,000 mls @ 1,000 mls/hr IV BOLUS ONE Stop: 09/06/21 21:04 Last Infusion: 09/06/21 21:36 Dose: 0 mls/hr Documented by: Admin: 09/06/21 20:41 Dose: 1,000 mls/hr Documented by: JAVIER Ondansetron HCl (Ondansetron 4 Mg/2 Ml Inj) 4 mg IV NOW ONE Stop: 09/06/21 21:59 Last Admin: 09/06/21 22:03 Dose: 4 mg Documented by: ADRIÁN Ondansetron HCl (Ondansetron 4 Mg Odt Prepack) 1 bottle MIS SEEINSTR ONE Stop: 09/06/21 22:15 Last Admin: 09/06/21 22:32 Dose: 1 bottle Documented by: JAVIER Reevaluation(s) Reevaluation #1: Patient has some nausea but otherwise doing well in the department. We reviewed her imaging and findings today. Plan for watchful waiting. We did note that heart rate was 99 on her ultrasound which is on the lower end. Patient is to establish follow-up with OBGYN in the short term. She was encouraged to return. Suspect she is having some acute worsening of her chronic vomiting and intermittent diarrhea. Patient was tachycardic initially upon arrival but has been appropriate heart rate in the department even prior to fluids. On repeat abdominal exam she is non-tender. Vital Signs Vital signs: Vital Signs - 8 hr 09/06/21 21:45 Pulse Rate 84 Respiratory Rate 16 Blood Pressure 109/62 Pulse Oximetry 100 MDM - Nausea/Vomiting/Diarrhea Lab Data Result diagrams: 09/06/21 20:15 09/06/21 20:15 Labs: Lab Results 09/06/21 09/06/21 09/06/21 Range/Units 19:08 20:15 20:15 WBC 10.0 (4.5-11.0) X10^3/uL RBC 4.29 (4.0-5.2) X10^6/uL Hgb 12.7 (12.0-16.0) g/dL Hct 37.5 (36-46) % MCV 87.5 (80-100) fL MCH 29.6 (26-34) PG MCHC 33.8 (30-36) % RDW 13.5 (11.6-14.8) % Plt Count 310 (150-400) X10^3/uL Neut % (Auto) 67.9 (50-75) % Lymph % (Auto) 26.9 (25-40) % [place] % (Auto) 4.2 (3-14) % Eos % (Auto) 0.3 L (2-4) % Baso % (Auto) 0.7 (0-2) % Neut # (Auto) 6800 (1840-6896) /uL Lymph # (Auto) 2700 (7366-5575) /uL [place] # (Auto) 400 (0-900) /uL Eos # (Auto) 0 (0-450) /uL Baso # (Auto) 100 (0-100) /uL Sodium 138 (137-145) mmol/L Potassium 3.4 (3.4-5.1) mmol/L Chloride 103 (98-107) mmol/L Carbon Dioxide 21 L (22-32) mmol/L BUN 6 L (7-17) mg/dL Creatinine 0.45 L (0.52-1.04) mg/dL Estimated GFR > 60.0 (>60) mL/min BUN/Creatinine Ratio 13.3 (6-22) Glucose 132 H (70-100) mg/dL Calcium 9.3 (8.4-10.2) mg/dL Total Bilirubin 0.4 (0.2-1.3) mg/dL AST 40 H (14-36) IU/L ALT 55 H (<35) IU/L Alkaline Phosphatase 59 (38-126) U/L Total Protein 7.9 (6.3-8.2) g/dL Albumin 4.6 (3.5-5.0) g/dL Globulin 3.3 (1.7-4.1) g/dL Albumin/Globulin Ratio 1.4 (1.0-2.8) HCG, Quant 92352 mIU/mL Urine RBC 1-5/hpf (0-5/HPF) Urine WBC 0-1/hpf (0-5/HPF) Ur Squamous Epith Cells 1-5 /hpf (0-5/HPF) Urine Bacteria None seen (None) Urine Mucus 1+ H (Negative) Ur Culture Indicated? Cult not indicated Blood Type 09/06/21 Range/Units 20:15 WBC (4.5-11.0) X10^3/uL RBC (4.0-5.2) X10^6/uL Hgb (12.0-16.0) g/dL Hct (36-46) % MCV (80-100) fL MCH (26-34) PG MCHC (30-36) % RDW (11.6-14.8) % Plt Count (150-400) X10^3/uL Neut % (Auto) (50-75) % Lymph % (Auto) (25-40) % [place] % (Auto) (3-14) % Eos % (Auto) (2-4) % Baso % (Auto) (0-2) % Neut # (Auto) (4704-7742) /uL Lymph # (Auto) (1372-1416) /uL [place] # (Auto) (0-900) /uL Eos # (Auto) (0-450) /uL Baso # (Auto) (0-100) /uL Sodium (137-145) mmol/L Potassium (3.4-5.1) mmol/L Chloride (98-107) mmol/L Carbon Dioxide (22-32) mmol/L BUN (7-17) mg/dL Creatinine (0.52-1.04) mg/dL Estimated GFR (>60) mL/min BUN/Creatinine Ratio (6-22) Glucose (70-100) mg/dL Calcium (8.4-10.2) mg/dL Total Bilirubin (0.2-1.3) mg/dL AST (14-36) IU/L ALT (<35) IU/L Alkaline Phosphatase (38-126) U/L Total Protein (6.3-8.2) g/dL Albumin (3.5-5.0) g/dL Globulin (1.7-4.1) g/dL Albumin/Globulin Ratio (1.0-2.8) HCG, Quant mIU/mL Urine RBC (0-5/HPF) Urine WBC (0-5/HPF) Ur Squamous Epith Cells (0-5/HPF) Urine Bacteria (None) Urine Mucus (Negative) Ur Culture Indicated? Blood Type O Positive Point of Care Testing Test Results Positive Urine Dip Bedside Urine Glucose Negative Bedside Urine Bilirubin - Negative Bedside Urine Ketone + 15 Urine Specific [place] 1.020 Bedside Urine Occult Blood +/- Bedside Urine pH 6.0 Bedside Urine Protein - Negative Bedside Urine Urobilinogen - Negative Bedside Urine Nitrite - Negative Bedside Urine Leukocytes - Negative Esterase Imaging Data US - OB: Radiologist's Impression: [place] [address] Ultrasound Report Signed Patient: Carlos Cavanaugh MR#: [id number] : 1995 Acct:[id number] Age/Sex: 26 / F Date of Service: 09/06/21 Loc: Accession Number: [id number] ?? Procedure: US OB <= 14 weeks fetus Ordering Provider: Terra Rodrigues D.O. PROCEDURE:? US OB <= 14 WEEKS FETUS ? INDICATIONS:? DUB; POSITIVE TEST ? OUTSIDE/PRIOR DATING DATA:? Last menstrual period (LMP):? 09/03/21.? LMP-based estimated date of delivery (AURA):? 06/10/22.? First dating scan (date and location):? 09/06/21, current study.? Estimated date of delivery (AURA) from first dating scan:? 05/03/22.? ? TECHNIQUE:? Real-time scanning was performed of the fetus and maternal pelvic organs, with image documentation.? Endovaginal scanning was also performed to better visualize the fetus and maternal ovaries.? ? COMPARISON:? [facility], , OB <= 14 WEEKS FETUS, 07/19/2020, 21:33. ? FINDINGS:? ? Embryo:? An intrauterine is present including a single pole with an average crown-rump length of 2.4 mm corresponding to a five week six day plus or minus four days gestation.? There is detectable cardiac activity in the fetus at a rate of 99 beats per minute.? A normal yolk sac is present. Heart rate:? 99 beats per minute. ? Measurement variability in dating:? +/- 4 weeks by LMP, +/- 7 days by mean sac diameter (use before 6 weeks gestation if crown-rump length not able to be measured), +/- 5 days by crown-rump length (up to 8 weeks 6 days gestation), +/- 7 days by crown-rump length (up to 13 weeks 6 days gestation).? ? Maternal organs:? Anteverted anteflexed uterus contains a fundal gestational sac.? The cervix is closed.? No perigestational hemorrhage.? The right ovary contains an involuting corpus luteum.? The left ovary contains a 2.7 cm simple dominant follicle. ? ? IMPRESSION:? 1. Single living intrauterine with a gestational age of five weeks, six days, and sonographically derived due date of 05/03/22. 2. Right ovarian corpus luteum.? Dictated by: Dior Carter M.D. on 09/06/2021 at 21:21 ? ? Approved by: Dior Carter M.D. on 09/06/2021 at 21:25 MDM Narrative Medical decision making narrative: This is a 26-year-old female with complaint of continued vomiting, intermittent diarrhea with constipation and recently developed vaginal bleeding in the past week. Patient's test here today is positive. Ultrasound shows intrauterine although HR is low at 99. Discussed with patient there is potential she may be miscarrying and time with watchful waiting will help delineate. She was tachycardic initially but that improved even before fluids. She has had a chronic vomiting and abdominal issues with a slight elevation chronically of her LFTs which are slightly improved today. Patient has a reassuring abdominal exam. All questions answered patient was encouraged to return. She finds Zofran somewhat helpful and was given a prescription. Discharge Plan Departure Patient Disposition: Home Clinical Impression: Vaginal bleeding during Instructions: DI for Vaginal Bleeding During Activity Restrictions/Additional Instructions: Your labs today show a slight elevation in your liver enzymes which appears chronic and slightly nor than typical. Your labs otherwise are reassuring. Your hCG level today is 34,360, as a single number this does not give us any clear indication about her . On ultrasound your imaging seems consistent with a at close to 6 weeks. Prescription for zofran to [facility] in [place]. With OBGYN this week. Call for an appointment in the morning for recheck and possible repeat US. If you are having rapidly worsening bleeding going through more than a tampon an hour, lightheadedness passing out, new chest pain or shortness of breath, rapidly worsening or new abdominal pain or other new or concerning symptoms please return to the emergency department for recheck. Prescriptions: New ondansetron 4 mg tablet,disintegrating 4 mg PO Q6H PRN (Reason: nausea and vomiting) Qty: 10 RF: 0 No Action progesterone micronized [Prometrium] 200 mg capsule 200 mg PO BID Qty: 60 RF: 2 cholecalciferol (vitamin D3) 1,250 mcg (50,000 unit) capsule 1,250 mcg PO QWEEK RF: 0 Calcium 600 with Vitamin D3 600 mg(1,500mg) -400 unit tablet,chewable 1 tab PO DAILY RF: 0 Benlysta 200 mg/mL auto-injector 200 mg SUBCUT QWEEK RF: 0 hydrocodone-acetaminophen 5-325 mg tablet 1 tab PO Q4-6H PRN (Reason: pain) Qty: 10 RF: 0 hyoscyamine sulfate 0.125 mg tablet 0.125 mg PO BID-QID PRN (Reason: dyspepsia) Qty: 20 RF: 0 promethazine 12.5 mg suppository 12.5 mg NC Q4-6H PRN (Reason: nausea and vomiting) Qty: 12 RF: 0 Referrals: Belen Little MD [Physician] - Carlos Bonner ARNP [Primary Care Provider] -
[2021-09-06 20:20] LABS: Add Manual Diff / Slide Review NO; Basophils Absolute Auto 100 /uL (0-100); Basophils Percent Auto 0.7 % (0-2); Eosinophils Absolute Auto 0 /uL (0-450); Eosinophils Percent Auto 0.3 % (2-4); Hematocrit 37.5 % (36-46); Hemoglobin 12.7 g/dL (12.0-16.0); Lymphocytes Absolute Auto 2700 /uL (1100-4500); Lymphocytes Percent Auto 26.9 % (25-40); Mean Corpuscular HGB Conc 33.8 % (30-36); Mean Corpuscular Hemoglobin 29.6 PG (26-34); Mean Corpuscular Volume 87.5 fL (80-100); Monocytes Absolute Auto 400 /uL (0-900); Monocytes Percent Auto 4.2 % (3-14); Neutrophils Absolute Auto 6800 /uL (1500-7000); Neutrophils Percent Auto 67.9 % (50-75); Platelet Count 310 X10^3/uL (150-400); Red Blood Cell Count 4.29 X10^6/uL (4.0-5.2); Red Cell Distribution Width 13.5 % (11.6-14.8)
[2021-09-06] MEDS: SODIUM CHLORIDE 0.9% 1,000 ML 1000 ML IV (20:41)
[2021-09-06 20:49] LABS: Alanine Aminotransferase 55 IU/L (<35); Albumin 4.6 g/dL (3.5-5.0); Albumin Globulin Ratio 1.4 (1.0-2.8); Alkaline Phosphatase 59 U/L (38-126); Aspartate Aminotransferase 40 IU/L (14-36); BUN Creatinine Ratio 13.3 (6-22); Bilirubin Total 0.4 mg/dL (0.2-1.3); Blood Urea Nitrogen 6 mg/dL (7-17); Calcium 9.3 mg/dL (8.4-10.2); Carbon Dioxide 21 mmol/L (22-32); Chloride 103 mmol/L (98-107); Estimated Glomerular Filt Rate > 60.0 mL/min (>60); Globulin 3.3 g/dL (1.7-4.1); Glucose 132 mg/dL (70-100); HEMOLYSIS < 15 (0-50); Potassium 3.4 mmol/L (3.4-5.1); Sodium 138 mmol/L (137-145); Total Protein 7.9 g/dL (6.3-8.2)
[2021-09-06 21:31] LABS: HCG Quantitative /Beta subunit 34360 mIU/mL
[2021-09-06 21:45] VITALS: BP 109/62; PULSE 84; RESP 16; O2SAT 100
[2021-09-06] MEDS: ONDANSETRON 4 MG/2 ML INJ IV (22:03)
[2021-09-06] MEDS: ONDANSETRON 4 MG ODT PREPACK 1 BOTTLE MISC (22:32)
== END 2021-09-06 22:42 | disposition home or self-care (01) ==
PROVIDERS: Emergency Provider Emergency Medicine; PCP Registered Nurse Diabetes Educator
DX: O20.9 Hemorrhage in early pregnancy, unspecified (principal); Z3A.01 Less than 8 weeks gestation of pregnancy; R00.0 Tachycardia, unspecified
CPT/HCPCS: 36415; 76801; 76817; 80053; 81003; 81015; 81025; 84702; 85025; 86900; 86901; 96361; 96374; 99284; J2405

== ENCOUNTER → 2021-09-08 11:27 | Outpatient (CLI) | payer OTHER, SELFPAY ==
[2021-03-30 10:31] VITALS: BMI 31.1
[2021-09-08 13:25] LABS: HCG Quantitative /Beta subunit 48645 mIU/mL
== END ==
PROVIDERS: PCP Registered Nurse Diabetes Educator; Referring Provider Specialist; Visit Provider Specialist
DX: O20.9 Hemorrhage in early pregnancy, unspecified (principal); N96 Recurrent pregnancy loss
CPT/HCPCS: 36415; 84144; 84702

== ENCOUNTER → 2022-08-19 13:41 | Outpatient (CLI) | payer OTHER, SELFPAY ==
[2021-09-12 08:46] VITALS: BMI 31.1
[2022-08-22 13:36] LABS: QuantiFERON Mitogen Value >10.00 IU/mL (.); QuantiFERON Nil Value 0.12 IU/mL (.); QuantiFERON TB Gold Plus Negative (Negative); QuantiFERON TB1 Ag Value 0.19 IU/mL (.); QuantiFERON TB2 Ag Value 0.15 IU/mL (.)
== END ==
PROVIDERS: PCP Registered Nurse Diabetes Educator; Referring Provider Internal Medicine; Visit Provider Internal Medicine
DX: Z79.899 Other long term (current) drug therapy (principal)
CPT/HCPCS: 36415; 86480

== ENCOUNTER → 2022-12-19 12:30 | Outpatient (CLI) | payer OTHER, SELFPAY ==
[2021-09-12 08:46] VITALS: BMI 31.1
--- NOTE | 2022-12-19 12:31 | DI.RAD.S_ITS ---
PROCEDURE: XR KNEE RT 3V INDICATIONS: right knee pain TECHNIQUE: 3 views of the knee were acquired. COMPARISON: None. FINDINGS: Bones: No fractures or dislocations. No suspicious bony lesions. Soft tissues: No joint effusion. No suspicious soft tissue calcifications. IMPRESSION: No acute finding. Dictated by: Kamaljit Link M.D. on 12/19/2022 at 18:47 Approved by: Kamaljit Link M.D. on 12/19/2022 at 18:47
== END ==
PROVIDERS: PCP Registered Nurse Diabetes Educator; Referring Provider Nurse Practitioner Family; Visit Provider Nurse Practitioner Family
DX: M06.9 Rheumatoid arthritis, unspecified (principal); M25.561 Pain in right knee
CPT/HCPCS: 73562

== ENCOUNTER → 2023-08-06 12:38 | Outpatient (CLI) | payer OTHER, SELFPAY ==
[2021-09-12 08:46] VITALS: BMI 31.1
--- NOTE | 2023-08-06 | DI.RAD.S_ITS ---
PROCEDURE: XR HIP W PEL IF DONE GÓMEZ MIN 4V INDICATIONS: BILATERAL HIP PAIN TECHNIQUE: AP pelvis with lateral view(s) of the right and left hip(s). COMPARISON: None. FINDINGS: Bones: No fractures or dislocations. Pelvic ring appears intact. No suspicious bony lesions. Soft tissues: The visualized bowel gas pattern is normal. No suspicious soft tissue calcifications. IMPRESSION: No acute fracture or dislocation identified. If symptoms persist, follow-up radiographs and/or CT or MRI may be helpful for further evaluation. Dictated by: Abram Seals M.D. on 08/07/2023 at 11:23 Approved by: Abram Seals M.D. on 08/07/2023 at 11:25
[2023-08-06 13:43] LABS: Add Manual Diff / Slide Review NO; Basophils Absolute Auto 100 /uL (0-100); Basophils Percent Auto 0.7 % (0-2); Eosinophils Absolute Auto 200 /uL (0-450); Hematocrit 37.5 % (36-46); Lymphocytes Absolute Auto 3300 /uL (1100-4500); Lymphocytes Percent Auto 39.7 % (25-40); Mean Corpuscular HGB Conc 34.7 % (30-36); Mean Corpuscular Hemoglobin 30.3 PG (26-34); Mean Corpuscular Volume 87.4 fL (80-100); Monocytes Absolute Auto 500 /uL (0-900); Monocytes Percent Auto 5.5 % (3-14); Neutrophils Absolute Auto 4300 /uL (1500-7000); Neutrophils Percent Auto 52.1 % (50-75); Platelet Count 305 X10^3/uL (150-400); Red Blood Cell Count 4.29 X10^6/uL (4.0-5.2); Red Cell Distribution Width 13.2 % (11.6-14.8); White Blood Cell Count 8.3 X10^3/uL (4.5-11.0)
[2023-08-06 14:01] LABS: Alanine Aminotransferase 26 IU/L (<35); Albumin 4.6 g/dL (3.5-5.0); Albumin Globulin Ratio 1.2 (1.0-2.8); Alkaline Phosphatase 66 U/L (38-126); Aspartate Aminotransferase 26 IU/L (14-36); Bilirubin Total 0.6 mg/dL (0.2-1.3); Blood Urea Nitrogen 12 mg/dL (7-17); Calcium 8.9 mg/dL (8.4-10.2); Carbon Dioxide 23 mmol/L (22-32); Chloride 105 mmol/L (98-107); Estimated Glomerular Filt Rate > 60 mL/min (>60); Globulin 3.8 g/dL (1.7-4.1); Glucose 67 mg/dL (70-100); HEMOLYSIS < 15 (0-50); Sodium 138 mmol/L (137-145); Total Protein 8.4 g/dL (6.3-8.2)
[2023-08-06 14:04] LABS: Erythrocyte Sedimentation Rate 11 MM/HR (0-20)
[2023-08-11 16:27] LABS: Alpha 1 Globulin 0.2 g/dL (0.0-0.4); Alpha 2 Globulin 0.7 g/dL (0.4-1.0); Gamma Globulin 1.7 g/dL (0.4-1.8); Protein, Total 7.5 g/dL (6.0-8.5)
== END ==
PROVIDERS: PCP Registered Nurse Diabetes Educator; Referring Provider Internal Medicine; Visit Provider Internal Medicine
DX: M35.9 Systemic involvement of connective tissue, unspecified (principal)
CPT/HCPCS: 36415; 73522; 80053; 84155; 84165; 85025; 85651

== ENCOUNTER → 2023-10-12 13:23 | Outpatient (CLI) | payer OTHER, SELFPAY ==
[2021-09-12 08:46] VITALS: BMI 31.1
== END ==
PROVIDERS: PCP Registered Nurse Diabetes Educator; Visit Provider Nurse Practitioner Family
DX: T14.8XXA Other injury of unspecified body region, initial encounter (principal)
CPT/HCPCS: 87070; 87075; 87077; 87147; 87186; 87205

== ENCOUNTER 2023-10-23 | Emergency (ER) | payer OTHER, SELFPAY ==
[2021-09-12 08:46] VITALS: BMI 31.1
[2023-10-23 00:05] VITALS: BP 151/82
[2023-10-23 00:06] VITALS: PULSE 104; RESP 18; O2SAT 100
[2023-10-23 00:08] VITALS: BP 151/82; PULSE 102; RESP 16; TEMP 37.1; O2SAT 100; BMI 26.4
--- NOTE | 2023-10-23 00:22 | DI.CT.S_ITS ---
PROCEDURE: CT ABDOMEN PELVIS W CON INDICATIONS: RLQ pain TECHNIQUE: After the administration of oral and IV contrast, axial sections were acquired from the lung bases to the pubic symphysis. Coronal and sagittal reformats were performed. For radiation dose reduction, the following was used: automated exposure control, adjustment of mA and/or kV according to patient size. COMPARISON: [facility], CT, CT ABDOMEN PELVIS W CON, 06/25/2021, 1:16. FINDINGS: Image quality: Excellent. Lung bases: Unremarkable. Heart: No significant findings. ABDOMEN: Liver: No solid mass. Gallbladder: Absent. Biliary ducts: No biliary dilation. Pancreas: No ductal dilation. Spleen: Size is within normal limits. Adrenal Glands: No adrenal nodules. Kidneys and Ureters: No hydronephrosis. No solid mass. No complex renal cystic lesion which requires follow up. Stomach and Bowel: Normal colonic caliber, without significant wall thickening. The appendix is not dilated. There is air within the appendiceal lumen, (4/28). Peritoneum: No abnormal intraperitoneal fluid. No free air. Ventral Wall: No hernia. Abdominal Nodes: No retroperitoneal or mesenteric adenopathy by size criteria. Vessels: Aorta and inferior vena cava are normal in size. PELVIS: Pelvic Organs: Fullness in the right adnexal region. Suspect right ovarian cyst. Uterus is retroverted. There is a small amount of free fluid in the pelvic cul-de-sac. Bladder: Not distended. No stone. Pelvic Nodes: No enlarged lymph nodes. Miscellaneous: No inguinal hernias are seen. Bones: No suspicious osseous lesion. IMPRESSION: 1. The appendix is not dilated. 2. Fullness in the right adnexal region. Possible right ovarian cyst. Trace free fluid in the pelvic cul-de-sac. 3. No bowel obstruction. Post cholecystectomy. Dictated by: Facundo Dye M.D. on 10/23/2023 at 1:09 Approved by: Facundo Dye M.D. on 10/23/2023 at 1:15
[2023-10-23 00:27] LABS: Appearance Urine UA CLEAR; Bilirubin Urine UA NEGATIVE (NEGATIVE); Color Urine UA YELLOW; Glucose Urine UA NEGATIVE (Negative); Ketones Urine UA NEGATIVE (NEGATIVE); Leukocyte Esterase Urine UA NEGATIVE (NEGATIVE); Nitrite Urine UA NEGATIVE (Negative); Occult Blood Urine UA NEGATIVE (Negative); Protein Urine UA NEGATIVE (Negative); Urobilinogen Urine UA 0.2 E.U./dL (0.2)
[2023-10-23 00:28] LABS: Pregnancy Test Urine Negative (Negative)
[2023-10-23] MEDS: SODIUM CHLORIDE 0.9% 1,000 ML 150 ML IV (00:32)
[2023-10-23] MEDS: KETOROLAC 30 MG/ML VIAL IV (00:33)
[2023-10-23] MEDS: ONDANSETRON 4 MG/2 ML INJ IV (00:33)
[2023-10-23 00:34] LABS: pH Urine UA 7.5 (4.5-8.0)
[2023-10-23 00:35] LABS: Bacteria Urine None Seen; Culture Indicated Urine Cult Not Indicated; RBC Urine None Seen (0-5/HPF); Squamous Epithelial Cell Urine 0-1 /HPF (0-5/HPF); WBC Urine None Seen (0-5/HPF)
[2023-10-23 00:40] LABS: Alanine Aminotransferase 31 IU/L (<35); Albumin 4.6 g/dL (3.5-5.0); Albumin Globulin Ratio 1.3 (1.0-2.8); Alkaline Phosphatase 60 U/L (38-126); Aspartate Aminotransferase 33 IU/L (14-36); Bilirubin Total 0.6 mg/dL (0.2-1.3); Blood Urea Nitrogen 12 mg/dL (7-17); Calcium 9.3 mg/dL (8.4-10.2); Carbon Dioxide 29 mmol/L (22-32); Chloride 105 mmol/L (98-107); Estimated Glomerular Filt Rate > 60 mL/min (>60); Globulin 3.6 g/dL (1.7-4.1); Glucose 97 mg/dL (70-100); HEMOLYSIS 18 (0-50); Lipase 126 U/L (23-300); Potassium 3.9 mmol/L (3.4-5.1); Sodium 140 mmol/L (137-145); Total Protein 8.2 g/dL (6.3-8.2)
[2023-10-23 00:46] LABS: Add Manual Diff / Slide Review NO; Basophils Absolute Auto 100 /uL (0-100); Basophils Percent Auto 0.5 % (0-2); Eosinophils Absolute Auto 100 /uL (0-450); Eosinophils Percent Auto 0.6 % (2-4); Hematocrit 36.6 % (36-46); Hemoglobin 12.7 g/dL (12.0-16.0); Lymphocytes Absolute Auto 3800 /uL (1100-4500); Lymphocytes Percent Auto 33.8 % (25-40); Mean Corpuscular HGB Conc 34.7 % (30-36); Mean Corpuscular Hemoglobin 30.2 PG (26-34); Mean Corpuscular Volume 87.2 fL (80-100); Monocytes Absolute Auto 600 /uL (0-900); Monocytes Percent Auto 5.4 % (3-14); Neutrophils Absolute Auto 6600 /uL (1500-7000); Neutrophils Percent Auto 59.7 % (50-75); Platelet Count 302 X10^3/uL (150-400); Red Cell Distribution Width 13.3 % (11.6-14.8); White Blood Cell Count 11.1 X10^3/uL (4.5-11.0)
--- NOTE | 2023-10-23 01:02 | ED_ITS ---
HPI - Abdominal Pain General Chief Complaint: Abdominal Pain Stated Complaint: rt side abd pain Time Seen by Provider: 10/23/23 00:07 Source: patient Mode of arrival: Ambulatory History of Present Illness HPI narrative: Young healthy patient reports to the ED with 2 or 3 days of right lower quadrant abdominal pain. She is also constipated. Nausea but no vomiting. No fever. Pain is quite severe in the right lower quadrant. Remote history of cholecystectomy. She does not believe she is currently . She has chronic health conditions including rheumatoid arthritis and lupus. She currently takes certolizumab pegol as a biologic agent for her lupus. Related Data Home Medications Medication Instructions Recorded Confirmed prenat.vits,fang,[id number] 1 tab PO DAILY 09/17/21 09/15/23 certolizumab pegol 400 mg/2 mL 200 mg SUBCUT Q2W 12/19/22 09/15/23 (200 mg/mL x2) subcutaneous syringe kit (Cimzia) prednisone 5 mg tablet 5 mg PO DAILY PRN 09/11/23 09/15/23 Previous Rx's Medication Instructions Recorded mupirocin 2 % topical ointment 1 applic topical TID #15 grams 10/12/23 Allergies Allergy/AdvReac Type Severity Reaction Status Date / Time fentanyl Allergy Severe Unresponsive Verified 10/12/23 13:08 after 50 mcg Patient History Medical History depression COVID-19 (~06/2021) Vaginal bleeding during (~09/06/21) Anembryonic (~2020) Lupus (~2018) Substance abuse (~2019) Ankle pain (~2016) GERD (gastroesophageal reflux disease) (~2016) Idiosyncratic reaction to medication after proper dose (~10/2019) Ulnar neuropathy of both upper extremities Fibromyalgia (~2018) SLE (systemic lupus erythematosus) (~2018) Rheumatoid arthritis (~2019) Sjogrens syndrome (~2018) PTSD (post-traumatic stress disorder) (~2019) Anxiety (~2018) Depression (~2017) Numbness Gastritis (~2018) Closed left ankle fracture Surgical History [place] teeth extracted (~2008) History of hysteroscopy (11/02/20) Anesthesia History of surgery (04/08/18) Hx of cholecystectomy (~2017) Family History Father Diabetes mellitus Mother No problems noted. Grandfather No problems noted. Grandmother No problems noted. Grandfather Family estrangement Grandmother Unknown whether patient has any health problems Sister Down syndrome Brother ADHD (attention deficit hyperactivity disorder) Social History marital status: unmarried,living together number of children: 0 household members: significant other lives independently: Yes caregiver/support person: No pets and animals: Yes (1 dog: safe ) education level: college (Some college, general ed. ) occupational status: unemployed current occupational exposures/hazards: No special brennan needs: No seatbelt use: always do you feel safe at home: Yes Smoking Status: Former smoker Tobacco: How many years used: 5 quit status: quit date established (Quit cigs early 2020, quit vaping 07/2021. ) alcohol intake: current substance use type: marijuana (Stopped w/ . ) during the past year weight has: decreased > 10 lbs (30 lb loss since June: N/V with . ) well-balanced diet: rarely or never daily servings fruits/ve-1 caffeine: No Type(s) of exercise: normal ROM and activity (Plays with dog daily. ) frequency: does not exercise Smoking Status: Former smoker alcohol intake frequency: holidays/special occasions only Substance Use Type: marijuana Exam Narrative Exam Narrative: GENERAL: Alert, cooperative and in no distress. HEAD: Atraumatic. Normocephalic. EYES: Sclera are clear without icterus. Extraocular movements are full. ENT: No rhinorrhea. Oropharynx is moist. Mouth exam is benign. NECK: Supple. Full range of motion. CARDIOVASCULAR: Normal rate and rhythm without murmur gallop or rub. RESPIRATORY: Clear to auscultation. Breath sounds equal bilaterally. No wheezes, rales, or rhonchi. GASTROINTESTINAL: Guarding at McBurney's point. Psoas sign positive. She has guarding and rebound with exquisite tenderness in the right lower quadrant. EXTREMITIES: No edema, full range of motion. No obvious trauma. BACK: Normal inspection, no CVA tenderness. NEURO: Nonfocal examination, normal speech, normal gait. SKIN: No rash or erythema of visible areas PSYCH: Normally oriented. Normal range of affect. Appropriate behavior Initial Vital Signs Initial Vital Signs: Vital Signs Blood Pressure 151/82 H 10/23/23 00:05 Course Orders Ordered: ED Orders 10/23/23 00:10 Test Urine Stat Urinalysis and Microscopic Stat 10/23/23 00:20 Complete Blood Count AUTO DIFF Stat Comprehensive Metabolic Panel Stat Lipase Stat 10/23/23 00:22 CT abdomen pelvis w con Stat Sodium Chloride (Normal Saline 0.9%) 1,000 mls @ 150 mls/hr IV CONT EMERY Last Admin: 10/23/23 00:32 Dose: 150 mls/hr Documented By: JILLIAN Ondansetron HCl (Ondansetron 4 Mg Odt) 4 mg PO NOW PRN PRN Reason: Nausea And Vomiting Ondansetron HCl (Ondansetron 4 Mg/2 Ml Inj) 4 mg IV NOW PRN PRN Reason: Nausea And Vomiting Discontinued Medications Ketorolac Tromethamine (Ketorolac 30 Mg/Ml Vial) 30 mg IV NOW ONE Stop: 10/23/23 00:23 Last Admin: 10/23/23 00:33 Dose: 30 mg Documented By: JILLIAN Ondansetron HCl (Ondansetron 4 Mg/2 Ml Inj) 4 mg IV NOW ONE Stop: 10/23/23 00:23 Last Admin: 10/23/23 00:33 Dose: 4 mg Documented By: JILLIAN Vital Signs Vital signs: Vital Signs - 8 hr 10/23/23 00:05 10/23/23 00:06 10/23/23 00:08 Temperature 98.8 F Pulse Rate 104 H 102 H Respiratory Rate 18 16 Blood Pressure 151/82 H 151/82 H Pulse Oximetry 100 100 Oxygen Delivery Method Room Air MDM - Abdominal Pain Lab Data 10/23/23 00:20 10/23/23 00:20 Labs: Lab Results 10/23/23 10/23/23 Range/Units 00:10 00:20 WBC 11.1 H (4.5-11.0) X10^3/uL RBC 4.20 (4.0-5.2) X10^6/uL Hgb 12.7 (12.0-16.0) g/dL Hct 36.6 (36-46) % MCV 87.2 (80-100) fL MCH 30.2 (26-34) PG MCHC 34.7 (30-36) % RDW 13.3 (11.6-14.8) % Plt Count 302 (150-400) X10^3/uL Neut % (Auto) 59.7 (50-75) % Lymph % (Auto) 33.8 (25-40) % [place] % (Auto) 5.4 (3-14) % Eos % (Auto) 0.6 L (2-4) % Baso % (Auto) 0.5 (0-2) % Neut # (Auto) 6600 (5361-9465) /uL Lymph # (Auto) 3800 (4182-9280) /uL [place] # (Auto) 600 (0-900) /uL Eos # (Auto) 100 (0-450) /uL Baso # (Auto) 100 (0-100) /uL Sodium 140 (137-145) mmol/L Potassium 3.9 (3.4-5.1) mmol/L Chloride 105 (98-107) mmol/L Carbon Dioxide 29 (22-32) mmol/L BUN 12 (7-17) mg/dL Creatinine 0.60 (0.52-1.04) mg/dL Estimated GFR > 60 (>60) mL/min BUN/Creatinine Ratio 20.0 (6-22) Glucose 97 (70-100) mg/dL Calcium 9.3 (8.4-10.2) mg/dL Total Bilirubin 0.6 (0.2-1.3) mg/dL AST 33 (14-36) IU/L ALT 31 (<35) IU/L Alkaline Phosphatase 60 (38-126) U/L Total Protein 8.2 (6.3-8.2) g/dL Albumin 4.6 (3.5-5.0) g/dL Globulin 3.6 (1.7-4.1) g/dL Albumin/Globulin Ratio 1.3 (1.0-2.8) Lipase 126 (23-300) U/L Urine Color Yellow Urine Appearance Clear Urine pH 7.5 (4.5-8.0) Ur Specific [place] 1.010 (1.000-1.035) Urine Protein Negative (Negative) Urine Glucose (UA) Negative (Negative) g/dL Urine Ketones Negative (NEGATIVE) Urine Occult Blood Negative (Negative) Urine Nitrate Negative (Negative) Urine Bilirubin Negative (NEGATIVE) Urine Urobilinogen 0.2 (0.2) E.U./dL Ur Leukocyte Esterase Negative (NEGATIVE) Urine RBC None seen (0-5/HPF) Urine WBC None seen (0-5/HPF) Ur Squamous Epith Cells 0-1 /hpf (0-5/HPF) Urine Bacteria None seen (None) Ur Culture Indicated? Cult not indicated Urine Test Negative (Negative) MDM Narrative Medical decision making narrative: Surprisingly, her CT shows no evidence of appendicitis. Possible ovarian cyst. No evidence of intra-abdominal hemorrhage. Her vital signs are normal and her laboratory data is remarkable only for very minimal leukocytosis. I think watchful waiting is safe and appropriate for the short term. See discharge instructions for the information I shared with the patient. I did make it clear that there could be early appendicitis simply not identified at this point but there is nothing more to do for the moment other than let time go by for the next hours to see what will develop. I also warned her about signs and symptoms of hemorrhagic ovarian cysts and made it very clear to her that she needs follow-up within 24-48 hours if the symptoms are not dramatically improved and sooner if worse. Discharge Plan Departure Patient Disposition: Home Clinical Impression: Abdominal pain, acute Instructions: Acute Abdominal Pain Activity Restrictions/Additional Instructions: no obvious explanation for your pain is identified on detailed evaluation today. There is some suggestion of ovarian cyst enlargement which sometimes can cause pain like this. No evidence of appendicitis on the CT scan. I recommend a laxative like MiraLax which is a powder you mixed withWater once a day. I also recommend Tylenol 1000 mg taken together with ibuprofen 600 mg every 6 hours as needed for pain. Return to the ED if the pain is too severe to manageWith this treatment or if you have repeated vomiting and especially if you have fever associated with abdominal pain. If the pain persists, you need to see your doctor in the next 1 or 2 days for a follow-up check. It is always possible that you have early appendicitis or some other condition that is too early to be identified on detailed evaluation like we have done today so it is very important that you follow-up if symptoms are getting worse or not resolving. Prescriptions: No Action mupirocin 2 % ointment 1 applic topical TID Qty: 15 0RF prenat.vits,fang,[id number] Tablet 1 tab PO DAILY Cimzia 400 mg/2 mL (200 mg/mL x 2) syringe kit 200 mg SUBCUT Q2W prednisone 5 mg tablet 5 mg PO DAILY PRN Referrals: Carlos Bonner ARNP [Primary Care Provider] - Stand Alone Forms: Patient Portal/API
[2023-10-23 01:39] VITALS: BP 124/75; PULSE 76; RESP 20; TEMP 36.9; O2SAT 99
== END 2023-10-23 01:40 | disposition home or self-care (01) ==
PROVIDERS: Emergency Provider Family Medicine Addiction Medicine; PCP Registered Nurse Diabetes Educator
DX: R10.9 Unspecified abdominal pain (principal); Z87.891 Personal history of nicotine dependence
CPT/HCPCS: 36415; 74177; 80053; 81001; 81025; 83690; 85025; 96361; 96374; 96375; 96376; 99284; J1885; J2405; Q9967

== ENCOUNTER → 2023-11-15 13:39 | Outpatient (CLI) | payer OTHER, SELFPAY ==
[2021-09-12 08:46] VITALS: BMI 31.1
[2023-11-15 14:32] LABS: Influenza A - CEPHEID Flu A POSITIVE (NEGATIVE); Influenza B - CEPHEID Flu B NEGATIVE (NEGATIVE); Respiratory Syncytial Virus Negative (Negative)
[2023-11-15 15:31] LABS: COVID-19 CEPHEID 4-PLEX PCR Negative (Negative)
== END ==
PROVIDERS: PCP Registered Nurse Diabetes Educator; Visit Provider Nurse Practitioner Family
DX: R05.1 Acute cough (principal); J02.9 Acute pharyngitis, unspecified; R50.9 Fever, unspecified
CPT/HCPCS: 0241U; 87070; 87077

== ENCOUNTER → 2023-12-25 13:46 | Outpatient (CLI) | payer OTHER, SELFPAY ==
[2021-09-12 08:46] VITALS: BMI 31.1
[2023-12-25 20:34] LABS: Urine N gonorrhoeae NOT DETECTED
[2023-12-25 20:35] LABS: Urine Chlamydia NOT DETECTED
== END ==
PROVIDERS: PCP Registered Nurse Diabetes Educator; Visit Provider Specialist
DX: Z34.81 Encounter for supervision of other normal pregnancy, first trimester (principal); Z3A.09 9 weeks gestation of pregnancy
CPT/HCPCS: 87491; 87591

== ENCOUNTER → 2024-01-02 13:47 | Outpatient (CLI) | payer OTHER, SELFPAY ==
[2021-09-12 08:46] VITALS: BMI 31.1
[2024-01-02 14:49] LABS: Add Manual Diff / Slide Review NO; Basophils Absolute Auto 0 /uL (0-100); Basophils Percent Auto 0.3 % (0-2); Eosinophils Absolute Auto 100 /uL (0-450); Eosinophils Percent Auto 1.5 % (2-4); Hematocrit 35.6 % (36-46); Hemoglobin 12.4 g/dL (12.0-16.0); Lymphocytes Absolute Auto 3700 /uL (1100-4500); Lymphocytes Percent Auto 40.1 % (25-40); Mean Corpuscular HGB Conc 34.7 % (30-36); Mean Corpuscular Hemoglobin 30.7 PG (26-34); Mean Corpuscular Volume 88.5 fL (80-100); Monocytes Absolute Auto 500 /uL (0-900); Monocytes Percent Auto 5.7 % (3-14); Neutrophils Absolute Auto 4800 /uL (1500-7000); Neutrophils Percent Auto 52.4 % (50-75); Platelet Count 322 X10^3/uL (150-400); Red Blood Cell Count 4.02 X10^6/uL (4.0-5.2); Red Cell Distribution Width 14.2 % (11.6-14.8); White Blood Cell Count 9.2 X10^3/uL (4.5-11.0)
[2024-01-02 15:24] LABS: Alanine Aminotransferase 20 IU/L (<35); Aspartate Aminotransferase 21 IU/L (14-36); BUN Creatinine Ratio 15.9 (6-22); Blood Urea Nitrogen 7 mg/dL (7-17); Estimated Glomerular Filt Rate > 60 mL/min (>60); Uric Acid 2.9 mg/dL (2.5-6.2)
[2024-01-04 05:11] LABS: RPR Screen Non Reactive (Non Reactive)
[2024-01-05 14:12] LABS: Varicella IgG Antibody 1977 index (Immune >165)
[2024-01-05 15:29] LABS: Hepatitis B Surface Antigen NEGATIVE s/c (NEGATIVE); Rubella Antibody IgG 65.4 IU/mL (>15)
[2024-01-05 15:46] LABS: HIV 1 & 2 Ab/Ag 4th Gen Combo NEGATIVE (NEGATIVE); Hep C Virus Ab w/Reflex Quant NEGATIVE s/c (NEGATIVE)
== END ==
PROVIDERS: PCP Registered Nurse Diabetes Educator; Referring Provider Obstetrics & Gynecology; Visit Provider Obstetrics & Gynecology
DX: Z34.81 Encounter for supervision of other normal pregnancy, first trimester (principal); O09.299 Supervision of pregnancy with other poor reproductive or obstetric history, unspecified trimester; Z34.80 Encounter for supervision of other normal pregnancy, unspecified trimester
CPT/HCPCS: 36415; 80055; 82565; 84450; 84460; 84520; 84550; 86787; 86803; 86850; 86900; 86901; 87086; 87389

== ENCOUNTER → 2024-01-28 10:14 | Outpatient (CLI) | payer OTHER, SELFPAY ==
[2021-09-12 08:46] VITALS: BMI 31.1
[2024-01-30 21:08] LABS: Gest Age on Col Date 16.1 weeks (.); Gestational Age EDD (.); Insulin Dep Diabetes No (.); OSBR Risk 1IN 10000 (.); Results Report (.); Test Results *Screen Negative* (.)
== END ==
LOC: LAB 10:16
PROVIDERS: PCP Registered Nurse Diabetes Educator; Referring Provider Obstetrics & Gynecology; Visit Provider Obstetrics & Gynecology
DX: Z34.82 Encounter for supervision of other normal pregnancy, second trimester (principal); Z3A.16 16 weeks gestation of pregnancy
CPT/HCPCS: 36415; 82105

== ENCOUNTER → 2024-02-25 09:52 | Outpatient (CLI) | payer OTHER, SELFPAY ==
[2021-09-12 08:46] VITALS: BMI 31.1
--- NOTE | 2024-02-25 10:30 | DI.US.S_ITS ---
PROCEDURE: US OB >= 14 WEEKS FETUS INDICATIONS: 20 Week Anatomy Scan OUTSIDE/PRIOR DATING DATA: Last menstrual period (LMP): Not listed. LMP-based estimated date of delivery (AURA): 07/27/2024. First dating scan (date and location): 12/25/2023. Estimated date of delivery (AURA) from first dating scan: 07/13/2024 The calculations are made using the ultrasound AURA of 07/13/2024. TECHNIQUE: Real-time scanning was performed of the fetus, with image documentation and biometric measurements. Endovaginal scanning: Not performed COMPARISON: [facility], , US OB <= 14 WEEKS FETUS, 12/25/2023, 9:55. FINDINGS: General: A single living intrauterine gestation is present. Presentation: Transverse with head to maternal left. Placenta: Placental position is posterior , without previa. Amniotic fluid index: 10.6 cm, normal range is 5-24 cm. Single deepest vertical pocket is 5.5 cm. heart rate: 147 beats per minute. Maternal cervical canal: 4.4 cm long. Normal lower limit is 2.5 cm. biometrics: Biparietal diameter: 4.9 cm, 20 weeks 6 days Head circumference: 18.1 cm, 20 weeks 4 days Abdominal circumference: 17.0 cm, 20 weeks 0 days Femur length: 3.0 cm, 19 weeks 1 day Clinically estimated gestational age: 20 weeks 1 day Composite gestational age from present scan: 20 weeks 5 days Estimated weight and percentile: 371 g, 76th percentile Anatomic survey: Neuro: Ventricles are non-dilated at less than 10 mm. Cisterna magna is normal at 3-11 mm. Cerebellum is normal in size and morphology. Nuchal skin fold: Normal at less than 6 mm between 14-21 weeks gestational age. Face: Nose and lips, facial profile are normal. Spine: Not well seen secondary to position Heart: 4-chambered heart is present, with normal ventricular outflow tracts. Diaphragm: Diaphragm is intact. Stomach: Left-sided stomach is present. Kidneys: No hydronephrosis. Normal is less than 5 mm in 2nd trimester, less than 7 mm in 3rd trimester. Cord: 3-vessel cord has orthotopic insertion. Bladder: Normal in size. Extremities: Right upper extremity not well seen IMPRESSION: 1. Living 2nd trimester intrauterine with no sonographic evidence of complications. 2. Suboptimal visualization of spine and right upper extremity. 3. 2nd trimester anatomy study otherwise within normal limits. Comment: Recommend patient return for limited follow-up ultrasound to better evaluate the spine and right upper extremity. We strive to produce accurate, complete, and clear reports of imaging services. To assist us in improving patient care, this report was composed using standard report templates and voice recognition software. Therefore, it may contain abnormal punctuation, insertions and/or omissions. Occasional wrong-word or sound-alike substitutions may occur. Though we review the report and make efforts to correct it, we do recommend that the report be read carefully in proper context to recognize any text inaccuracies. Dictated by: Ramesh Fang M.D. on 02/25/2024 at 16:05 Approved by: Ramesh Fang M.D. on 02/25/2024 at 16:11
== END ==
PROVIDERS: PCP Registered Nurse Diabetes Educator; Referring Provider Obstetrics & Gynecology; Visit Provider Obstetrics & Gynecology
DX: Z34.82 Encounter for supervision of other normal pregnancy, second trimester (principal); Z3A.20 20 weeks gestation of pregnancy
CPT/HCPCS: 76811

== ENCOUNTER → 2024-03-11 07:48 | Outpatient (CLI) | payer OTHER, SELFPAY ==
[2021-09-12 08:46] VITALS: BMI 31.1
--- NOTE | 2024-03-11 07:49 | DI.US.S_ITS ---
PROCEDURE: US OB FOLLOW UP INDICATIONS: Follow up anatomy scan OUTSIDE/PRIOR DATING DATA: Last menstrual period (LMP): Not documented.. LMP-based estimated date of delivery (AURA): 07/27/2024. First dating scan (date and location): 12/25/2023. Estimated date of delivery (AURA) from first dating scan: 07/13/2024. The calculations are made using the ultrasound AURA of 07/13/2024. TECHNIQUE: Real-time scanning was performed of the fetus, with image documentation. Endovaginal scanning: Not performed. COMPARISON: [facility], OB >= 14 WEEKS FETUS, 02/25/2024, 10:31. FINDINGS: General: A single living intrauterine gestation is present. Presentation: Breech. Placenta: Placental position is posterior, without previa. Amniotic fluid index: 10.9 cm, normal range is 5-24 cm. Single deepest vertical pocket is 3.3 cm. heart rate: 136 beats per minute. Maternal cervical canal: 3.3 cm long. Normal lower limit is 2.5 cm. Closed. Clinically estimated gestational age: 22 weeks 2 days Facial profile, spine, and right upper extremity are within normal limits. No gross abnormality. IMPRESSION: 1. [place] living intrauterine at 22 weeks 2 days based on prior dating. Breech position. 2. Normal placenta and amniotic fluid. 3. Facial profile, spine, right upper extremity are normal. We strive to produce accurate, complete, and clear reports of imaging services. To assist us in improving patient care, this report was composed using standard report templates and voice recognition software. Therefore, it may contain abnormal punctuation, insertions and/or omissions. Occasional wrong-word or sound-alike substitutions may occur. Though we review the report and make efforts to correct it, we do recommend that the report be read carefully in proper context to recognize any text inaccuracies. Dictated by: Facundo Dye M.D. on 03/11/2024 at 14:13 Approved by: Facundo Dye M.D. on 03/11/2024 at 14:18
== END ==
LOC: US 07:48
PROVIDERS: PCP Registered Nurse Diabetes Educator; Referring Provider Specialist; Visit Provider Specialist
DX: Z36.2 Encounter for other antenatal screening follow-up (principal); Z3A.22 22 weeks gestation of pregnancy
CPT/HCPCS: 76816

== ENCOUNTER → 2024-03-28 12:52 | Outpatient (CLI) | payer OTHER, SELFPAY ==
[2021-09-12 08:46] VITALS: BMI 31.1
[2024-03-28 14:05] LABS: Influenza A - CEPHEID Flu A NEGATIVE (NEGATIVE); Influenza B - CEPHEID Flu B NEGATIVE (NEGATIVE); Respiratory Syncytial Virus Negative (Negative)
[2024-03-28 14:07] LABS: COVID-19 CEPHEID 4-PLEX PCR Negative (Negative)
== END ==
PROVIDERS: PCP Registered Nurse Diabetes Educator; Visit Provider Physician Assistant Surgical
DX: J02.9 Acute pharyngitis, unspecified (principal); R05.9 Cough, unspecified
CPT/HCPCS: 0241U; 87070

== ENCOUNTER → 2024-04-02 07:53 | Outpatient (CLI) | payer OTHER, SELFPAY ==
[2021-09-12 08:46] VITALS: BMI 31.1
[2024-04-02 09:18] LABS: Hematocrit 32.5 % (36-46); Hemoglobin 11.1 g/dL (12.0-16.0)
[2024-04-02 09:43] LABS: GTT (PREG) 1 Hour PP 50gm Dose 159 mg/dL (76-139)
== END ==
PROVIDERS: PCP Registered Nurse Diabetes Educator; Referring Provider Specialist; Visit Provider Specialist
DX: Z34.82 Encounter for supervision of other normal pregnancy, second trimester (principal); Z3A.26 26 weeks gestation of pregnancy
CPT/HCPCS: 82950; 85014; 85018

== ENCOUNTER → 2024-04-23 07:58 | Outpatient (CLI) | payer OTHER, SELFPAY ==
[2021-09-12 08:46] VITALS: BMI 31.1
[2024-04-23 09:15] LABS: Glucose Fasting Gestational 91 mg/dL (76-95)
[2024-04-23 09:43] LABS: Glucose 1 Hour Gest 138 mg/dL (76-180)
[2024-04-23 11:11] LABS: Glucose Tol Interp,Gestational INTERPRETATION
[2024-04-23 11:17] LABS: Glucose 2 Hour Gest 148 mg/dL (76-155)
[2024-04-23 13:43] LABS: Glucose 3 Hour Gest 136 mg/dL (76-140)
== END ==
PROVIDERS: PCP Registered Nurse Diabetes Educator; Referring Provider Obstetrics & Gynecology; Visit Provider Obstetrics & Gynecology
DX: O99.810 Abnormal glucose complicating pregnancy (principal)
CPT/HCPCS: 36415; 82951; 82952

== ENCOUNTER 2024-05-19 09:53 | Outpatient (CLI) | payer OTHER, SELFPAY ==
[2021-09-12 08:46] VITALS: BMI 31.1
== END 2024-05-19 10:34 | disposition home or self-care (01) ==
LOC: OB 05-20 08:21
PROVIDERS: PCP Registered Nurse Diabetes Educator; Referring Provider Obstetrics & Gynecology; Visit Provider Obstetrics & Gynecology
DX: O34.219 Maternal care for unspecified type scar from previous cesarean delivery (principal); O26.893 Other specified pregnancy related conditions, third trimester; M06.9 Rheumatoid arthritis, unspecified; Z3A.32 32 weeks gestation of pregnancy
CPT/HCPCS: 59025; G0378; G0379

== ENCOUNTER 2024-05-26 10:04 | Observation (INO) | payer OTHER, SELFPAY ==
[2021-09-12 08:46] VITALS: BMI 31.1
== END 2024-05-26 11:09 | disposition home or self-care (01) ==
PROVIDERS: Admitting Provider Obstetrics & Gynecology; PCP Registered Nurse Diabetes Educator; Referring Provider Obstetrics & Gynecology; Visit Provider Obstetrics & Gynecology
DX: O99.891 Other specified diseases and conditions complicating pregnancy (principal); M06.9 Rheumatoid arthritis, unspecified; Z3A.33 33 weeks gestation of pregnancy
CPT/HCPCS: 59025; G0378; G0379

== ENCOUNTER 2024-06-02 10:06 | Outpatient (CLI) | payer OTHER, SELFPAY ==
[2021-09-12 08:46] VITALS: BMI 31.1
== END 2024-06-02 12:30 | disposition home or self-care (01) ==
LOC: LABOR 10:51 → OB 06-03 12:19
PROVIDERS: PCP Registered Nurse Diabetes Educator; Referring Provider Obstetrics & Gynecology; Visit Provider Obstetrics & Gynecology
DX: O34.219 Maternal care for unspecified type scar from previous cesarean delivery (principal); Z3A.34 34 weeks gestation of pregnancy
CPT/HCPCS: 59025; G0378; G0379

== ENCOUNTER 2024-06-09 10:13 | Outpatient (CLI) | payer OTHER, SELFPAY ==
[2021-09-12 08:46] VITALS: BMI 31.1
--- NOTE | 2024-06-09 10:38 | PM.OBTRLD ---
Visit Information Visit Information Date of evaluation: 06/09/24 Primary OB Provider: Renea Wtats On-call OB Provider: Kristin Murphy Reason for Evaluation: Yes non-stress test Comments/Additional reasons for admission: maternal RA [facility] Medical History depression Anembryonic (~2020) Ankle pain (~2016) Unresponsive episode (~10/2019) Submucous uterine fibroid (~2018) PTSD (post-traumatic stress disorder) (~2019) COVID-19 (~06/2021) Vaginal bleeding during (~09/06/21) Substance abuse (~2019) GERD (gastroesophageal reflux disease) (~2016) Idiosyncratic reaction to medication after proper dose (~10/2019) Numbness Gastritis (~2018) Closed left ankle fracture Surgical History Previous section [place] teeth extracted (~2008) History of hysteroscopy (11/02/20) History of surgery (04/08/18) Hx of cholecystectomy (~2016) Family History Father Diabetes mellitus Mother No problems noted. Grandfather No problems noted. Grandmother No problems noted. Grandfather Family estrangement Grandmother Unknown whether patient has any health problems Sister Down syndrome Brother ADHD (attention deficit hyperactivity disorder) Social History marital status: number of children: 1 household members: spouse and children lives independently: Yes caregiver/support person: Yes housing: house pets and animals: Yes (1 dog) education level: college (Some college, general ed. ) occupational status: unemployed current occupational exposures/hazards: No special brennan needs: No travel history: over 6 months ago seatbelt use: always water heater temp set < 120 deg: Yes working smoke detector in home: Yes fire extinguisher in home: Yes carbon monox detector in home: Yes firearms in home: Yes firearms unloaded and locked: Yes do you feel safe at home: Yes Smoking Status: Former smoker (quit early 2020) Tobacco: How many years used: 5 quit status: quit date established (Quit cigs early 2020, quit vaping 07/2021. ) second hand exposure: Yes ( smokes, not in the house or when pt is in the car with him) alcohol intake: former (quit drinking w/ successful ) substance use type: marijuana (Stopped w/ . ) during the past year weight has: other (below pre-baby weight) well-balanced diet: about half the time daily servings fruits/ve-4 caffeine: No Type(s) of exercise: walking frequency: does not exercise Review of Systems Review of Systems ROS: Yes All systems reviewed with the patient and are negative except as otherwise documented Evaluation Evaluation Baseline heart rate: 130 Variability: Average (6-10) monitor accelerations: Present Monitor Decelerations: Absent Category of Tracing: Reactive Status: Category l Comments: reactive NST Diagnosis, Plan/Disposition Plan/Disposition Plan: continue surveillance as scheduled OB Disposition: home
== END 2024-06-09 10:47 | disposition home or self-care (01) ==
LOC: LABOR 10:42 → OB 06-11 06:39
PROVIDERS: PCP Registered Nurse Diabetes Educator; Referring Provider Obstetrics & Gynecology; Visit Provider Obstetrics & Gynecology
DX: O26.893 Other specified pregnancy related conditions, third trimester (principal); M06.9 Rheumatoid arthritis, unspecified; Z3A.35 35 weeks gestation of pregnancy
CPT/HCPCS: 59025; G0378; G0379

== ENCOUNTER 2024-06-17 10:37 | Outpatient (CLI) | payer OTHER, SELFPAY ==
[2021-09-12 08:46] VITALS: BMI 31.1
== END 2024-06-17 11:08 | disposition home or self-care (01) ==
LOC: LABOR 11:00 → OB 06-21 13:07
PROVIDERS: PCP Registered Nurse Diabetes Educator; Referring Provider Obstetrics & Gynecology; Visit Provider Obstetrics & Gynecology
DX: O34.219 Maternal care for unspecified type scar from previous cesarean delivery (principal); M06.9 Rheumatoid arthritis, unspecified; O26.893 Other specified pregnancy related conditions, third trimester; Z3A.36 36 weeks gestation of pregnancy
CPT/HCPCS: 59025; G0378; G0379

== ENCOUNTER 2024-06-21 13:36 | Outpatient (CLI) | payer OTHER, SELFPAY ==
[2021-09-12 08:46] VITALS: BMI 31.1
--- NOTE | 2024-06-21 14:15 | PM.OBTRLD ---
Visit Information Visit Information Date of evaluation: 06/21/24 Primary OB Provider: Renea Watts On-call OB Provider: Renea Watts Reason for Evaluation: Yes non-stress test non-stress test reason: other (Autoimmune disorder) [facility] Medical History depression Anembryonic (~2020) Ankle pain (~2016) Unresponsive episode (~10/2019) Submucous uterine fibroid (~2018) PTSD (post-traumatic stress disorder) (~2019) COVID-19 (~06/2021) Vaginal bleeding during (~09/06/21) Substance abuse (~2019) GERD (gastroesophageal reflux disease) (~2016) Idiosyncratic reaction to medication after proper dose (~10/2019) Numbness Gastritis (~2018) Closed left ankle fracture Surgical History Previous section [place] teeth extracted (~2008) History of hysteroscopy (11/02/20) History of surgery (04/08/18) Hx of cholecystectomy (~2016) Family History Father Diabetes mellitus Mother No problems noted. Grandfather No problems noted. Grandmother No problems noted. Grandfather Family estrangement Grandmother Unknown whether patient has any health problems Sister Down syndrome Brother ADHD (attention deficit hyperactivity disorder) Social History marital status: number of children: 1 household members: spouse and children lives independently: Yes caregiver/support person: Yes housing: house pets and animals: Yes (1 dog) education level: college (Some college, general ed. ) occupational status: unemployed current occupational exposures/hazards: No special brennan needs: No travel history: over 6 months ago seatbelt use: always water heater temp set < 120 deg: Yes working smoke detector in home: Yes fire extinguisher in home: Yes carbon monox detector in home: Yes firearms in home: Yes firearms unloaded and locked: Yes do you feel safe at home: Yes Smoking Status: Former smoker (quit early 2020) Tobacco: How many years used: 5 quit status: quit date established (Quit cigs early 2020, quit vaping 07/2021. ) second hand exposure: Yes ( smokes, not in the house or when pt is in the car with him) alcohol intake: former (quit drinking w/ successful ) substance use type: marijuana (Stopped w/ . ) during the past year weight has: other (below pre-baby weight) well-balanced diet: about half the time daily servings fruits/ve-4 caffeine: No Type(s) of exercise: walking frequency: does not exercise Evaluation Evaluation Baseline heart rate: 148 Variability: Moderate (11-25) monitor accelerations: Present Monitor Decelerations: Variable Category of Tracing: Reactive Diagnosis, Plan/Disposition Plan/Disposition Plan: Assessment: 28-year-old 5 para 1 at 36+ 6 weeks' gestation Autoimmune disorders including rheumatoid arthritis, Sjogren's, and lupus Reactive nonstress test Scheduled for repeat section on June 25, 2024 Plan: Follow-up for scheduled OB appointment and preop
== END 2024-06-21 14:20 | disposition home or self-care (01) ==
LOC: LABOR 13:46 → OB 06-23 09:19
PROVIDERS: PCP Registered Nurse Diabetes Educator; Referring Provider Obstetrics & Gynecology; Visit Provider Obstetrics & Gynecology
DX: O26.893 Other specified pregnancy related conditions, third trimester (principal); M06.9 Rheumatoid arthritis, unspecified; M35.00 Sjogren syndrome, unspecified; M32.9 Systemic lupus erythematosus, unspecified; Z3A.36 36 weeks gestation of pregnancy
CPT/HCPCS: 59025; 87653; G0378; G0379

== ENCOUNTER 2024-06-25 06:07 | Inpatient (IN) | payer OTHER, SELFPAY ==
[2021-09-12 08:46] VITALS: BMI 31.1
[2024-06-25] VITALS (7 sets, daily range): BP systolic 90–109; BP diastolic 37–62; PULSE 62–77; RESP 15–21; TEMP 36.6–37.1; O2SAT 95–98
[2024-06-25 06:56] LABS: Add Manual Diff / Slide Review NO; Basophils Absolute Auto 0 /uL (0-100); Basophils Percent Auto 0.4 % (0-2); Eosinophils Absolute Auto 100 /uL (0-450); Eosinophils Percent Auto 1.3 % (2-4); Hematocrit 36.1 % (36-46); Hemoglobin 12.4 g/dL (12.0-16.0); Lymphocytes Absolute Auto 2800 /uL (1100-4500); Lymphocytes Percent Auto 32.1 % (25-40); Mean Corpuscular HGB Conc 34.4 % (30-36); Mean Corpuscular Hemoglobin 31.3 PG (26-34); Mean Corpuscular Volume 90.8 fL (80-100); Monocytes Absolute Auto 600 /uL (0-900); Monocytes Percent Auto 6.7 % (3-14); Neutrophils Absolute Auto 5200 /uL (1500-7000); Neutrophils Percent Auto 59.5 % (50-75); Platelet Count 208 X10^3/uL (150-400); Red Blood Cell Count 3.98 X10^6/uL (4.0-5.2); Red Cell Distribution Width 13.9 % (11.6-14.8); White Blood Cell Count 8.7 X10^3/uL (4.5-11.0)
[2024-06-25] MEDS: LACTATED RINGERS 1,000 ML 42 ML IV ×2 (07:09→08:20)
--- NOTE | 2024-06-25 07:47 | P.HPOB_ITS ---
OB HPI Date/Time Date of admission: 06/25/24 Date Patient Seen: 06/25/24 Time Patient Seen: 07:48 History of Present Condition Chief complaint: INPT AURA Calculator 2 Estimated Delivery Date Method Current WG Current Estimate 07/13/24 Ultrasound #1 37w 3d Other Estimates 07/27/24 Conception 35w 3d Estimated Gestational Age (weeks): 37+3 : 5 Para: 1 care: good care, initiated at week # (11), number of visits (9) and pounds weight gain (39) Dating criteria OB: LMP confirmed by 1st trimester US Ultrasounds: normal 1st trimester US and normal mid trimester US Obstetrical complications: none and other (Elevated 1 hour glucose, normal 3 hour) Medical complications OB: immunologic (SLE, RA) and other (Recurrent loss) Indications Operative indications ( section): previous uterine surgery Preadmission Labs Last OB Lab Results: 2 Blood Type O Positive 06/25/24 06:48 Antibody Screen Negative 06/25/24 06:48 Hct 36.1 % (36-46) 06/25/24 06:48 Hgb 12.4 g/dL (12.0-16.0) 06/25/24 06:48 Hep Bs Antigen Negative s/c (NEGATIVE) 01/02/24 13:53 Hepatitis C Antibody Negative s/c (NEGATIVE) 01/02/24 13:53 Rubella Antibody 65.4 IU/mL (>15) 01/02/24 13:53 VZV IgG Antibody 1977 index (Immune >165) 01/02/24 13:53 Glucose 1 Hr 50 gm 159 mg/dL (76-139) H 04/02/24 09:01 Group B Strep (PCR) Neg for grp b strep 06/21/24 15:30 -: Chlamydia screen: negative, Gonorrhea screen: negative and Urine: negative -: PAP smear: Normal Genetic Screens: Cell-free DNA: Normal (normal male) and Alpha-fetoprotein: Normal External Labs -: Urine: negative Prior (ies) Past Pregnancies Del. Date GA/Weeks Labor Lgth Wt Sex Route Outcome Anesthesia Place Delv Breastfeed Preg Comp Name 04/24/19 6 spontaneous 08/24/19 7.5 spontaneous 04/24/21 6-7 spontaneous 04/13/22 37 36 6 lb 3 oz Male live - full term [facility] Still going as of 11/20/23 induced hyper- pre-eclampsia Johnny Delivery Date: 04/24/19 Last Updated by: Carolyn Walden R.N. Missed AB. D&C to complete. Delivery Date: 08/24/19 Last Updated by: Carolyn Walden R.N. Used medication to complete. Delivery Date: 04/24/21 Last Updated by: Carolyn Walden R.N. Missed AB. D&C to complete. Evaluation Evaluation Baseline heart rate: 140 Variability: Moderate (11-25) monitor accelerations: Present Monitor Decelerations: Absent Status: Category l FORMERLY [facility], [facility] Medical History depression Anembryonic (~2020) Ankle pain (~2016) Unresponsive episode (~10/2019) Submucous uterine fibroid (~2018) PTSD (post-traumatic stress disorder) (~2019) COVID-19 (~06/2021) Vaginal bleeding during (~09/06/21) Substance abuse (~2019) GERD (gastroesophageal reflux disease) (~2016) Idiosyncratic reaction to medication after proper dose (~10/2019) Numbness Gastritis (~2018) Closed left ankle fracture Surgical History Previous section [place] teeth extracted (~2008) History of hysteroscopy (11/02/20) History of surgery (04/08/18) Hx of cholecystectomy (~2016) Family History Father Diabetes mellitus Mother No problems noted. Grandfather No problems noted. Grandmother No problems noted. Grandfather Family estrangement Grandmother Unknown whether patient has any health problems Sister Down syndrome Brother ADHD (attention deficit hyperactivity disorder) Social History marital status: number of children: 1 household members: spouse and children lives independently: Yes caregiver/support person: Yes housing: house pets and animals: Yes (1 dog) education level: college (Some college, general ed. ) occupational status: unemployed current occupational exposures/hazards: No special brennan needs: No travel history: over 6 months ago seatbelt use: always water heater temp set < 120 deg: Yes working smoke detector in home: Yes fire extinguisher in home: Yes carbon monox detector in home: Yes firearms in home: Yes firearms unloaded and locked: Yes do you feel safe at home: Yes Smoking Status: Never smoker Tobacco: How many years used: 5 quit status: quit date established (Quit cigs early 2020, quit vaping 07/2021. ) second hand exposure: Yes ( smokes, not in the house or when pt is in the car with him) alcohol intake: former (quit drinking w/ successful ) substance use type: marijuana (Stopped w . ) during the past year weight has: other (below pre-baby weight) well-balanced diet: about half the time daily servings fruits/ve-4 caffeine: No Type(s) of exercise: walking frequency: does not exercise Meds Home Medications and Allergies Home Medications Medication Instructions Recorded Confirmed Type prenat.vits,fang,snl-yoop-jhhug 1 tab PO DAILY 09/17/21 06/21/24 History certolizumab pegol 400 mg/2 mL 200 mg SUBCUT Q2W 12/19/22 06/21/24 History (200 mg/mL x2) subcutaneous syringe kit (Cimzia) prednisone 5 mg tablet 5 mg PO DAILY PRN 09/11/23 06/21/24 History ondansetron 4 mg disintegrating 4 mg PO Q6H PRN nausea and 11/20/23 06/21/24 Rx tablet vomiting in #20 tabs progesterone micronized 200 mg 200 mg PO BEDTIME 14 days #14 caps 12/17/23 06/21/24 Rx capsule (Prometrium) Allergies Allergy/AdvReac Type Severity Reaction Status Date / Time fentanyl AdvReac Severe Unresponsive Verified 06/21/24 14:30 after 50 mcg OB Exam Narrative Exam Narrative: Generally: Patient is sitting up in bed, no acute distress Lungs: Clear to auscultation bilaterally Cardiovascular: Regular rate and rhythm Fundal height: 38 cm Estimated weight: 6-1/2 lb Extremities: No edema Objective Labs 06/25/24 06:48 Labs: Laboratory Results - last 24 hr 06/25/24 06:48 WBC 8.7 RBC 3.98 L Hgb 12.4 Hct 36.1 MCV 90.8 MCH 31.3 MCHC 34.4 RDW 13.9 Plt Count 208 Neut % (Auto) 59.5 Lymph % (Auto) 32.1 [place] % (Auto) 6.7 Eos % (Auto) 1.3 L Baso % (Auto) 0.4 Neut # (Auto) 5200 Lymph # (Auto) 2800 [place] # (Auto) 600 Eos # (Auto) 100 Baso # (Auto) 0 Blood Type O Positive Antibody Screen Negative Assessment and Plan Assessment and Plan Assessment and Plan narrative: Assessment: 28-year-old 5 para 1 at 37-,3/7 weeks gestation with a prior section Patient with multiple autoimmune disorders including lupus and rheumatoid arthritis Plan: Repeat low-transverse section The risks, benefits, and alternatives to the procedure were explained to the patient. The risks including bleeding, infection, injury to the bowel, bladder, or ureters. She understands these risks and agrees to proceed. A full par Q was held and consent form was signed. Time-Based Coding :: [TOTAL MINUTES] spent with patient and on the chart (including review of chart, obtaining history, exam, reviewing outside data, placing orders, documenting exam and treatment plan, and counseling patient) on [DATE].
--- NOTE | 2024-06-25 07:54 | PM.PREOP ---
Pre-operative Note Interval Note History & Physical reviewed/Exam performed by Physician: Yes Changes to H&P: No H&P completed within 30 days and has changed as indicated here:: 06/25/24
[2024-06-25] MEDS: CEFAZOLIN 2 GM/100 ML PREMIX 100 ML IV (08:03)
[2024-06-25] MEDS: ACETAMINOPHEN IV 1,000 MG/100 ML VIAL 400 MG IV (08:07)
--- NOTE | 2024-06-25 08:28 | SUR.OPER ---
Supine on Padded OR bed, head on pillow, safety belt at thigh, arms secured on padded arm boards at <90 degrees abduction. Bump under right buttock. Legs uncrossed with pillow under knees, gel pad to heels, tape over blanket to lower legs.
--- NOTE | 2024-06-25 08:54 | SUR.OPER ---
Viable baby boy born at 0837 on 06-25-2024.
--- NOTE | 2024-06-25 09:31 | PM.OBCS.1 ---
Operative Date/Time/Diagnoses Date of procedure: 06/25/24 Time of procedure: 09:31 Pre-op diagnosis: 37 wks gestation Previous section SLE RA Post-op diagnosis: same Procedure & Clinicians Procedure: Repeat low-transverse section Same procedure as scheduled: Yes Indications: Patient is a 28-year-old 5 para 1 at 37+3 weeks' gestation Autoimmune disorders Previous section Surgeon: Renea Watts Coding Consultant: Kamaljit Benitez Reason for Coding Consultant: The per diem physical therapist assistant was necessary to retract upon entry into the abdomen and uterus. He assisted with delivery of the infant with fundal pressure. He assisted with closure with retraction, clipping of suture, and closure of the contralateral fascia Anesthesia Type: Spinal (With Duramorph) Operative Notes Findings: Live male infant in the vertex presentation Normal uterus, tubes, and ovaries Clear amniotic fluid Closure Type: primary Specimen(s): cord blood and placenta Intraoperative meds administered: Acetaminophen, Duramorph, Ketorolac and Pitocin Estimated Blood Loss (mL): 300 Blood products transfused: none Procedure in detail: The patient was taken to the operating room where she was placed in the seated position. Spinal anesthesia with Duramorph was administered. The patient was then placed in the dorsal supine position with a leftward tilt. She was prepped and draped in the usual sterile fashion. A timeout was performed. After spinal analgesia was found to be adequate, a Pfannenstiel skin incision was made through the previous incision and carried through to the underlying layer fascia. The fascia was nicked in the midline, and the incision extended bilaterally with the Aburto scissors. The superior aspect of the fascial incision was grasped with a Mario clamps, elevated, and the underlying rectus muscles dissected off sharply and bluntly. Attention was then turned to the inferior aspect of this incision which in a similar fashion was grasped with a [place] clamps, elevated, and the underlying rectus muscles dissected off sharply and bluntly. The rectus muscles were in the midline. The peritoneum was identified, grasped between 2 hemostats, and entered sharply with the Metzenbaum scissors. This incision was extended superiorly and inferiorly with good visualization of the bladder. The bladder blade was inserted. The vesicouterine peritoneum was identified, grasped with the pickup, and entered sharply with the Metzenbaum scissors. This incision was extended bilaterally, and the bladder flap was created digitally. The bladder blade was reinserted. The lower uterine segment was incised in a transverse fashion with the scalpel. Upon entering the amniotic sac there was moderate amount of clear amniotic fluid. The infant's head was delivered without difficulty. The nose and mouth were suctioned with bulb suction. The remainder of the body delivered without difficulty. The cord was double clamped and cut after 1 minute. The was handed off to waiting RN and RT. The placenta was delivered by expression. The uterus was cleared of all clots and debris. The uterine incision was repaired with #1 chromic in a running interlocking fashion, and a second layer the same suture was used for an imbricating layer. Hemostasis was achieved. The tubes and ovaries were examined and were found to be normal. The gutters were cleared of all clots and debris. The parietal peritoneum was closed using 2-0 Vicryl in a running fashion. The fascia was reapproximated using 0 Vicryl in a running fashion. The subcutaneous layer was copiously irrigated with warm normal saline. 5 simple interrupted sutures of 3-0 Vicryl were placed to reapproximate the subcutaneous layer. The skin was closed with 4-0 Monocryl in a subcuticular fashion. Steri-Strips were placed. An Aquacel dressing was placed. The uterus was expressed of a small amount of old blood. Sponge, lap, and instrument counts were correct x-2. The patient tolerated the procedure well, and was taken to PACU in stable condition. Complications: none [place] Baby 1: Infant Gender: Male Presentation: vertex Position: Left Occiput Anterior Placental Delivery Description: Expressed Cord Vessel Description: 3 Vessels score (1 min): 9 score (5 min): 9 weight: 7 lb 6.1 oz Post-operative Condition: stable Disposition: PACU Aftercare: routine postop
[2024-06-25] MEDS: ONDANSETRON 4 MG/2 ML INJ IV ×2 (10:20→14:05)
[2024-06-25] MEDS: METOCLOPRAMIDE 10 MG/2 ML INJ IV (11:06)
[2024-06-25] MEDS: SCOPOLAMINE 1 PATCH TOP (12:04)
[2024-06-25] MEDS: LACTATED RINGERS 1,000 ML 125 ML IV (12:27)
[2024-06-25] MEDS: KETOROLAC 30 MG/ML VIAL IV ×2 (14:05→20:00)
[2024-06-25] MEDS: ACETAMINOPHEN 325 MG TABLET 650 MG PO ×2 (17:27→22:42)
[2024-06-25] MEDS: LANOLIN OINT 7 GM 1 APPLIC TOP (19:59)
[2024-06-26] MEDS: KETOROLAC 30 MG/ML VIAL IV (01:57)
[2024-06-26] MEDS: ACETAMINOPHEN 325 MG TABLET 650 MG PO ×2 (05:40→12:41)
[2024-06-26 06:26] LABS: Hematocrit 27.4 % (36-46); Hemoglobin 9.6 g/dL (12.0-16.0)
[2024-06-26] MEDS: IBUPROFEN 600 MG TABLET PO ×2 (08:05→14:06)
[2024-06-26] MEDS: DOCUSATE 100 MG CAPSULE PO (08:05)
[2024-06-26] MEDS: PRENATAL VIT,CALC/IRON/FOLIC 1 TABLET 1 TAB PO (08:06)
[2024-06-26] MEDS: diphenhydrAMINE 50 MG/ML VIAL 25 MG IV (09:24)
--- NOTE | 2024-06-28 07:50 | PM.OBDS.1 ---
Discharge Providers Provider Date of admission: 06/25/24 06:07 Discharge Date: 06/26/24 Primary care physician: PRO Sommers Consults: 06/25/24 10:07 Consult to Residential Case Manager Routine Comment: Discharge provider: Renea Watts MD Summary Hospital Course Date Patient Seen: 06/26/24 Time Patient Seen: 08:45 Diagnoses: 37-3/7 weeks gestation Systemic lupus erythematous Rheumatoid arthritis Recurrent loss Previous section Hospital Course: Patient is a 28-year-old 5 para 2 who presented on June 25, 2024 for a scheduled repeat section at 37-,3/7 weeks gestation. The surgery was done earlier than normal due to patient's history of autoimmune disorders. She underwent this procedure without complication. Her postoperative course was unremarkable. On June 26, 2024 she was voiding without the catheter, she was tolerating a diet, she was ambulating independently, pain was well controlled, she was passing flatus. was going well. Her bleeding was tapering. Peripartum Data Delivery Method: Section (Repeat) Procedures: Repeat low-transverse section Spinal anesthesia complications: none [place] 1: Gender: Male Disposition of : home Status at Discharge Cognitive/behavioral status at discharge: oriented Functional status at discharge: independent ambulation Overall status at discharge: patient is back to baseline Time Spent with Patient Time attestation: Total time spent providing and/or coordinating discharge services: Time spent: Less than 30 minutes Objective Labs 06/26/24 06:16 Exam Vital Signs (past 8 hours): Oxygen Delivery Method Room Air Oxygen Flow Rate 0 Narrative Exam Narrative: Generally: Patient walking around in room, no acute distress Lungs: Clear to auscultation bilaterally Cardiovascular: Regular rate and rhythm Fundus: Firm at U Incision: Clean dry and intact with Aquacel dressing Extremities: No edema, negative [place] Discharge Plan Discharge Plan Patient Disposition: Home Provider Discharge Comment: Call with fever, chills, redness or drainage around the incision, or bleeding vaginally more than a pad in an hour Ibuprofen 600 mg every 6 hours as needed Tylenol 650 mg every 6 hours as needed Discharge orders & Medications Prescriptions: Continued prenat.vits,fang,hdb-vnhr-dvwin Tablet 1 tab PO DAILY Cimzia 400 mg/2 mL (200 mg/mL x 2) syringe kit 200 mg SUBCUT Q2W prednisone 5 mg tablet 5 mg PO DAILY PRN Discontinued ondansetron 4 mg tablet,disintegrating 4 mg PO Q6H PRN (Reason: nausea and vomiting in ) Qty: 20 1RF progesterone micronized [Prometrium] 200 mg capsule 200 mg PO BEDTIME 14 Days Qty: 14 1RF Follow up/Referrals: Renea Watts MD [Physician] - (My office will call the patient on Friday to schedule Aquacel dressing removal) Diet/Activity/Treatments Diet: Diet as Tolerated Activity: No heavy lifting Skin/Wound/Dressing Care Report to your healthcare provider any signs of infection, such as:: chills, fever, increased pain, unusual drainage and unusual redness Dressing: Do not remove Visit Report/Discharge Packet Instructions: DI for Stand Alone Forms: Patient Portal/API, Stroke Signs & Symptoms Discharge Data Primary Care Provider: Carlos Bonner
== END 2024-06-26 15:57 | disposition home or self-care (01) | DRG 788 ==
PROVIDERS: Admitting Provider Obstetrics & Gynecology; PCP Registered Nurse Diabetes Educator; Referring Provider Obstetrics & Gynecology; Visit Provider Obstetrics & Gynecology
PROC: 10D00Z1 Extraction of Products of Conception, Low, Open Approach (ICD-10-PCS; CPT 59514; principal; 2024-06-25 07:45)
DX: O34.211 Maternal care for low transverse scar from previous cesarean delivery (principal); Z3A.37 37 weeks gestation of pregnancy; Z37.0 Single live birth
CPT/HCPCS: 36415; 59050; 85014; 85018; 85025; 86850; 86900; 86901; J0136; J0690; J1200; J1885; J2274; J2405; J2765

== ENCOUNTER → 2025-01-08 11:52 | Outpatient (CLI) | payer OTHER, SELFPAY ==
[2021-09-12 08:46] VITALS: BMI 31.1
[2025-01-08 12:58] LABS: Add Manual Diff / Slide Review NO; Basophils Absolute Auto 0 /uL (0-100); Basophils Percent Auto 0.3 % (0-2); Eosinophils Absolute Auto 200 /uL (0-450); Eosinophils Percent Auto 2.1 % (2-4); Hematocrit 37.7 % (36-46); Hemoglobin 12.7 g/dL (12.0-16.0); Lymphocytes Absolute Auto 3800 /uL (1100-4500); Lymphocytes Percent Auto 42.6 % (25-40); Mean Corpuscular HGB Conc 33.6 % (30-36); Mean Corpuscular Hemoglobin 30.7 PG (26-34); Mean Corpuscular Volume 91.2 fL (80-100); Monocytes Absolute Auto 700 /uL (0-900); Monocytes Percent Auto 8.4 % (3-14); Neutrophils Absolute Auto 4100 /uL (1500-7000); Neutrophils Percent Auto 46.6 % (50-75); Platelet Count 281 X10^3/uL (150-400); Red Blood Cell Count 4.14 X10^6/uL (4.0-5.2); White Blood Cell Count 8.9 X10^3/uL (4.5-11.0)
[2025-01-08 13:12] LABS: Alanine Aminotransferase 28 IU/L (<35); Albumin 4.7 g/dL (3.5-5.0); Albumin Globulin Ratio 1.5 (1.0-2.8); Alkaline Phosphatase 82 U/L (38-126); Aspartate Aminotransferase 31 IU/L (14-36); BUN Creatinine Ratio 22.6 (6-22); Bilirubin Total 0.6 mg/dL (0.2-1.3); Blood Urea Nitrogen 12 mg/dL (7-17); Calcium 9.4 mg/dL (8.4-10.2); Carbon Dioxide 26 mmol/L (22-32); Chloride 105 mmol/L (98-107); Estimated Glomerular Filt Rate > 60 mL/min (>60); Globulin 3.2 g/dL (1.7-4.1); Glucose 96 mg/dL (70-100); HEMOLYSIS < 15 (0-50); Sodium 140 mmol/L (137-145); Total Protein 7.9 g/dL (6.3-8.2)
[2025-01-08 13:17] LABS: Erythrocyte Sedimentation Rate 14 MM/HR (0-20)
[2025-01-09 08:10] LABS: CRP, High Sensitivity 6.71 mg/L (0.00-3.00)
== END ==
LOC: LAB 11:54
PROVIDERS: PCP Registered Nurse Diabetes Educator; Referring Provider Internal Medicine; Visit Provider Internal Medicine
DX: M06.09 Rheumatoid arthritis without rheumatoid factor, multiple sites (principal)
CPT/HCPCS: 36415; 80053; 85025; 85651; 86140

== ENCOUNTER → 2025-01-28 08:08 | Outpatient (CLI) | payer OTHER, SELFPAY ==
[2021-09-12 08:46] VITALS: BMI 31.1
--- NOTE | 2025-01-28 08:09 | DI.ECHO.S_ITS ---
[facility]+ [facility] : : [address] : : [place] : : [id number] : : Phone: [phone] Echocardiogram Report + + :Name: ANA JONHSON Study Date: 01/28/2025 Height: 61 in : :Hospital ReadingLocation: Weight: 145 lb : : Gender: Female BSA: 1.6 m2 : :: 1995 Age: 29 yrs BP: 128/75 mmHg: :Reason For Study: HEART FAILURE : :Ordering Physician: JASON, : :ANA Performed By: Kamaljit Yusuf : :Referring: ANA GOMEZ : + + Interpretation Summary Normal echocardiogram. No previous echo images are available for comparison. Procedure: A two-dimensional transthoracic echocardiogram with color flow and Doppler was performed. The study quality was technically good. There is no prior echocardiogram noted for this patient. The patient was in normal sinus rhythm during the exam. Left Ventricle: The left ventricle is normal in size. There is normal left ventricular wall thickness. There is no thrombus. The ejection fraction is estimated to be 50-55%. There are no focal wall motion abnormalities. Diastolic parameters suggest probable normal left ventricular diastolic function and normal filling pressures. Right Ventricle: The right ventricle is normal in size and function. Atria: The left atrial size is normal. Right atrial size is normal. There is no Doppler evidence for an interatrial shunt. Mitral Valve: The mitral valve leaflets appear normal. There is no evidence of stenosis, fluttering, or prolapse. There is no mitral regurgitation noted. Aortic Valve: The aortic valve is trileaflet. The aortic valve opens well. No aortic regurgitation is present. Tricuspid Valve: The tricuspid valve leaflets are thin and pliable. No tricuspid regurgitation. Pulmonic Valve: The pulmonic valve leaflets are thin and pliable; valve motion is normal. There is no pulmonic valvular regurgitation. Great Vessels: The aortic root is normal size. The dimensions of the ascending aorta are normal. The pulmonary artery is normal size. The inferior vena cava appeared normal. Pericardium/ Pleura There is no pericardial effusion. There is no pleural effusion. MMode/2D Measurements & Calculations LVIDd: 5.0 cm LVOT diam: 2.2 cm LVIDs: 3.5 cm Ao root diam: 3.1 cm FS: 30.6 % asc Aorta Diam: 2.9 cm EPSS: 1.0 cm Ao Arch Diam (Prox Trans): 1.7 cm IVSd: 0.85 cm LVPWd: 0.97 cm LV lux. diameter/BSA (cm/m^2): 3.1 LV sys. diameter/BSA (cm/m^2): 2.1 LA A2 area: 17.4 cm2 RA long axis: 4.7 cm LA A4 area: 18.8 cm2 RA area: 16.0 cm2 LA length (vol): 5.1 cm RA vol: 46.3 ml LA vol: 54.1 ml RA : 28.1 ml/m2 LA vol index: 32.8 ml/m2 IVC diam: 1.2 cm RVD1 (basal): 3.7 cm RVD2 (mid): 2.8 cm Doppler Measurements & Calculations Ao V2 max: 135.2 cm/sec LVOT Max Schuyler: 97.6 cm/sec Ao V2 mean: 97.7 cm/sec LV V1 max P.8 mmHg Ao max P.3 mmHg LV V1 VTI: 22.0 cm Ao mean P.2 mmHg NILO(I,D): 2.7 cm2 Ao V2 VTI: 30.1 cm NILO(V,D): 2.7 cm2 sev ratio: 0.73 NILO indexed to BSA (cm^2/m^2): 1.7 MV E max schuyler: 66.4 cm/sec PA V2 max: 81.5 cm/sec MV A max schuyler: 37.9 cm/sec PA V2 mean: 55.1 cm/sec MV E/A: 1.8 PA mean P.4 mmHg Med Peak E' Schuyler: 8.3 cm/sec PA pr(Accel): 10.5 mmHg E/E' med: 8.0 Lat Peak E' Schuyler: 16.2 cm/sec E/E' lat: 4.1 E/e' average: 6.0 MV dec time: 0.20 sec SV(LVOT): 82.1 ml Reading Physician:01:27 PM
== END ==
PROVIDERS: PCP Registered Nurse Diabetes Educator; Referring Provider Registered Nurse Diabetes Educator; Visit Provider Registered Nurse Diabetes Educator
DX: M06.9 Rheumatoid arthritis, unspecified (principal); Z13.9 Encounter for screening, unspecified; Z51.81 Encounter for therapeutic drug level monitoring; Z79.620 Long term (current) use of immunosuppressive biologic
CPT/HCPCS: 93306

== ENCOUNTER → 2025-05-20 16:24 | Outpatient (CLI) | payer OTHER, SELFPAY ==
[2021-09-12 08:46] VITALS: BMI 31.1
[2025-05-20 17:27] LABS: Influenza A - CEPHEID Flu A NEGATIVE (NEGATIVE); Influenza B - CEPHEID Flu B POSITIVE (NEGATIVE); Respiratory Syncytial Virus Negative (Negative)
[2025-05-20 17:37] LABS: COVID-19 CEPHEID 4-PLEX PCR Negative (Negative)
== END ==
PROVIDERS: PCP Registered Nurse Diabetes Educator; Visit Provider Nurse Practitioner Family
DX: J02.9 Acute pharyngitis, unspecified (principal); R05.1 Acute cough
CPT/HCPCS: 0241U; 87070